=== PATIENT | male | born 1960 | race Caucasian/White ===

== ENCOUNTER → 2016-08-14 | Outpatient (CLI) | payer OTHER ==
[2016-08-14 14:42] LABS: BASO # 0.1 K/mm3 (0.0-0.2); BASO % 1.3 % (0.0-1.0); EOS # 0.2 K/mm3 (0.0-0.50); EOS % 2.2 % (0.0-3.0); LARGE UNSTAINED CELL # 0.2 K/mm3 (0.0-0.4); LARGE UNSTAINED CELL % 3.3 % (0.0-4.0); LYMPH # 2.1 K/mm3 (1.5-4.5); LYMPH % 28.2 % (24.0-44.0); MEAN CORPUSCULAR HEMOGLOBIN 33.6 pg (27.0-33.0); MEAN CORPUSCULAR HGB CONC 33.5 g/dl (32.0-36.5); MEAN CORPUSCULAR VOLUME 100.4 fl (80.0-96.0); MONO # 0.5 K/mm3 (0.0-0.8); MONO % 6.9 % (0.0-5.0); NEUTROPHILS # 3.9 K/mm3 (1.8-7.7); NEUTROPHILS % 58.1 % (36.0-66.0); PLATELET COUNT, AUTOMATED 200 k/mm3 (150-450); RED CELL DISTRIBUTION WIDTH 13.7 % (11.5-14.5); WHITE BLOOD COUNT 6.7 K/mm3 (4.0-10.0)
[2016-08-14 15:12] LABS: ALBUMIN 3.8 GM/DL (3.2-5.2); ALBUMIN/GLOBULIN RATIO 1.27 (1.00-1.93); ALKALINE PHOSPHATASE 71 U/L (45-117); ALT/SGPT 37 U/L (12-78); ANION GAP 5 MEQ/L (8-16); AST/SGOT 20 U/L (15-37); BILIRUBIN,TOTAL 0.4 MG/DL (0.2-1.0); BLOOD UREA NITROGEN 10 MG/DL (7-18); CALCIUM LEVEL 8.8 MG/DL (8.5-10.1); CARBON DIOXIDE LEVEL 31 MEQ/L (21-32); CHLORIDE LEVEL 106 MEQ/L (98-107); CHOLESTEROL LEVEL 148 MG/DL (<200); CREATININE FOR GFR 1.02 MG/DL (0.70-1.30); GLOMERULAR FILTRATION RATE > 60.0 (>56); GLUCOSE, FASTING 80 MG/DL (70-105); POTASSIUM SERUM 4.4 MEQ/L (3.5-5.1); SODIUM LEVEL 142 MEQ/L (136-145); TOTAL PROTEIN 6.8 GM/DL (6.4-8.2); TRIGLYCERIDES LEVEL 122 MG/DL (<150)
== END ==
LOC: M LAB 13:30
PROVIDERS: ATTEND Emergency Medicine
DX: I10 Essential (primary) hypertension (principal)

== ENCOUNTER 2016-09-05 04:48 | Emergency (ER) | payer OTHER ==
[2016-09-05] MEDS ORDERED: CLINDAMYCIN 150 MG CAP As Ordered ONE (07:08)
--- NOTE | 2016-09-05 07:17 | EDDOCDS ---
Nurse's Notes [facility] Name: Leoncio Toribio Age: 55 yrs Sex: Male : 1960 Arrival Date: 09/05/2016 Time: 04:48 Bed I8 / 16 Private MD: Diagnosis: Atypical facial pain-dental abscess? Presentation: 09/05 04:52 Presenting complaint: Patient states: he had all of his teeth pulled Wednesday. Reports nn1 he believes abscess is forming to left side of jaw. Reports increased pain in mouth. Reports he is currently taking antibiotics. Adult Sepsis Screening: The patient does not have new or worsening altered mentation. Patient's respiratory rate is less than 22. Systolic blood pressure is greater than 100. Patient has a qSOFA score of 0- Negative Sepsis Screen. Suicide/Homicide risk assessment- the patient denies having any suicidal and/or homicidal ideations and does not present with any other emotional, behavioral or mental health complaints. Status: Patient is not a pharmacy service associate or dependent. Transition of care: patient was not received from another setting of care. 04:52 Acuity: VERÓNICA Level 4 nn1 04:52 Method Of Arrival: Walkin/Carried/Asstd nn1 Triage Assessment: 04:59 General: Appears in no apparent distress, comfortable, Behavior is appropriate for age, nn1 cooperative. Pain: Location: jaw Pain currently is 4 out of 10 on a pain scale. HIV screening NA for this visit Offered previously. Neurological: Level of Consciousness is awake, alert. EENT: Oral mucosa is moist. Poor dentition noted. All teeth removed, stitches in place. Swelling noted to left lower jaw. . Historical: - Allergies: No known drug Allergies; - Home Meds: 1. aspirin 81 mg Oral TbEC 1 tab once daily 2. bupropion HCl 300 mg Oral Tb24 1 tab once daily 3. carvedilol 12.5 mg oral tab 1 tab 2 times per day 4. gabapentin 600 mg Oral tab 1 tab 3 times per day 5. Percocet 5-325 mg Oral tab 1 tab every 4 hours as needed 6. Simvastatin Unknown Oral once daily 7. amoxicillin-pot clavulanate 500-125 mg Oral tab 1 tab every 8 hours 8. Ventolin HFA 90 mcg/actuation Nebulizer HFAA 1 puff as needed - PMHx: Hypercholesterolemia; Hypertension; [place]; Chronic Back pain; High Cholesterol; - PSHx: Cardiac stents; Carpal Tunnel Repair- Left; Angioplasty (2010); oral surgery; - Social history: Smoking status: Patient uses tobacco products, heavy tobacco smoker. No barriers to communication noted, The patient speaks fluent Turkmen, Speaks appropriately for age. - Family history: Not pertinent. - : The pt / caregiver states he / she is not on anticoagulants. Home medication list is obtained from the patient. - Exposure Risk Screening:: None identified. Screenin:10 Screening information is obtained from the patient. Fall risk: No risks identified. cf2 Assistance ADL's: requires no assistance with activities of daily living. Abuse/DV Screen: The patient / caregiver reports he/she is: not in a situation that causes fear, pain or injury. Nutritional screening: No deficits noted. Advance Directives: Currently, there is no health care proxy. There is no active DNR order. There is no living will. There is no Power of Hot Sealing Machine Operator. home support is adequate. Assessment: 05:09 General: Appears in no apparent distress, uncomfortable, well nourished, well groomed, cf2 Behavior is appropriate for age, cooperative. Pain: Location: dental and mouth Pain currently is 8 out of 10 on a pain scale. Neurological: Level of Consciousness is awake, alert, Oriented to person, place, time. Cardiovascular: Rhythm is regular. Respiratory: Airway is patent Respiratory effort is even, unlabored, Respiratory pattern is regular, symmetrical. Derm: Skin is intact, Skin is dry, Skin is pink, warm & dry. Skin temperature is warm. 05:44 General: Patient laying in bed with at bedside. No apparent distress. Appears cf2 comfortable. Call brown within reach. Will continue to monitor.. 06:25 General: Appears in no apparent distress, Behavior is appropriate for age, cooperative. kas2 Neurological: Level of Consciousness is awake, alert, Oriented to person, place, time. Respiratory: Airway is patent Respiratory effort is even, unlabored, Respiratory pattern is regular, symmetrical. Derm: Skin is intact, Skin is dry, Skin is pink, warm & dry. Skin temperature is warm. 07:15 General: Appears in no apparent distress, comfortable, Behavior is appropriate for age, mlb1 cooperative, pleasant. Pain: Location: mouth Pain currently is 6 out of 10 on a pain scale. Neurological: No deficits noted. EENT: No deficits noted. Respiratory: No deficits noted. Vital Signs: 04:58 BP 132 / 78; Pulse 88; Resp 18; Temp 97.0(O); Pulse Ox 96% on R/A; Weight 77.11 kg; nn1 Height 5 ft. 6 in. (167.64 cm); Pain 4/10; 07:15 BP 125 / 83; Pulse 70; Resp 16; Temp 97.2(TE); Pulse Ox 97% on R/A; Pain 6/10; mlb1 04:58 Body Mass Index 27.44 (77.11 kg, 167.64 cm) nn1 Vitals: 04:58 Log In Time: September 05, 2016 at 04:48. nn1 ED Course: 04:50 Patient visited by Hyacinth Chowdary. gjb 04:50 Patient moved to Waiting gjb 04:53 Triage Initiated nn1 05:03 Patient moved to 14 nn1 05:05 Patient moved to I8 / 16 nn1 05:07 Patient visited by Maryjo Mcclellan RN. cf2 05:11 Patient visited by Maryjo Mcclellan RN. cf2 05:45 Patient visited by Maryjo Mcclellan RN. cf2 06:26 Patient visited by Aleida Talavera RN. kas2 06:38 Patient visited by Aleida Talavera RN. kas2 06:57 Ramón Burk PA-C is PHCP. cc10 06:57 Daryl Jean-Baptiste MD is Attending Physician. cc10 06:59 Patient visited by Ramón Burk PA-C. cc10 06:59 Patient visited by Ramón Burk PA-C. cc10 07:04 Maryjo Mcclellan RN is Primary Nurse. cf2 07:04 Patient visited by Maryjo Mcclellan RN. cf2 07:04 Your, Dentist is Referral Physician. cc10 07:10 No IV's were initiated during this patient's visit. No procedures done that require mlb1 assistance. 07:11 Patient visited by Richie Franklin, TIA. mlb1 07:11 The patient / caregiver is instructed regarding the plan of care and ED course. mlb1 07:16 Patient visited by Rigoberto, Richie B, RN. mlb1 Administered Medications: 07:10 Drug: Clindamycin 300 mg [clindamycin 150 mg capsule (2 caps)] Route: PO; mlb1 Order Results: There are currently no results for this order. Outcome: 07:04 Discharge ordered by Provider. cc10 07:15 Discharge Assessment: Patient awake, alert and oriented x 3. No cognitive and/or mlb1 functional deficits noted. Patient verbalized understanding of disposition instructions. patient administered narcotics - no. The following High Risk Discharge criteria are identified: None. Discharged to home ambulatory. Condition: good. Discharge instructions given to patient, Instructed on discharge instructions, follow up and referral plans. medication usage, Demonstrated understanding of instructions, medications, Pt was receptive of discharge instructions/ teaching. Prescriptions given X 1. No special radiology studies were completed. Property sent home with patient. 07:16 Patient left the ED. mlb1 Signatures: Richie Franklin, RN RN mlb1 Ramón Burk, PA-C PA-C cc10 Rigo AlmaguerRN RN nn1 Hyacinth Chowdary Kim,RN RN kas2 Maryjo McclellanRN RN cf2 MALGORZATA
--- NOTE | 2016-09-05 07:17 | EDDOCDS ---
Physician Documentation [facility] Name: Leoncio Toribio Age: 55 yrs Sex: Male : 1960 Arrival Date: 09/05/2016 Time: 04:48 Bed I8 / 16 Private MD: Disposition: 09/05/16 07:04 Discharged to Home/Self Care. Impression: Atypical facial pain - dental abscess?. - Condition is Stable. - Discharge Instructions: Dental Abscess. - Prescriptions for Clindamycin HCl 300 mg Oral Capsule - take 1 capsule by ORAL route every 6 hours; 40 capsule. - Medication Reconciliation form. - Follow up: Your, Dentist; When: Call to arrange an appointment; Reason: Recheck today's complaints, Continuance of care. - Problem is an ongoing problem. - Symptoms are unchanged. Historical: - Allergies: No known drug Allergies; - Home Meds: 1. aspirin 81 mg Oral TbEC 1 tab once daily 2. bupropion HCl 300 mg Oral Tb24 1 tab once daily 3. carvedilol 12.5 mg oral tab 1 tab 2 times per day 4. gabapentin 600 mg Oral tab 1 tab 3 times per day 5. Percocet 5-325 mg Oral tab 1 tab every 4 hours as needed 6. Simvastatin Unknown Oral once daily 7. amoxicillin-pot clavulanate 500-125 mg Oral tab 1 tab every 8 hours 8. Ventolin HFA 90 mcg/actuation Nebulizer HFAA 1 puff as needed - PMHx: Hypercholesterolemia; Hypertension; [place]; Chronic Back pain; High Cholesterol; - PSHx: Cardiac stents; Carpal Tunnel Repair- Left; Angioplasty (2009); oral surgery; - Social history: Smoking status: Patient uses tobacco products, heavy tobacco smoker. No barriers to communication noted, The patient speaks fluent Cymro, Speaks appropriately for age. - Family history: Not pertinent. - : The pt / caregiver states he / she is not on anticoagulants. Home medication list is obtained from the patient. - Exposure Risk Screening:: None identified. Vital Signs: 09/05 04:58 BP 132 / 78; Pulse 88; Resp 18; Temp 97.0(O); Pulse Ox 96% on R/A; Weight 77.11 kg / nn1 170 lbs; Height 5 ft. 6 in. (167.64 cm); Pain 4/10; 07:15 BP 125 / 83; Pulse 70; Resp 16; Temp 97.2(TE); Pulse Ox 97% on R/A; Pain 6/10; mlb1 04:58 Body Mass Index 27.44 (77.11 kg, 167.64 cm) nn1 MDM: 07:04 Clindamycin 300 mg PO once ordered. cc10 07:13 Financial registration complete. pm4 Administered Medications: 07:10 Drug: Clindamycin 300 mg [clindamycin 150 mg capsule (2 caps)] Route: PO; mlb1 Signatures: Richie Franklin RN RN mlb1 Ramón Burk, PA-C PA-C cc10 Rigo AlmaguerRN RN nn1 Gian Knight, Reg Reg pm4 MTDD
--- NOTE | 2016-09-07 08:17 | EDDOCDS ---
Nurse's Notes [facility] Name: Leoncio Toribio Age: 55 yrs Sex: Male : 1960 Arrival Date: 09/05/2016 Time: 04:48 Bed I8 / 16 Private MD: Diagnosis: Atypical facial pain-dental abscess? Presentation: 09/05 04:52 Presenting complaint: Patient states: he had all of his teeth pulled Wednesday. Reports nn1 he believes abscess is forming to left side of jaw. Reports increased pain in mouth. Reports he is currently taking antibiotics. Adult Sepsis Screening: The patient does not have new or worsening altered mentation. Patient's respiratory rate is less than 22. Systolic blood pressure is greater than 100. Patient has a qSOFA score of 0- Negative Sepsis Screen. Suicide/Homicide risk assessment- the patient denies having any suicidal and/or homicidal ideations and does not present with any other emotional, behavioral or mental health complaints. Status: Patient is not a garage door service technician or dependent. Transition of care: patient was not received from another setting of care. 04:52 Acuity: VERÓNICA Level 4 nn1 04:52 Method Of Arrival: Walkin/Carried/Asstd nn1 Triage Assessment: 04:59 General: Appears in no apparent distress, comfortable, Behavior is appropriate for age, nn1 cooperative. Pain: Location: jaw Pain currently is 4 out of 10 on a pain scale. HIV screening NA for this visit Offered previously. Neurological: Level of Consciousness is awake, alert. EENT: Oral mucosa is moist. Poor dentition noted. All teeth removed, stitches in place. Swelling noted to left lower jaw. . Historical: - Allergies: No known drug Allergies; - Home Meds: 1. aspirin 81 mg Oral TbEC 1 tab once daily 2. bupropion HCl 300 mg Oral Tb24 1 tab once daily 3. carvedilol 12.5 mg oral tab 1 tab 2 times per day 4. gabapentin 600 mg Oral tab 1 tab 3 times per day 5. Percocet 5-325 mg Oral tab 1 tab every 4 hours as needed 6. Simvastatin Unknown Oral once daily 7. amoxicillin-pot clavulanate 500-125 mg Oral tab 1 tab every 8 hours 8. Ventolin HFA 90 mcg/actuation Nebulizer HFAA 1 puff as needed - PMHx: Hypercholesterolemia; Hypertension; [place]; Chronic Back pain; High Cholesterol; - PSHx: Cardiac stents; Carpal Tunnel Repair- Left; Angioplasty (2010); oral surgery; - Social history: Smoking status: Patient uses tobacco products, heavy tobacco smoker. No barriers to communication noted, The patient speaks fluent Vietnamese, Speaks appropriately for age. - Family history: Not pertinent. - : The pt / caregiver states he / she is not on anticoagulants. Home medication list is obtained from the patient. - Exposure Risk Screening:: None identified. Screenin:10 Screening information is obtained from the patient. Fall risk: No risks identified. cf2 Assistance ADL's: requires no assistance with activities of daily living. Abuse/DV Screen: The patient / caregiver reports he/she is: not in a situation that causes fear, pain or injury. Nutritional screening: No deficits noted. Advance Directives: Currently, there is no health care proxy. There is no active DNR order. There is no living will. There is no Power of Allergist/Md. home support is adequate. Assessment: 05:09 General: Appears in no apparent distress, uncomfortable, well nourished, well groomed, cf2 Behavior is appropriate for age, cooperative. Pain: Location: dental and mouth Pain currently is 8 out of 10 on a pain scale. Neurological: Level of Consciousness is awake, alert, Oriented to person, place, time. Cardiovascular: Rhythm is regular. Respiratory: Airway is patent Respiratory effort is even, unlabored, Respiratory pattern is regular, symmetrical. Derm: Skin is intact, Skin is dry, Skin is pink, warm & dry. Skin temperature is warm. 05:44 General: Patient laying in bed with at bedside. No apparent distress. Appears cf2 comfortable. Call brown within reach. Will continue to monitor.. 06:25 General: Appears in no apparent distress, Behavior is appropriate for age, cooperative. kas2 Neurological: Level of Consciousness is awake, alert, Oriented to person, place, time. Respiratory: Airway is patent Respiratory effort is even, unlabored, Respiratory pattern is regular, symmetrical. Derm: Skin is intact, Skin is dry, Skin is pink, warm & dry. Skin temperature is warm. 07:15 General: Appears in no apparent distress, comfortable, Behavior is appropriate for age, mlb1 cooperative, pleasant. Pain: Location: mouth Pain currently is 6 out of 10 on a pain scale. Neurological: No deficits noted. EENT: No deficits noted. Respiratory: No deficits noted. Vital Signs: 04:58 BP 132 / 78; Pulse 88; Resp 18; Temp 97.0(O); Pulse Ox 96% on R/A; Weight 77.11 kg; nn1 Height 5 ft. 6 in. (167.64 cm); Pain 4/10; 07:15 BP 125 / 83; Pulse 70; Resp 16; Temp 97.2(TE); Pulse Ox 97% on R/A; Pain 6/10; mlb1 04:58 Body Mass Index 27.44 (77.11 kg, 167.64 cm) nn1 Vitals: 04:58 Log In Time: September 05, 2016 at 04:48. nn1 ED Course: 04:50 Patient visited by Hyacinth Chowdary. gjb 04:50 Patient moved to Waiting gjb 04:53 Triage Initiated nn1 05:03 Patient moved to 14 nn1 05:05 Patient moved to I8 / 16 nn1 05:07 Patient visited by Maryjo Mcclellan RN. cf2 05:11 Patient visited by Maryjo Mcclellan RN. cf2 05:45 Patient visited by Maryjo Mcclellan RN. cf2 06:26 Patient visited by Aleida Talavera RN. kas2 06:38 Patient visited by Aleida Talavera RN. kas2 06:57 Ramón Burk PA-C is PHCP. cc10 06:57 Daryl Jean-Baptiste MD is Attending Physician. cc10 06:59 Patient visited by Ramón Burk PA-C. cc10 06:59 Patient visited by Ramón Burk PA-C. cc10 07:04 Maryjo Mcclellan RN is Primary Nurse. cf2 07:04 Patient visited by Maryjo Mcclellan RN. cf2 07:04 Your, Dentist is Referral Physician. cc10 07:10 No IV's were initiated during this patient's visit. No procedures done that require mlb1 assistance. 07:11 Patient visited by Richie Franklin, TIA. mlb1 07:11 The patient / caregiver is instructed regarding the plan of care and ED course. mlb1 07:16 Patient visited by Richie Franklin RN. mlb1 07:24 [facility] Payment Agreement was scanned into [employer] and attached to record. pm4 17:01 T-Sheet-- Draft Copy was scanned into [employer] and attached to record. klr Administered Medications: 07:10 Drug: Clindamycin 300 mg [clindamycin 150 mg capsule (2 caps)] Route: PO; mlb1 Order Results: There are currently no results for this order. Outcome: 07:04 Discharge ordered by Provider. cc10 07:15 Discharge Assessment: Patient awake, alert and oriented x 3. No cognitive and/or mlb1 functional deficits noted. Patient verbalized understanding of disposition instructions. patient administered narcotics - no. The following High Risk Discharge criteria are identified: None. Discharged to home ambulatory. Condition: good. Discharge instructions given to patient, Instructed on discharge instructions, follow up and referral plans. medication usage, Demonstrated understanding of instructions, medications, Pt was receptive of discharge instructions/ teaching. Prescriptions given X 1. No special radiology studies were completed. Property sent home with patient. 07:16 Patient left the ED. mlb1 Signatures: Richie Franklin, RN RN mlb1 Ramón Burk, PA-C PA-C cc10 Rigo AlmaguerRN RN nn1 Hyacinth Chowdary KimRN RN michael2 Carol Nix Christina,RN RN cf2 Gian Knight, Reg Reg pm4 Chart Complete MTDD
--- NOTE | 2016-09-07 08:17 | EDDOCDS ---
Physician Documentation [facility] Name: Leoncio Toribio Age: 55 yrs Sex: Male : 1960 Arrival Date: 09/05/2016 Time: 04:48 Bed I8 / 16 Private MD: Disposition: 09/05/16 07:04 Discharged to Home/Self Care. Impression: Atypical facial pain - dental abscess?. - Condition is Stable. - Discharge Instructions: Dental Abscess. - Prescriptions for Clindamycin HCl 300 mg Oral Capsule - take 1 capsule by ORAL route every 6 hours; 40 capsule. - Medication Reconciliation form. - Follow up: Your, Dentist; When: Call to arrange an appointment; Reason: Recheck today's complaints, Continuance of care. - Problem is an ongoing problem. - Symptoms are unchanged. Historical: - Allergies: No known drug Allergies; - Home Meds: 1. aspirin 81 mg Oral TbEC 1 tab once daily 2. bupropion HCl 300 mg Oral Tb24 1 tab once daily 3. carvedilol 12.5 mg oral tab 1 tab 2 times per day 4. gabapentin 600 mg Oral tab 1 tab 3 times per day 5. Percocet 5-325 mg Oral tab 1 tab every 4 hours as needed 6. Simvastatin Unknown Oral once daily 7. amoxicillin-pot clavulanate 500-125 mg Oral tab 1 tab every 8 hours 8. Ventolin HFA 90 mcg/actuation Nebulizer HFAA 1 puff as needed - PMHx: Hypercholesterolemia; Hypertension; [place]; Chronic Back pain; High Cholesterol; - PSHx: Cardiac stents; Carpal Tunnel Repair- Left; Angioplasty (2009); oral surgery; - Social history: Smoking status: Patient uses tobacco products, heavy tobacco smoker. No barriers to communication noted, The patient speaks fluent Martiniquais, Speaks appropriately for age. - Family history: Not pertinent. - : The pt / caregiver states he / she is not on anticoagulants. Home medication list is obtained from the patient. - Exposure Risk Screening:: None identified. Vital Signs: 09/05 04:58 BP 132 / 78; Pulse 88; Resp 18; Temp 97.0(O); Pulse Ox 96% on R/A; Weight 77.11 kg / nn1 170 lbs; Height 5 ft. 6 in. (167.64 cm); Pain 4/10; 07:15 BP 125 / 83; Pulse 70; Resp 16; Temp 97.2(TE); Pulse Ox 97% on R/A; Pain 6/10; mlb1 04:58 Body Mass Index 27.44 (77.11 kg, 167.64 cm) nn1 MDM: 07:04 Clindamycin 300 mg PO once ordered. cc10 07:13 Financial registration complete. pm4 07:24 [facility] Payment Agreement was scanned into [employer] and attached to record. pm4 17:01 T-Sheet-- Draft Copy was scanned into [employer] and attached to record. klr Administered Medications: 07:10 Drug: Clindamycin 300 mg [clindamycin 150 mg capsule (2 caps)] Route: PO; mlb1 Signatures: Richie Franklin RN RN mlb1 Ramón Burk, PA-C PA-C cc10 Rigo Almaguer RN RN nn1 Carol Nix klr Gian Knight, Reg Reg pm4 The chart was reviewed and I authenticate all verbal orders and agree with the evaluation and treatment provided.Attachments: 07:24 [facility] Payment Agreement pm4 17:01 T-Sheet-- Draft Copy klr Chart Complete MTDD
--- NOTE | 2016-09-07 08:17 | EDDOCDS ---
Physician Documentation [facility] Name: Leoncio Toribio Age: 55 yrs Sex: Male : 1960 Arrival Date: 09/05/2016 Time: 04:48 Bed I8 / 16 Private MD: Disposition: 09/05/16 07:04 Discharged to Home/Self Care. Impression: Atypical facial pain - dental abscess?. - Condition is Stable. - Discharge Instructions: Dental Abscess. - Prescriptions for Clindamycin HCl 300 mg Oral Capsule - take 1 capsule by ORAL route every 6 hours; 40 capsule. - Medication Reconciliation form. - Follow up: Your, Dentist; When: Call to arrange an appointment; Reason: Recheck today's complaints, Continuance of care. - Problem is an ongoing problem. - Symptoms are unchanged. Historical: - Allergies: No known drug Allergies; - Home Meds: 1. aspirin 81 mg Oral TbEC 1 tab once daily 2. bupropion HCl 300 mg Oral Tb24 1 tab once daily 3. carvedilol 12.5 mg oral tab 1 tab 2 times per day 4. gabapentin 600 mg Oral tab 1 tab 3 times per day 5. Percocet 5-325 mg Oral tab 1 tab every 4 hours as needed 6. Simvastatin Unknown Oral once daily 7. amoxicillin-pot clavulanate 500-125 mg Oral tab 1 tab every 8 hours 8. Ventolin HFA 90 mcg/actuation Nebulizer HFAA 1 puff as needed - PMHx: Hypercholesterolemia; Hypertension; [place]; Chronic Back pain; High Cholesterol; - PSHx: Cardiac stents; Carpal Tunnel Repair- Left; Angioplasty (2009); oral surgery; - Social history: Smoking status: Patient uses tobacco products, heavy tobacco smoker. No barriers to communication noted, The patient speaks fluent [place] Guine[place], Speaks appropriately for age. - Family history: Not pertinent. - : The pt / caregiver states he / she is not on anticoagulants. Home medication list is obtained from the patient. - Exposure Risk Screening:: None identified. Vital Signs: 09/05 04:58 BP 132 / 78; Pulse 88; Resp 18; Temp 97.0(O); Pulse Ox 96% on R/A; Weight 77.11 kg / nn1 170 lbs; Height 5 ft. 6 in. (167.64 cm); Pain 4/10; 07:15 BP 125 / 83; Pulse 70; Resp 16; Temp 97.2(TE); Pulse Ox 97% on R/A; Pain 6/10; mlb1 04:58 Body Mass Index 27.44 (77.11 kg, 167.64 cm) nn1 MDM: 07:04 Clindamycin 300 mg PO once ordered. cc10 07:13 Financial registration complete. pm4 07:24 [facility] Payment Agreement was scanned into [employer] and attached to record. pm4 17:01 T-Sheet-- Draft Copy was scanned into [employer] and attached to record. klr Administered Medications: 07:10 Drug: Clindamycin 300 mg [clindamycin 150 mg capsule (2 caps)] Route: PO; mlb1 Signatures: Richie Franklin RN RN mlb1 Ramón Burk, PA-C PA-C cc10 Rigo Almaguer RN RN nn1 Carol Nix klr Gian Knight, Reg Reg pm4 The chart was reviewed and I authenticate all verbal orders and agree with the evaluation and treatment provided.Attachments: 07:24 [facility] Payment Agreement pm4 17:01 T-Sheet-- Draft Copy klr Chart Complete MTDD
== END 2016-09-05 07:16 | disposition home or self-care (01) ==
LOC: M ED 04:48
DX: K08.9 Disorder of teeth and supporting structures, unspecified (principal); E78.00 Pure hypercholesterolemia, unspecified; I10 Essential (primary) hypertension; I25.2 Old myocardial infarction; M54.9 Dorsalgia, unspecified; F17.210 Nicotine dependence, cigarettes, uncomplicated; Z95.5 Presence of coronary angioplasty implant and graft; Z79.82 Long term (current) use of aspirin; Z79.899 Other long term (current) drug therapy

== ENCOUNTER → 2016-09-29 | Outpatient (REF) | payer OTHER | LOC: M LAB REF 16:26 | PROVIDERS: ATTEND Neurological Surgery | DX: Z01.818 Encounter for other preprocedural examination (principal) ==

== ENCOUNTER → 2016-09-30 | Outpatient (CLI) | payer OTHER ==
--- NOTE | 2016-09-30 11:11 | PFTRPT ---
PULMONARY FUNCTION TESTING Spirometry: Baseline study of excellent technical quality. The forced vital capacity is normal. The FEV1 is in proportion. The obstructive index is, therefore, normal. Flow Volume Loop: The expiratory limb of the flow volume loop suggests some nonspecific flow rate reduction. Lung Volumes: The total lung capacity is mildly elevated. The residual volume raises a question of air trapping. Diffusion Capacity: The diffusion capacity is reduced and does not correct for alveolar volume. Hemoglobin: No hemoglobin is available for correction. Airway Mechanics: Airways resistance and conductance are normal. Impression: Significant diffusion capacity impairment with underlying air trapping. Please correlate clinically. MTDD
== END ==
LOC: M CARPUL 10:33
PROVIDERS: ATTEND Neurological Surgery
DX: Z01.818 Encounter for other preprocedural examination (principal)

== ENCOUNTER → 2016-10-02 | Outpatient (CLI) | payer OTHER ==
[~2016-10-02] MED LIST: ASPI81TA21 PO; BUPR300T34 PO; CALC600T57 PO; CARV12.5 PO; DRIS50002 PO; GABA300C3 PO; MULT1TAB10 PO; OXYC-517 PO; SIMV40TA2 PO
[2016-10-02 20:27] LABS: BASO # 0.1 K/mm3 (0.0-0.2); BASO % 0.7 % (0.0-1.0); EOS # 0.2 K/mm3 (0.0-0.50); EOS % 2.8 % (0.0-3.0); LARGE UNSTAINED CELL # 0.3 K/mm3 (0.0-0.4); LARGE UNSTAINED CELL % 4.5 % (0.0-4.0); LYMPH # 2.3 K/mm3 (1.5-4.5); LYMPH % 30.3 % (24.0-44.0); MEAN CORPUSCULAR HEMOGLOBIN 33.2 pg (27.0-33.0); MEAN CORPUSCULAR HGB CONC 33.4 g/dl (32.0-36.5); MEAN CORPUSCULAR VOLUME 99.5 fl (80.0-96.0); MONO # 0.6 K/mm3 (0.0-0.8); MONO % 7.9 % (0.0-5.0); NEUTROPHILS % 53.7 % (36.0-66.0); PLATELET COUNT, AUTOMATED 225 k/mm3 (150-450); RED CELL DISTRIBUTION WIDTH 12.8 % (11.5-14.5); WHITE BLOOD COUNT 7.5 K/mm3 (4.0-10.0)
[2016-10-02 20:28] LABS: INR 0.97
[2016-10-02 21:22] LABS: COLLAGEN ADP 84 SECONDS (56-103)
[2016-10-02 21:33] LABS: ALBUMIN 3.8 GM/DL (3.2-5.2); ALBUMIN/GLOBULIN RATIO 1.06 (1.00-1.93); ALKALINE PHOSPHATASE 83 U/L (45-117); ALT/SGPT 34 U/L (12-78); ANION GAP 11 MEQ/L (8-16); AST/SGOT 22 U/L (15-37); BILIRUBIN,TOTAL 0.3 MG/DL (0.2-1.0); BLOOD UREA NITROGEN 14 MG/DL (7-18); CALCIUM LEVEL 9.3 MG/DL (8.5-10.1); CARBON DIOXIDE LEVEL 28 MEQ/L (21-32); CHLORIDE LEVEL 104 MEQ/L (98-107); CREATININE FOR GFR 1.11 MG/DL (0.70-1.30); GLOMERULAR FILTRATION RATE > 60.0 (>56); GLUCOSE, FASTING 89 MG/DL (70-105); SODIUM LEVEL 143 MEQ/L (136-145); TOTAL PROTEIN 7.4 GM/DL (6.4-8.2)
== END ==
LOC: M WUC 17:03
PROVIDERS: ATTEND Neurological Surgery
DX: Z01.818 Encounter for other preprocedural examination (principal); M54.9 Dorsalgia, unspecified; I10 Essential (primary) hypertension; Z79.899 Other long term (current) drug therapy; Z79.82 Long term (current) use of aspirin; I25.2 Old myocardial infarction

== ENCOUNTER → 2016-10-03 | Outpatient (REF) | payer OTHER ==
[2016-10-03 15:06] LABS: CALCIUM OXALATE CRYSTALS SMALL
== END ==
LOC: M LAB REF 14:34
PROVIDERS: ATTEND Neurological Surgery
DX: Z01.818 Encounter for other preprocedural examination (principal)

== ENCOUNTER → 2016-10-09 | Outpatient (CLI) | payer OTHER ==
--- NOTE | 2016-10-09 17:52 | REP ---
CT study of the chest without contrast: History: Personal history of malignant neoplasm of the lung. Comparison CT study of the chest is from June 16, 2016. CT findings: There are emphysematous changes and bullae in the upper lobes bilaterally. These are unchanged. No pulmonary nodule or mass lesion is seen. There is a granulomatous calcification in the left lower lobe. No infiltrate is seen. No hilar or mediastinal mass or adenopathy is observed. There is mild linear fibrosis in the left lower lobe. Coronary artery vascular calcification is observed, unchanged. No bony destructive lesion is seen. No adrenal lesion is observed on either side. There is a cyst at the upper pole of the left kidney and a few diverticula are seen in the upper colon. Impression: Evidence of COPD with multiple bullae in the upper lobes bilaterally. Some linear fibrosis is noted in the left lower lobe. Extensive vascular calcification is noted. Otherwise no active disease. Signed by Bobby Strauss MD 10/09/2016 07:02 P
== END ==
LOC: M RAD 15:02
PROVIDERS: ATTEND Neurological Surgery
DX: Z85.118 Personal history of other malignant neoplasm of bronchus and lung (principal); J44.9 Chronic obstructive pulmonary disease, unspecified

== ENCOUNTER → 2016-10-15 | Day surgery (SDC) | payer OTHER ==
[~2016-10-15] VITALS: Ht 168.9 cm; Wt 77.1 kg
[~2016-10-15] MED LIST changes: +BACITRACIN PWD 50,000 UNITS VIAL As Ordered ONE; +CEFUROXIME SODIUM 1.5 GM in D5W MINI-BAG PLUS 50 ML IV ONE; +LIDOCAINE 2% INJ 100 MG/5 ML SDV (FOR ANES.) As Ordered ONE; +LR 1,000 ML IV SCH; +METOCLOPRAMIDE INJ 10MG/2ML VIAL (J2765) As Ordered ONE; +MIDAZOLAM INJ 2 MG/2 ML VIAL (J2250) As Ordered ONE; +PROPOFOL 200 MG/20 ML VIAL As Ordered ONE; +ROCURONIUM BROMIDE 50 MG/5 ML VIAL As Ordered ONE; +THROMBIN SOLN 20,000 UNITS KIT As Ordered ONE; +dexameTHASONE 4 MG/ML 1ML VIAL (J1100) As Ordered ONE; +dexameTHASONE 4 MG/ML 1ML VIAL (J1100) IV ONE; +fentaNYL 250 MCG/5 ML INJECTION (J3010) As Ordered ONE; +methylPREDNISolone SUSP 40 MG/ML (DEPO-medrol) VIAL (J1030) As Ordered ONE
[2016-10-15 08:35] VITALS: BP 109/83
[2016-10-15 09:26] LABS: COLLAGEN ADP 96 SECONDS (56-103)
== END ==
LOC: M SDC 07:41
PROVIDERS: ATTEND Neurological Surgery
DX: M47.26 Other spondylosis with radiculopathy, lumbar region (principal); Z53.09 Procedure and treatment not carried out because of other contraindication
CPT/HCPCS: 36415; 85576; J0697; J1100; J2765

== ENCOUNTER → 2016-10-22 | Outpatient (REF) | payer OTHER ==
[~2016-10-22] MED LIST changes: -BACITRACIN PWD 50,000 UNITS VIAL As Ordered ONE; -CEFUROXIME SODIUM 1.5 GM in D5W MINI-BAG PLUS 50 ML IV ONE; +GABA-282 PO; -GABA300C3 PO; -LIDOCAINE 2% INJ 100 MG/5 ML SDV (FOR ANES.) As Ordered ONE; -LR 1,000 ML IV SCH; -METOCLOPRAMIDE INJ 10MG/2ML VIAL (J2765) As Ordered ONE; -MIDAZOLAM INJ 2 MG/2 ML VIAL (J2250) As Ordered ONE; -PROPOFOL 200 MG/20 ML VIAL As Ordered ONE; -ROCURONIUM BROMIDE 50 MG/5 ML VIAL As Ordered ONE; -THROMBIN SOLN 20,000 UNITS KIT As Ordered ONE; -dexameTHASONE 4 MG/ML 1ML VIAL (J1100) As Ordered ONE; -dexameTHASONE 4 MG/ML 1ML VIAL (J1100) IV ONE; -fentaNYL 250 MCG/5 ML INJECTION (J3010) As Ordered ONE; -methylPREDNISolone SUSP 40 MG/ML (DEPO-medrol) VIAL (J1030) As Ordered ONE
== END ==
LOC: M LABDRAW1 11:21
PROVIDERS: ATTEND Neurological Surgery
DX: M54.81 Occipital neuralgia (principal); Z01.818 Encounter for other preprocedural examination

== ENCOUNTER → 2016-11-04 | Outpatient (REF) | payer OTHER ==
[2016-11-04 17:03] LABS: ALBUMIN 3.7 GM/DL (3.2-5.2); ALBUMIN/GLOBULIN RATIO 1.12 (1.00-1.93); ALKALINE PHOSPHATASE 78 U/L (45-117); ALT/SGPT 30 U/L (12-78); ANION GAP 8 MEQ/L (8-16); AST/SGOT 19 U/L (15-37); BILIRUBIN,TOTAL 0.3 MG/DL (0.2-1.0); BLOOD UREA NITROGEN 15 MG/DL (7-18); CALCIUM LEVEL 8.9 MG/DL (8.5-10.1); CARBON DIOXIDE LEVEL 30 MEQ/L (21-32); CHLORIDE LEVEL 104 MEQ/L (98-107); CREATININE FOR GFR 1.07 MG/DL (0.70-1.30); GLOMERULAR FILTRATION RATE > 60.0 (>56); GLUCOSE, FASTING 76 MG/DL (70-105); SODIUM LEVEL 142 MEQ/L (136-145)
[2016-11-04 17:25] LABS: BASO % 0.7 % (0.0-1.0); EOS # 0.2 K/mm3 (0.0-0.50); EOS % 3.4 % (0.0-3.0); LARGE UNSTAINED CELL # 0.2 K/mm3 (0.0-0.4); LARGE UNSTAINED CELL % 3.7 % (0.0-4.0); LYMPH # 1.9 K/mm3 (1.5-4.5); LYMPH % 33.7 % (24.0-44.0); MEAN CORPUSCULAR HEMOGLOBIN 32.8 pg (27.0-33.0); MEAN CORPUSCULAR HGB CONC 32.7 g/dl (32.0-36.5); MEAN CORPUSCULAR VOLUME 100.2 fl (80.0-96.0); MONO # 0.5 K/mm3 (0.0-0.8); MONO % 8.1 % (0.0-5.0); NEUTROPHILS # 2.9 K/mm3 (1.8-7.7); NEUTROPHILS % 50.3 % (36.0-66.0); PLATELET COUNT, AUTOMATED 199 k/mm3 (150-450); WHITE BLOOD COUNT 5.7 K/mm3 (4.0-10.0)
[2016-11-04 17:39] LABS: INR 0.99
== END ==
LOC: M LABDRAW1 15:41
PROVIDERS: ATTEND Neurological Surgery
DX: Z01.818 Encounter for other preprocedural examination (principal)

== ENCOUNTER 2016-11-12 09:36 | Day surgery (SDC) | payer OTHER ==
[~2016-11-12] VITALS: Ht 167.6 cm; Wt 77.1 kg
[2016-11-12] MEDS ORDERED: CEFUROXIME SODIUM 1.5 GM in D5W MINI-BAG PLUS 50 ML IV ONE (09:45)
[2016-11-12] MEDS ORDERED: LR 1,000 ML IV SCH ×2 (09:45→17:15)
[2016-11-12] MEDS ORDERED: dexameTHASONE 4 MG/ML 1ML VIAL (J1100) IV ONE (09:45)
[2016-11-12] MEDS ORDERED: PROPOFOL 200 MG/20 ML VIAL As Ordered ONE (12:07)
[2016-11-12] MEDS ORDERED: fentaNYL 250 MCG/5 ML INJECTION (J3010) As Ordered ONE (12:07)
[2016-11-12] MEDS ORDERED: LIDOCAINE 2% INJ 100 MG/5 ML SDV (FOR ANES.) As Ordered ONE (12:07)
[2016-11-12] MEDS ORDERED: MIDAZOLAM INJ 2 MG/2 ML VIAL (J2250) As Ordered ONE (12:07)
[2016-11-12] MEDS ORDERED: ROCURONIUM BROMIDE 50 MG/5 ML VIAL As Ordered ONE (12:07)
[2016-11-12] MEDS ORDERED: THROMBIN SOLN 20,000 UNITS KIT As Ordered ONE (12:41)
[2016-11-12] MEDS ORDERED: BACITRACIN PWD 50,000 UNITS VIAL As Ordered ONE (12:41)
[2016-11-12] MEDS ORDERED: methylPREDNISolone SUSP 40 MG/ML (DEPO-medrol) VIAL (J1030) As Ordered ONE (12:41)
--- NOTE | 2016-11-12 14:38 | REP ---
LUMBAR SPINE, TWO VIEWS: HISTORY: Spondylosis. COMPARISON: 07/06/2016 Two portable lateral radiographs were obtained. The second radiograph demonstrates a metal probe overlying the neural arch at the L1-2 level. Signed by Elliott Dean MD 11/12/2016 02:59 P
[2016-11-12] MEDS ORDERED: ETOMIDATE INJ 20MG/10ML VIAL As Ordered ONE (15:08)
[2016-11-12] MEDS ORDERED: ONDANSETRON 4MG/2ML VIAL (J2405) As Ordered ONE (15:09)
[2016-11-12] MEDS ORDERED: dexameTHASONE 4 MG/ML 1ML VIAL (J1100) As Ordered ONE (15:09)
[2016-11-12] MEDS ORDERED: fentaNYL 100 MCG/2 ML INJECTION (J3010) As Ordered ONE ×2 (15:21→17:05)
[2016-11-12] MEDS ORDERED: HYDROmorphone HCL 2 MG/ML 1ML VIAL (J1170) As Ordered ONE (15:54)
[2016-11-12] MEDS ORDERED: NEOSTIGMINE 1MG/ML 5 ML SYRINGE (J2710) As Ordered ONE (16:03)
[2016-11-12] MEDS ORDERED: GLYCOPYRROLATE INJ 0.2 MG/ML 2 ML VIAL As Ordered ONE (16:03)
[2016-11-12] MEDS ORDERED: PERCOCET 5MG/325MG TAB As Ordered ONE (17:04)
[2016-11-12] MEDS: fentaNYL 100 MCG/2 ML INJECTION (J3010) IV PRN ×3 (17:05→17:26)
[2016-11-12] MEDS ORDERED: ONDANSETRON 4MG/2ML VIAL (J2405) IV PRN ×2 (17:15→17:30)
[2016-11-12] MEDS ORDERED: METOCLOPRAMIDE INJ 10MG/2ML VIAL (J2765) IV PRN (17:15)
[2016-11-12] MEDS ORDERED: PERCOCET 5MG/325MG TAB PO PRN (17:15)
[2016-11-12] MEDS ORDERED: HYDROmorphone HCL 1 MG/ML SYRINGE (J1170) IV PRN (17:15)
[2016-11-12] MEDS ORDERED: MEPERIDINE INJ 25 MG/ML VIAL (J2175) IV PRN (17:15)
[2016-11-12] MEDS ORDERED: MORPHINE 4 MG/ML 1ML SYRINGE IV PRN (17:30)
[2016-11-12] MEDS ORDERED: MORPHINE 2 MG/ML 1ML SYRINGE IV PRN (17:30)
[2016-11-12] MEDS ORDERED: NORCO, ANEXSIA 5/325MG TABLET (HYDROcodone/ACETAMINOPHEN) PO PRN (17:30)
[2016-11-12] MEDS ORDERED: ACETAMINOPHEN TAB 650MG DOSE (2X325MG) PO PRN (17:30)
[2016-11-12 18:00] VITALS: BP 139/90
[2016-11-12] MEDS: KCL 20MEQ IN D5/0.45NS 1000ML 1,000 ML IV SCH (18:23)
[2016-11-12 18:30] VITALS: BP 143/84
[2016-11-12] MEDS: NORCO, ANEXSIA 5/325MG TABLET (HYDROcodone/ACETAMINOPHEN) PO PRN (19:21)
[2016-11-12 19:30] VITALS: BP 132/89
--- NOTE | 2016-11-12 20:11 | RO ---
DATE OF PROCEDURE: 11/12/2016 PREPROCEDURE DIAGNOSIS: Lumbar spondylosis, radiculopathy, neurogenic claudication, apophyseal arthralgia. POSTPROCEDURE DIAGNOSIS: Lumbar spondylosis, radiculopathy, neurogenic claudication, apophyseal arthralgia. PROCEDURE: Right L1 and L2 partial laminectomies with facetectomies and foraminotomies, and partial facet rhizotomies L1-2 and L2-3 on the right. SURGEON: Dr. Cari Domínguez PARAMEDICAL AIDE: Kalli Valencia RPA ANESTHESIA: General. FINDINGS: Please see my office note for detailed preoperative evaluation and discussion. The patient was seen in the preoperative area with his . There was no clinical change. The patient had a longstanding history of severe pain in his low back, right groin and upper thigh with occasional neurogenic claudication down the posterolateral aspect of his thigh and leg, though he claims his major issue is severe pain in his right groin and upper thigh, which sometimes even goes toward his knees, mostly on the right. The patient's workup shows diffuse degenerative changes throughout the lumbosacral spine involving the disc spaces as well as the posterior ligaments. At L1 and L2 on the right, it showed disc fragment and/or osteophyte causing compression or irritation to the exiting L1, traversing L2 nerve root and also it appeared there is mild compression of the thecal sac at the superior rim of L2. The patient and his were aware of all options, risk, scope, expected outcome, sequela and complications of the proposed salvage surgery. He understood his surgery may be staged and may require spinal reconstruction at a later stage or initially. The patient understood the salvage nature of the surgery. He understood that not all of his symptoms could be readily explained on his MRI and electrodiagnostic or clinical findings, this all not may be addressed. The patient understood the risk of surgery included, but not limited to , paralysis, spinal fluid leakage, meningitis, persistence or worsening of symptoms and/or deficits, need for multiple surgeries and that without any guarantees and/or infection, bleeding, pulmonary embolism (PE), deep vein thrombosis (DVT), myocardial infarction (IL) and/or any catastrophic sequela. At his request and after all matters pertaining to surgery, anesthesia and followup care had been discussed with him and his , he wished to proceed with surgery. He claimed, once again, there is no way he can live with this pain in his right groin and thigh and is willing to take any or all risk for any possible benefit. After all matters pertaining to surgery, anesthesia and followup care had been discussed with him once again, he wished to proceed with surgery. DESCRIPTION OF PROCEDURE: Once in the operating room, general endotracheal anesthesia was given, and the area of surgery was prepped and draped in the usual sterile fashion after positioning him prone on translucent Carlos frame and a fluoroscopic table. The area of surgery was prepped and draped in the usual sterile fashion. Perioperative x-rays were done to establish the location of L1-L2. A skin incision was given between L1 and L2 spinous processes, lumbar dorsal fascia region and incised to the right of the midline. There was marked hypertrophy of exposed facets. The posterolateral aspect of these were coagulated with the bipolar cautery in the hope of achieving partial facet rhizotomies. Generous joan-semilaminectomy was performed at L1 and L2. Hypertrophic ligamentum flavum was removed. There was marked compression of the lateral recess and severe subarticular stenosis from hypertrophic changes of the facets and spondylytic ridge and fairly large fibrous disc and/or osteophyte, which was further displacing the thecal sac posteriorly and somewhat laterally. Complete decompression of the thecal sac was done. The decompression was carried out superiorly in between the two pedicles and distally until the region of the L3 nerve root, which was also quite compressed. The disc space was entered. It was hard and firm and complete decompression was left in situ as it appeared good decompression had been undertaken for the L1, L2 and L3 nerve roots. Hemostasis was then checked and secured. Blood loss was about 100 mL or less according to the operating room staff. At this time, the wound was closed in anatomic layers. Operative findings were discussed with the patient's in the waiting room. Fax Copy To: Dr. Cari Domínguez Copy To: Primary care physician
[2016-11-12 20:30] VITALS: BP 158/88
[2016-11-12 21:30] VITALS: BP 149/91
[2016-11-12] MEDS: CEFUROXIME SODIUM 750 MG in D5W MINI-BAG PLUS 50 ML IV SCH (21:50)
[2016-11-12] MEDS: CARISOPRODOL 350 MG TAB PO SCH (21:50)
[2016-11-12 22:30] VITALS: BP 122/82
[2016-11-13 02:00] VITALS: BP 127/77
[2016-11-13] MEDS: NORCO, ANEXSIA 5/325MG TABLET (HYDROcodone/ACETAMINOPHEN) PO PRN ×4 (03:11→17:50)
[2016-11-13] MEDS: KCL 20MEQ IN D5/0.45NS 1000ML 1,000 ML IV SCH ×2 (05:37→13:30)
[2016-11-13] MEDS: CEFUROXIME SODIUM 750 MG in D5W MINI-BAG PLUS 50 ML IV SCH ×2 (05:42→16:07)
[2016-11-13 06:00] VITALS: BP 141/82
[2016-11-13] MEDS: CARISOPRODOL 350 MG TAB PO SCH ×2 (08:06→16:07)
[2016-11-13] MEDS ORDERED: ASPIRIN 81 MG CHEW TABLET PO SCH (09:00)
[2016-11-13 10:00] VITALS: BP 134/88
[2016-11-13 14:00] VITALS: BP 153/93
[2016-11-13] MEDS ORDERED: CIPR250T3 PO (17:24)
[2016-11-13] MEDS ORDERED: HYDR-3713 PO (17:24)
[2016-11-13] MEDS ORDERED: ASPI81CH32 PO (17:24)
[2016-11-13] MEDS ORDERED: TYLE325T5 PO (17:24)
== END 2016-11-13 17:55 | disposition home or self-care (01) ==
LOC: M SDC 09:36 → M MS5PR 18:05 → M SDC 11-13 17:55
PROVIDERS: ATTEND Neurological Surgery
DX: M47.26 Other spondylosis with radiculopathy, lumbar region (principal); G95.19 Other vascular myelopathies; M46.1 Sacroiliitis, not elsewhere classified; I10 Essential (primary) hypertension; I25.10 Atherosclerotic heart disease of native coronary artery without angina pectoris; I25.2 Old myocardial infarction; Z95.5 Presence of coronary angioplasty implant and graft; H40.9 Unspecified glaucoma; M19.90 Unspecified osteoarthritis, unspecified site; J44.9 Chronic obstructive pulmonary disease, unspecified; N40.0 Benign prostatic hyperplasia without lower urinary tract symptoms; M81.0 Age-related osteoporosis without current pathological fracture; F17.210 Nicotine dependence, cigarettes, uncomplicated; Z79.899 Other long term (current) drug therapy; Z79.82 Long term (current) use of aspirin
CPT/HCPCS: 63030; 63185; 72100; 96365; 96376; J0697; J1030; J1100; J1170; J2250; J2405; J2710; J2765; J3010

== ENCOUNTER → 2017-02-09 | Outpatient (REF) | payer OTHER ==
[~2017-02-09] MED LIST changes: +ASPI81CH32 PO; +CIPR250T3 PO; +HYDR-3713 PO; +KEFL500C17 PO; +PRED20TA PO; +TYLE325T5 PO
[2017-02-09 11:42] LABS: BASO % 0.4 % (0.0-1.0); EOS # 0.1 K/mm3 (0.0-0.50); EOS % 1.5 % (0.0-3.0); LARGE UNSTAINED CELL # 0.2 K/mm3 (0.0-0.4); LYMPH # 1.8 K/mm3 (1.5-4.5); LYMPH % 19.3 % (24.0-44.0); MEAN CORPUSCULAR HEMOGLOBIN 33.9 pg (27.0-33.0); MEAN CORPUSCULAR HGB CONC 33.7 g/dl (32.0-36.5); MEAN CORPUSCULAR VOLUME 100.5 fl (80.0-96.0); MONO # 0.7 K/mm3 (0.0-0.8); MONO % 8.1 % (0.0-5.0); NEUTROPHILS # 5.8 K/mm3 (1.8-7.7); NEUTROPHILS % 68.8 % (36.0-66.0); PLATELET COUNT, AUTOMATED 269 k/mm3 (150-450); RED CELL DISTRIBUTION WIDTH 13.3 % (11.5-14.5); WHITE BLOOD COUNT 8.4 K/mm3 (4.0-10.0)
[2017-02-09 12:13] LABS: ALBUMIN 3.1 GM/DL (3.2-5.2); ALBUMIN/GLOBULIN RATIO 1.03 (1.00-1.93); ALKALINE PHOSPHATASE 62 U/L (45-117); ALT/SGPT 32 U/L (12-78); ANION GAP 8 MEQ/L (8-16); AST/SGOT 20 U/L (15-37); BILIRUBIN,TOTAL 0.2 MG/DL (0.2-1.0); BLOOD UREA NITROGEN 11 MG/DL (7-18); CALCIUM LEVEL 9.1 MG/DL (8.5-10.1); CARBON DIOXIDE LEVEL 28 MEQ/L (21-32); CHLORIDE LEVEL 105 MEQ/L (98-107); CREATININE FOR GFR 0.85 MG/DL (0.70-1.30); GLOMERULAR FILTRATION RATE > 60.0 (>56); GLUCOSE, FASTING 94 MG/DL (70-105); SODIUM LEVEL 141 MEQ/L (136-145); TOTAL PROTEIN 6.1 GM/DL (6.4-8.2)
[2017-02-15 08:07] LABS: O+P EXAM Final report (.)
== END ==
LOC: M LABDRAW1 11:28
PROVIDERS: ATTEND Family Medicine
DX: R53.83 Other fatigue (principal); R19.7 Diarrhea, unspecified

== ENCOUNTER → 2017-02-26 | Outpatient (REF) | payer OTHER ==
[2017-03-02 14:13] LABS: O+P EXAM Final report (.)
== END ==
LOC: M LAB REF 10:27
PROVIDERS: ATTEND Family Medicine
DX: R19.7 Diarrhea, unspecified (principal); R53.83 Other fatigue

== ENCOUNTER → 2017-03-03 | Outpatient (REF) | payer OTHER ==
[2017-03-05 14:14] LABS: O+P EXAM Final report (.)
== END ==
LOC: M LAB REF 10:11
PROVIDERS: ATTEND Family Medicine
DX: R19.7 Diarrhea, unspecified (principal); R53.83 Other fatigue

== ENCOUNTER 2017-03-27 07:25 | Emergency (ER) | payer OTHER ==
[~2017-03-27] VITALS: Ht 170.2 cm; Wt 77.2 kg
[~2017-03-27 07:25] MED LIST changes: -KEFL500C17 PO; -PRED20TA PO
[2017-03-27 08:07] LABS: BASO % 0.5 % (0.0-1.0); EOS # 0.2 K/mm3 (0.0-0.50); EOS % 1.9 % (0.0-3.0); LARGE UNSTAINED CELL # 0.2 K/mm3 (0.0-0.4); LARGE UNSTAINED CELL % 2.8 % (0.0-4.0); LYMPH # 1.7 K/mm3 (1.5-4.5); LYMPH % 19.1 % (24.0-44.0); MEAN CORPUSCULAR HEMOGLOBIN 33.9 pg (27.0-33.0); MEAN CORPUSCULAR HGB CONC 34.4 g/dl (32.0-36.5); MEAN CORPUSCULAR VOLUME 98.4 fl (80.0-96.0); MONO # 0.7 K/mm3 (0.0-0.8); MONO % 8.6 % (0.0-5.0); NEUTROPHILS # 5.1 K/mm3 (1.8-7.7); NEUTROPHILS % 67.1 % (36.0-66.0); PLATELET COUNT, AUTOMATED 223 k/mm3 (150-450); RED CELL DISTRIBUTION WIDTH 13.6 % (11.5-14.5); WHITE BLOOD COUNT 7.6 K/mm3 (4.0-10.0)
[2017-03-27 08:29] LABS: ANION GAP 6 MEQ/L (8-16); BLOOD UREA NITROGEN 13 MG/DL (7-18); CALCIUM LEVEL 8.2 MG/DL (8.5-10.1); CARBON DIOXIDE LEVEL 27 MEQ/L (21-32); CHLORIDE LEVEL 106 MEQ/L (98-107); CREATININE FOR GFR 1.03 MG/DL (0.70-1.30); GLOMERULAR FILTRATION RATE > 60.0 (>56); GLUCOSE, FASTING 102 MG/DL (70-105); POTASSIUM SERUM 4.1 MEQ/L (3.5-5.1); SODIUM LEVEL 139 MEQ/L (136-145); URIC ACID 5.6 MG/DL (3.5-7.2)
--- NOTE | 2017-03-27 08:32 | REP ---
Clinical: Pain and swelling. Technique: AP, lateral, bilateral oblique and sunrise views of the left knee. Findings: Moderate to significant anterior and prepatellar soft tissue swelling is appreciated. No definite effusion. Underlying moderate tricompartmental osteoarthritic degenerative changes include spurring/early osteophyte formation, subchondral sclerosis and joint space narrowing. No acute fracture or dislocation. Impression: Moderate degenerative changes. Anterior/prepatellar soft tissue swelling. No acute fracture or dislocation. Signed by Felix Gaines MD 03/27/2017 08:23 A
[2017-03-27 08:46] LABS: ERYTHROCYTE SEDIMENTATION RATE 19 mm/hr (0-20)
[2017-03-27] MEDS ORDERED: PRED20TA PO (08:55)
[2017-03-27] MEDS ORDERED: KEFL500C17 PO (08:57)
[2017-03-27 09:13] VITALS: BP 102/75
== END 2017-03-27 09:15 | disposition home or self-care (01) ==
LOC: M ED 07:25
DX: M70.42 Prepatellar bursitis, left knee (principal); F17.210 Nicotine dependence, cigarettes, uncomplicated; Z79.899 Other long term (current) drug therapy

== ENCOUNTER 2017-08-14 09:37 | Emergency (ER) | payer OTHER ==
[2017-08-14] MEDS: LIDOCAINE 2% MDV 20 ML VIAL SC (11:18)
[2017-08-14] MEDS: BUPIVACAINE HCL 0.5% 10 ML VIAL SC (11:18)
[2017-08-14] MEDS: ADACEL/BOOSTRIX VACCINE (DIPHTH/PERTUSS/ACELL/TETANUS)0.5ML SYR (90715) IM (12:01)
[2017-08-14] MEDS: cefTRIAXone SOD 500 MG VIAL (J0696) IM (12:02)
== END 2017-08-14 12:43 | disposition home or self-care (01) ==
LOC: M ED 09:37
DX: S62.662A Nondisplaced fracture of distal phalanx of right middle finger, initial encounter for closed fracture (principal); S61.212A Laceration without foreign body of right middle finger without damage to nail, initial encounter; W23.0XXA Caught, crushed, jammed, or pinched between moving objects, initial encounter; Y92.59 Other trade areas as the place of occurrence of the external cause; Z79.899 Other long term (current) drug therapy; Z79.82 Long term (current) use of aspirin; I10 Essential (primary) hypertension; J43.9 Emphysema, unspecified
CPT/HCPCS: 90715

== ENCOUNTER 2018-04-18 18:46 | Emergency (ER) | payer OTHER | END 2018-04-18 20:14 | disposition home or self-care (01) | LOC: M ED 18:46 | DX: S90.511A Abrasion, right ankle, initial encounter (principal); W22.8XXA Striking against or struck by other objects, initial encounter; Y92.019 Unspecified place in single-family (private) house as the place of occurrence of the external cause | CPT/HCPCS: 73630 ==

== ENCOUNTER → 2018-04-21 | Outpatient (REF) | payer OTHER ==
[2018-04-21 13:05] LABS: ALBUMIN/GLOBULIN RATIO 1.21 (1.00-1.93); ALKALINE PHOSPHATASE 82 U/L (45-117); ALT/SGPT 26 U/L (12-78); ANION GAP 7 MEQ/L (8-16); AST/SGOT 16 U/L (7-37); BILIRUBIN,TOTAL 0.4 MG/DL (0.2-1.0); BLOOD UREA NITROGEN 10 MG/DL (7-18); CALCIUM LEVEL 8.9 MG/DL (8.5-10.1); CARBON DIOXIDE LEVEL 28 MEQ/L (21-32); CHLORIDE LEVEL 105 MEQ/L (98-107); CHOLESTEROL LEVEL 170 MG/DL (<200); CHOLESTEROL RISK RATIO 4.047 (<5); CREATININE FOR GFR 0.94 MG/DL (0.70-1.30); GLOMERULAR FILTRATION RATE > 60.0 (>56); GLUCOSE, FASTING 89 MG/DL (70-100); HDL CHOLESTEROL 42 MG/DL (>40); LDL CHOLESTEROL 105 MG/DL (<100); NON-HDL-C 128 MG/DL; POTASSIUM SERUM 4.3 MEQ/L (3.5-5.1); SODIUM LEVEL 140 MEQ/L (136-145); TOTAL PROTEIN 7.3 GM/DL (6.4-8.2); TRIGLYCERIDES LEVEL 116 MG/DL (<150)
== END ==
LOC: M LABDRAW1 12:04
DX: E78.2 Mixed hyperlipidemia (principal); I10 Essential (primary) hypertension; E55.9 Vitamin D deficiency, unspecified

== ENCOUNTER → 2018-05-06 | Outpatient (CLI) | payer OTHER | LOC: M SMT 09:45 | DX: S93.601A Unspecified sprain of right foot, initial encounter (principal); X58.XXXA Exposure to other specified factors, initial encounter; Y92.9 Unspecified place or not applicable; Y93.9 Activity, unspecified; Y99.9 Unspecified external cause status | CPT/HCPCS: 73630 ==

== ENCOUNTER 2019-02-14 11:23 | Emergency (ER) | payer OTHER ==
[~2019-02-14] VITALS: Ht 172.7 cm; Wt 75.0 kg
[~2019-02-14 11:23] MED LIST changes: -ASPI81CH32 PO; +ASPI81CH33 PO; -DRIS50002 PO; +DRIS50003 PO; -GABA-282 PO; +GABA-843 PO; +KEFL500C17 PO; +NAPR-885 PO; +PRED20TA PO; +TYLE325C PO
--- NOTE | 2019-02-14 12:08 | REP ---
RIGHT SECOND TOE: Four views right second toe performed. There is an oblique fracture of the proximal phalanx, which is slightly displaced. No other acute fracture or dislocation is seen. Electronically Signed by Akira Hassan MD 02/14/2019 05:21 P
[2019-02-14 13:28] VITALS: BP 144/89
== END 2019-02-14 13:29 | disposition home or self-care (01) ==
LOC: M ED 11:23
DX: S92.511B Displaced fracture of proximal phalanx of right lesser toe(s), initial encounter for open fracture (principal); W22.09XA Striking against other stationary object, initial encounter; Y92.39 Other specified sports and athletic area as the place of occurrence of the external cause; J44.9 Chronic obstructive pulmonary disease, unspecified; M79.9 Soft tissue disorder, unspecified; F17.200 Nicotine dependence, unspecified, uncomplicated; Z79.899 Other long term (current) drug therapy; Z79.82 Long term (current) use of aspirin

== ENCOUNTER → 2019-03-07 | Outpatient (REF) | payer OTHER ==
[2019-03-07 13:00] LABS: ALBUMIN 3.7 GM/DL (3.2-5.2); ALT/SGPT 24 U/L (12-78); BILIRUBIN,TOTAL 0.5 MG/DL (0.2-1.0); BLOOD UREA NITROGEN 14 MG/DL (7-18); CALCIUM LEVEL 8.8 MG/DL (8.5-10.1); CARBON DIOXIDE LEVEL 28 MEQ/L (21-32); CHLORIDE LEVEL 106 MEQ/L (98-107); CHOLESTEROL LEVEL 145 MG/DL (<200); CHOLESTEROL RISK RATIO 3.717 (<5); CREATININE FOR GFR 1.07 MG/DL (0.70-1.30); GLOMERULAR FILTRATION RATE > 60.0 (>56); GLUCOSE, FASTING 86 MG/DL (70-100); HDL CHOLESTEROL 39 MG/DL (>40); LDL CHOLESTEROL 82 MG/DL (<100); NON-HDL-C 106 MG/DL; POTASSIUM SERUM 4.4 MEQ/L (3.5-5.1); SODIUM LEVEL 140 MEQ/L (136-145); TOTAL PROTEIN 6.9 GM/DL (6.4-8.2); TRIGLYCERIDES LEVEL 121 MG/DL (<150)
[2019-03-07 13:08] LABS: TOTAL 25(OH) VITAMIN D 32.4 NG/ML (30.0-100.0)
== END ==
LOC: M LABDRAW1 10:54
PROVIDERS: ATTEND Physician Assistant
DX: E78.2 Mixed hyperlipidemia (principal); I10 Essential (primary) hypertension; E55.9 Vitamin D deficiency, unspecified

== ENCOUNTER → 2019-03-22 | Outpatient (CLI) | payer OTHER ==
--- NOTE | 2019-03-22 12:14 | REP ---
Low dose lung screening CT Indication: Nicotine dependent. Comparison: Low dose lung screening CT of 06/16/[address] without contrast of 10/09/2016. Technique: Axial noncontrast low-dose lung and cancer screening technique imaged and provided in lung windows only. Findings: There is upper lobe predominant paraseptal and centrilobular emphysema with large left apical bulla, measuring up to 5 cm in diameter, similar to prior. There is no pneumothorax. There is no suspicious pulmonary nodule or mass. There are a few scattered sub 5 mm calcified granuloma, unchanged. There is no pleural effusion or thickening. Note is again made of atherosclerotic calcification of the thoracic aorta and coronary arteries. There are degenerative changes of the thoracic spine. Impression: Lung-RADS category 1S. No suspicious pulmonary nodule. Emphysema. Continue annual screening with low-dose CT in 12 months. Electronically Signed by Flex Dumont MD 03/22/2019 11:50 A
== END ==
LOC: M RAD 07:48
PROVIDERS: ATTEND Internal Medicine Pulmonary Disease
DX: F17.218 Nicotine dependence, cigarettes, with other nicotine-induced disorders (principal); Z12.2 Encounter for screening for malignant neoplasm of respiratory organs

== ENCOUNTER → 2019-06-12 | Outpatient (REF) | payer OTHER | LOC: M LAB REF 16:42 | PROVIDERS: ATTEND Family Medicine | DX: R50.9 Fever, unspecified (principal) ==

== ENCOUNTER → 2019-07-04 | Outpatient (REF) | payer OTHER ==
[~2019-07-04] MED LIST changes: -SIMV40TA2 PO; +SIMV40TA20 PO
== END ==
LOC: M LAB REF 13:01
PROVIDERS: ATTEND Physician Assistant Medical
DX: N39.0 Urinary tract infection, site not specified (principal)

== ENCOUNTER → 2019-07-31 | Outpatient (REF) | payer OTHER | LOC: M LAB REF 13:10 | PROVIDERS: ATTEND Physician Assistant Medical | DX: N39.0 Urinary tract infection, site not specified (principal) ==

== ENCOUNTER 2019-08-10 11:04 | Emergency (ER) | payer OTHER ==
[~2019-08-10] VITALS: Ht 172.7 cm; Wt 77.8 kg
[~2019-08-10 11:04] MED LIST changes: -BUPR300T34 PO; +BUPR300T92 PO
[2019-08-10] MEDS ORDERED: TIMO0.5S29 (11:13)
[2019-08-10] MEDS ORDERED: LATA0.0015 (11:13)
[2019-08-10] MEDS ORDERED: LEVO500T3 (11:13)
[2019-08-10 11:48] LABS: BASO % 0.4 % (0.0-1.0); EOS # 0.2 10^3/uL (0.0-0.5); EOS % 2.4 % (0.0-3.0); HEMATOCRIT 41.4 % (42.0-52.0); HEMOGLOBIN 13.6 g/dl (13.5-17.5); LYMPH # 2.2 10^3/uL (1.5-5.0); LYMPH % 30.5 % (24.0-44.0); MEAN CORPUSCULAR HEMOGLOBIN 31.9 pg (27.0-33.0); MEAN CORPUSCULAR HGB CONC 32.9 g/dl (32.0-36.5); MEAN CORPUSCULAR VOLUME 97.2 fl (80.0-96.0); MONO # 0.7 10^3/uL (0.0-0.8); MONO % 10.2 % (0.0-5.0); NEUTROPHILS % 56.2 % (36.0-66.0); PLATELET COUNT, AUTOMATED 303 10^3/uL (150-450); RED BLOOD COUNT 4.26 10^6/uL (4.30-6.10); WHITE BLOOD COUNT 7.1 10^3/uL (4.0-10.0)
--- NOTE | 2019-08-10 11:52 | REP ---
INDICATION: This was left arm weakness, question CVA PROCEDURE: CT head without contrast COMPARISON STUDIES: No prior similar study FINDINGS: There is a small hypodensity toward the right convexity, in proximity to the right central sulcus. No mass effect or midline shift. No hemorrhage. Ventricles, cisterns and sulci within normal limits. Paranasal sinuses and mastoid air cells are clear. IMPRESSION: Small hypodensity on the right toward the convexity, in the vicinity of the right central sulcus, given the patient's symptoms, is consistent with subacute infarct. Dr. Webb aware at the time of interpretation. Electronically Signed by Bebeto Morris MD 08/10/2019 11:44 A
--- NOTE | 2019-08-10 11:56 | REP ---
Portable chest x-ray: Single view. History: CVA. Comparison chest x-ray: March 11, 2012. Findings: Monitoring electrodes are present. Lungs are well inflated and clear. The pleural angles are sharp. Heart size is normal. The thoracic aorta is somewhat tortuous. Impression: No active disease. Electronically Signed by Bobby Strauss MD 08/10/2019 11:47 A
[2019-08-10 12:00] LABS: INR 1.09; PROTHROMBIN TIME 13.8 SECONDS (11.8-14.0)
[2019-08-10] MEDS ORDERED: ASPIRIN 81 MG CHEW TABLET PO ONE (12:00)
[2019-08-10] MEDS ORDERED: NS 1,000 ML IV ONE (12:00)
[2019-08-10 12:01] LABS: PARTIAL THROMBOPLASTIN TIME 34.1 SECONDS (25.0-38.4)
[2019-08-10 12:13] LABS: CK-MB VALUE MASS 1.1 NG/ML (<3.6); CPK CREATINE PHOSPHOKINASE 82 U/L (39-308); MB/CK RELATIVE INDEX 1.34 (< OR =4); TROPONIN I < 0.02 NG/ML (< 0.10)
[2019-08-10 12:18] VITALS: BP 127/86
--- NOTE | 2019-08-10 21:12 | ECGEPIP ---
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
== END 2019-08-10 12:20 | disposition short-term general hospital (02) ==
LOC: M ED 11:04
DX: I63.9 Cerebral infarction, unspecified (principal); I10 Essential (primary) hypertension; E78.5 Hyperlipidemia, unspecified; F44.9 Dissociative and conversion disorder, unspecified; M47.9 Spondylosis, unspecified; F17.200 Nicotine dependence, unspecified, uncomplicated; Z79.899 Other long term (current) drug therapy; Z79.82 Long term (current) use of aspirin; Z79.2 Long term (current) use of antibiotics

== ENCOUNTER → 2019-08-29 | Outpatient (CLI) | payer OTHER ==
[~2019-08-29] MED LIST changes: +LATA0.0015; +LEVO500T3; +TIMO0.5S29
--- NOTE | 2019-08-30 04:56 | REP ---
Clinical: Urinary tract infection. Technique: Real time sagastume scale and color evaluation of the bladder using curved array transducer. Findings: Bladder is normal in appearance without wall thickening or mass lesion. Bilateral ureteral jets are identified. Prevoid bladder measures 395 ml. Postvoid bladder measures 216 ml. Postvoid residual equals 55%. Impression: Abnormal, excessive postvoid residual volume. Electronically Signed by Felix Gaines MD 08/30/2019 04:48 A
--- NOTE | 2019-08-30 05:03 | REP ---
Clinical: Urinary tract infection. Technique: Real time sagastume scale ultrasound examination using curved array transducer. Findings: The bilateral kidneys are normal in contour, size, echogenicity and reniform shape without hydronephrosis, nephrolithiasis, or renal mass lesion. Right kidney measures 10.1 x 5.6 x 5.3 cm. Left kidney measures 11.2 x 5.7 x 5.5 cm and includes 1.9 cm exophytic mid pole simple cyst. Impression: 1.9 cm simple left renal cyst. Electronically Signed by Felix Gaines MD 08/30/2019 04:55 A
== END ==
LOC: M RAD 11:01
PROVIDERS: ATTEND Nurse Practitioner Family
DX: N39.0 Urinary tract infection, site not specified (principal)

== ENCOUNTER 2019-09-09 05:07 | Observation (INO) | payer OTHER ==
[~2019-09-09] VITALS: Ht 172.7 cm; Wt 75.8 kg
[~2019-09-09 05:07] MED LIST changes: -LATA0.0015; +LATA0.0015 OU; -TIMO0.5S29; +TIMO0.5S29 OU
--- NOTE | 2019-09-09 05:49 | ECGEPIP ---
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
[2019-09-09 05:54] LABS: BASO % 0.3 % (0.0-1.0); EOS # 0.1 10^3/uL (0.0-0.5); EOS % 0.7 % (0.0-3.0); HEMATOCRIT 37.9 % (42.0-52.0); HEMOGLOBIN 12.8 g/dl (13.5-17.5); LYMPH # 1.7 10^3/uL (1.5-5.0); LYMPH % 17.5 % (24.0-44.0); MEAN CORPUSCULAR HGB CONC 33.8 g/dl (32.0-36.5); MEAN CORPUSCULAR VOLUME 94.8 fl (80.0-96.0); MONO # 1.3 10^3/uL (0.0-0.8); MONO % 13.2 % (0.0-5.0); NEUTROPHILS # 6.4 10^3/uL (1.5-8.5); PLATELET COUNT, AUTOMATED 239 10^3/uL (150-450); WHITE BLOOD COUNT 9.5 10^3/uL (4.0-10.0)
[2019-09-09 06:07] LABS: INR 1.17; PROTHROMBIN TIME 14.7 SECONDS (11.8-14.0)
[2019-09-09] MEDS ORDERED: KETOROLAC 30 MG/ML VIAL (J1885) IV ONE (06:15)
[2019-09-09 06:18] LABS: ALBUMIN 3.2 GM/DL (3.2-5.2); ALT/SGPT 21 U/L (12-78); BILIRUBIN,DIRECT 0.2 MG/DL (0.0-0.2); BILIRUBIN,TOTAL 0.8 MG/DL (0.2-1.0); BLOOD UREA NITROGEN 10 MG/DL (7-18); CALCIUM LEVEL 8.3 MG/DL (8.5-10.1); CARBON DIOXIDE LEVEL 24 MEQ/L (21-32); CHLORIDE LEVEL 103 MEQ/L (98-107); CK-MB VALUE MASS < 1.0 NG/ML (<3.6); CPK CREATINE PHOSPHOKINASE 52 U/L (39-308); GLOMERULAR FILTRATION RATE > 60.0 (>56); GLUCOSE, FASTING 101 MG/DL (70-100); LIPASE 51 U/L (73-393); MB/CK RELATIVE INDEX 1.92 (< OR =4); SODIUM LEVEL 136 MEQ/L (136-145); TOTAL PROTEIN 7.1 GM/DL (6.4-8.2); TROPONIN I < 0.02 NG/ML (< 0.10)
[2019-09-09] MEDS ORDERED: ISOVUE-370 76% 100ML VIAL (Q9967) As Ordered ONE (06:19)
--- NOTE | 2019-09-09 07:09 | REPVR ---
PROCEDURE INFORMATION: Exam: CT Abdomen And Pelvis With Contrast Exam date and time: 09/09/2019 6:01 AM Age: 58 years old Clinical indication: Abdominal pain; Localized; Left lower quadrant (llq); Additional info: Llq abd pain TECHNIQUE: Imaging protocol: Computed tomography of the abdomen and pelvis with intravenous contrast. Radiation optimization: All CT scans at this facility use at least one of these dose optimization techniques: automated exposure control; mA and/or kV adjustment per patient size (includes targeted exams where dose is matched to clinical indication); or iterative reconstruction. Contrast material: ISO; Contrast volume: 100 ml; Contrast route: AC; COMPARISON: BLADDER (LIMITED PELVIC) US 08/29/2019 11:38 AM FINDINGS: Lungs: There is evidence of emphysema. There is patchy peripheral consolidation and mild ground-glass opacity in the visualized lung bases. Liver: There are no focal liver lesions present. Gallbladder and bile ducts: The gallbladder appears partially contracted. No stones are identified. No biliary ductal dilation is seen. Pancreas: The pancreas is normal with no ductal dilation. Spleen: There is wedge-shaped area of low attenuation in the spleen extending to the capsule, consistent with a splenic infarct. Adrenals: The adrenal glands are diffusely thickened but without discrete nodules. Kidneys and ureters: There is a homogeneous low-attenuation 1.9 cm cyst in the left kidney. No follow-up needed.There are no ureteral stones or hydronephrosis. Stomach and bowel: Moderate diverticulosis is present in the colon, most prominent in the sigmoid colon.There is no dilation or thickening of the colon. There is fluid in the colon with air-fluid levels seen as far distally as the mid left colon which is abnormal but nonspecific. The small bowel appears unremarkable. Appendix: A normal appendix is identified. Intraperitoneal space: There is no evidence of free intraperitoneal or pelvic fluid. There is no free intraperitoneal air. Vasculature: The visualized vasculature demonstrates moderate atherosclerotic disease. No aortic aneurysm. Lymph nodes: No lymphadenopathy is seen. No lymphadenopathy is seen. Bladder: The bladder wall is thickened posteriorly and at the bladder base and several small diverticula are seen posteriorly, as identified on the prior ultrasound. No bladder stones identified. Reproductive: The prostate gland demonstrates mild nonspecific enlargement. The seminal vesicles are normal. Bones/joints: Degenerative endplate changes are seen at multiple levels in the visualized spine. There is facet arthropathy in the lumbar spine. Soft tissues: There is a small periumbilical hernia containing fat. IMPRESSION: 1. Wedge-shaped low attenuation in the spleen, consistent with a splenic infarct. 2. Thickening of the bladder wall, most prominent posteriorly and inferiorly, and multiple small bladder diverticula posteriorly at the bladder base, as seen on the recent ultrasound. 3. Diverticulosis without evidence of acute diverticulitis. 4. Fluid levels in the colon as far distally as the left colon which is abnormal but nonspecific. No evidence of bowel obstruction. No significant bowel wall thickening identified. Electronically signed by: Yumiko Shin On 09/09/2019 07:09:33 AM
[2019-09-09] MEDS ORDERED: MIRA1POW3 PO (07:28)
[2019-09-09] MEDS ORDERED: CALC600T57 PO (07:28)
[2019-09-09] MEDS ORDERED: BAYE325T12 PO (07:28)
[2019-09-09] MEDS ORDERED: CARV6.25 PO (07:28)
[2019-09-09] MEDS ORDERED: ATOR40TA75 PO (07:28)
[2019-09-09] MEDS ORDERED: CARV12.5 PO (08:15)
[2019-09-09] MEDS ORDERED: LISI-542 PO (08:15)
[2019-09-09] MEDS ORDERED: MULTTAB61 PO (08:15)
[2019-09-09] MEDS ORDERED: NICO14DI31 TD (08:15)
[2019-09-09] MEDS: lisinopriL 5 MG TAB PO SCH (09:00)
[2019-09-09] MEDS ORDERED: NICOTINE 14 MG/24 HR TRANSDERMAL TD PRN (10:30)
[2019-09-09] MEDS ORDERED: MOM 30ML SUSPENSION UDC PO PRN (10:30)
[2019-09-09] MEDS ORDERED: MAALOX 30 ML SUSP *UDC PO PRN (10:30)
[2019-09-09] MEDS ORDERED: MIRALAX *UNIT DOSE* 17GM PACKET PO PRN (10:30)
[2019-09-09] MEDS ORDERED: ACETAMINOPHEN TAB 650MG DOSE (2X325MG) PO PRN (10:30)
[2019-09-09] MEDS ORDERED: oxyCODONE 5MG TAB PO PRN ×2 (10:30)
--- NOTE | 2019-09-09 10:35 | HPEPDOC ---
General Date of Admission 09/09/19 Date of Service: Sep 09, 2019 Chief Complaint The patient is a 58-year-old male admitted with a reason for visit of Abdominal Pain. Source: Patient Exam Limitations: No limitations Timing/Duration: Other (4 months) Severity: Moderate Associated Symptoms: Other (abdominal pain) History of Present Illness This is 58 years old white male with past medical history of glaucoma, hypertension, CAD, lumbar radiculopathy was recently admitted to [facility] with CVA and was discharged on baby aspirin. As car and the patient, he is been having abdominal pain starts from right side settles to left side on and off since last 4 months, but the patient this time was worse. We decided come to ER. Patient denies fever, nausea, vomiting, diarrhea, chest pain, shortness of breath, etc. In ED, CT of the abdomen and pelvis done which showed a await s haped low-attenuation the spleen, possibly splenic infarct. Patient being admitted for observation and pain management. Home Medications Scheduled Aspirin (Aspirin) 325 Mg Tablet, 325 MG PO DAILY, (Reported) Atorvastatin Calcium (Atorvastatin Calcium) 40 Mg Tablet, 40 MG PO QHS, (Reported) Bupropion HCl (Bupropion Xl) 300 Mg Tab, 300 MG PO DAILY, (Reported) Calcium Carbonate/Vitamin D3 (Calcium 600-Vit D3 200 Tablet) 1 Each Tablet, 1 TAB PO BID, (Reported) Carvedilol (Carvedilol) 12.5 Mg Tablet, 6.25 MG PO BID, (Reported) Gabapentin (Gabapentin) 300 Mg Cap, 300 MG PO TID, (Reported) Latanoprost/Pf (Latanoprost 0.005% Eye Drop) 7.5 Ml Drops, 1 DROP OU QHS, (Reported) Lisinopril (Lisinopril) 5 Mg Tablet, 5 MG PO DAILY, (Reported) Multivitamin (Multivitamins) 1 Each Tablet, 1 TAB PO DAILY, (Reported) Timolol Maleate (Timolol Maleate) 0.5% 5ML Drops, 1 DROP OU DAILY, (Reported) Scheduled PRN Nicotine (Nicotine Patch) 14 Mg/24 Hr Patch.td24, 14 MG TD DAILY PRN for SMOKING CESSATION, (Reported) Polyethylene Glycol 3350 (Miralax) 17 Gm Powd.pack, 17 GM PO BID PRN for CONSTIPATION, (Reported) Allergies Coded Allergies: No Known Allergies (Unverified , 02/14/19) Past Medical History Medical History Glaucoma, hypertension, CAD, CVA, lumbar radiculopathies Surgical History Angioplasty with stent (of Coppertone or repair, right shoulder repair Family History Significant Family History: No pertinent family hx Social History * Smoker: former Smoker, quit less than 1 year Alcohol: Denies Drugs: denies A-FIB/CHADSVASC A-FIB History Current/History of A-Fib/PAF?: No Review of Systems Constitutional: Denies: Chills, Fever, Malaise, Night Sweats, Weakness, Fatigue, Weight Loss, Lethargy, Other Eyes: Denies: Pain, Vision change, Conjunctivae inflammation, Eyelid inflammation, Redness, Other ENT: Denies: Head Aches, Ear Pain, Dysphagia, Sinus Congestion, Post Nasal Drip, Sore Throat, Epistaxis, Other Symptoms Skin: Denies: Rash, Lesions, Jaundice, Bruising, Itching, Dry, Breakdown, Nail Changes, Other Pulmonary: Denies: Dyspnea, Cough, Pleuritic Chest Pain, Other Symptoms Cardiovascular: Denies: Chest Pain, Palpitations, Orthopnea, Paroxysmal Noc. Dyspnea, Edema, Lt Headedness, Other Symptoms Gastrointestinal: Reports: Abdominal Pain Genitourinary: Denies: Dysuria, Frequency, Incontinence, Hematuria, Retention, Other Symptoms Hematologic: Denies: Bruising, Bleeding Excessively, Petecchia, Purpura, Enlarged Lymph Nodes, Other Hematologic Endocrine: Denies: Polydipsia, Polyphagia, Polyuria, Heat Intolerance, Cold Intolerance, Other Endocrine Sx Musculoskeletal: Denies: Neck Pain, Back Pain, Shoulder Pain, Arm Pain, Hand Pain, Leg Pain, Foot Pain, Joint Pain, Muscle Pain, Spasms, Other Symptoms Neurological: Denies: Weakness, Numbness, Incoordination, Change in speech, Confusion, Seizures, Other Symptoms Psych: Denies: Mood Normal, Anxiety, Depression, Memory Issues, Thoughts of Self Harm, Anger, Thoughts of Harming Other, Other Psych Physical Examination General Exam: Positive: Alert, Cooperative Eye Exam: Positive: PERRLA, Conjunctiva & lids normal ENT Exam: Positive: Atraumatic Neck Exam: Positive: Supple, thyromegaly Chest Exam: Positive: Clear to auscultation, Normal air movement Heart Exam: Positive: Rate Normal, Normal S1, Normal S2 Abdomen Exam: Positive: Normal bowel sounds, Soft, Tenderness (. Mild tenderness left upper quadrant on deep palpation, but his spleen not palpable) Extremity Exam: Positive: Normal pulses Skin Exam: Positive: Nl turgor and temperature Neuro Exam: Positive: Strength at 5/5 X4 ext, Sensation Intact, Cranial Nerves 3-12 NL Psych Exam: Positive: Mental status NL, Oriented x 3 Vital Signs Vital Signs Date Time Temp Pulse Resp B/P (MAP) Pulse Ox O2 Delivery O2 Flow Rate FiO2 09/09/19 08:15 79 16 102/65 (77) 95 Room Air 09/09/19 05:10 97.8 Laboratory Data Labs 24H Laboratory Tests 2 09/09/19 05:33: Immature Granulocyte % (Auto) 0.3, Neutrophils (%) (Auto) 68.0H, Lymphocytes (%) (Auto) 17.5L, Monocytes (%) (Auto) 13.2H, Eosinophils (%) (Auto) 0.7, Basophils (%) (Auto) 0.3, Neutrophils # (Auto) 6.4, Lymphocytes # (Auto) 1.7, Monocytes # (Auto) 1.3H, Eosinophils # (Auto) 0.1, Basophils # (Auto) 0.0, Nucleated Red Blood Cells % (auto) 0.0, Prothrombin Time 14.7H, Prothromb Time International Ratio 1.17, Anion Gap 9, Glomerular Filtration Rate > 60.0, Calcium Level 8.3L, Total Bilirubin 0.8, Direct Bilirubin 0.2, Aspartate Amino Transf (AST/SGOT) 20, Alanine Aminotransferase (ALT/SGPT) 21, Alkaline Phosphatase 86, Total Creatine Kinase 52, Creatine Kinase MB < 1.0, Creatine Kinase MB Relative Index 1.92, Troponin I < 0.02, Total Protein 7.1, Albumin 3.2, Albumin/Globulin Ratio 0.82L, Lipase 51L 09/09/19 07:37: Urine Color YELLOW, Urine Appearance CLEAR, Urine pH 6.0, Urine Specific [place] >1.060H, Urine Protein NEGATIVE, Urine Glucose (UA) NEGATIVE, Urine Ketones TRACEH, Urine Blood NEGATIVE, Urine Nitrite NEGATIVE, Urine Bilirubin NEGATIVE, Urine Urobilinogen 0.2, Urine Leukocyte Esterase NEGATIVE, Urine WBC (Auto) 1, Urine RBC (Auto) 2, Urine Hyaline Casts (Auto) 0, Urine Bacteria (Auto) NEGATIVE, Urine Squamous Epithelial Cells 0, Urine Mucus (Auto) SMALL, Urine Sperm (Auto) CBC/BMP Laboratory Tests 09/09/19 05:33 Problems (1) Splenic infarction Status: Acute Problem Text: 58 years old white male, recently was admitted to [facility] with the diagnosis of CVA and he was started on baby aspirin. Patient has been complaining of abdominal pain since last 4 months and today it was worse. He decided come to ER. CT of the abdomen and pelvis shows wedge-shaped low attenuation spleen, possibly splenic infarct and thickening of the urinary bladder wall with our diverticulosis of the bladder. Patient's vital signs are stable. Blood pressure 102/65, heart rate of 79, respiratory rate 16, pulse ox 94% on room air. EKG showed normal sinus rhythm, incomplete right bundle branch block. CBC, CMP are normal. Lipase 51. UA is negative Admit patient to [facility] with telemetry for further observation Aspirin was increased to 325 mg by mouth daily recently and will add Plavix 75 mg by mouth daily Pain management with oxycodone as per orders Continue all home meds Repeat labs in a.m. DVT prophylaxis with Lovenox Diet 2 g sodium Activity as tolerated (2) HTN (hypertension) Status: Chronic Problem Text: Continue home meds (3) Hyperlipidemia Problem Text: Attending home meds (4) Glaucoma Status: Chronic Problem Text: Opinion home meds Plan / VTE VTE Prophylaxis Ordered?: Yes TYRELL MCINTOSH MD Sep 09, 2019 10:35
[2019-09-09] MEDS ORDERED: MULTIVITAMINS/MINERALS THERAP 1 TAB PO ONE (11:00)
[2019-09-09 11:36] VITALS: BP 94/65
[2019-09-09] MEDS: ASPIRIN 325 MG TAB PO SCH (12:57)
[2019-09-09] MEDS: buPROPion **XL** TABLET 150MG (WELLBUTRIN XL) PO SCH (12:58)
[2019-09-09] MEDS: CLOPIDOGREL 75 MG TAB PO SCH (12:59)
[2019-09-09] MEDS: ENOXAPARIN 40 MG/0.4 ML SYRINGE (J1650) SC SCH (13:01)
[2019-09-09] MEDS: CARVedilol 6.25 MG TAB PO SCH ×2 (13:01→21:08)
[2019-09-09] MEDS: GABAPENTIN 300 MG CAP PO SCH ×2 (16:47→21:07)
[2019-09-09] MEDS: TIMOLOL MALEATE 0.5% OPHTH SOLN 5 ML OU SCH (16:47)
[2019-09-09] MEDS ORDERED: ATORVASTATIN 20 MG TAB PO SCH (21:00)
[2019-09-09] MEDS ORDERED: LATANOPROST 0.005% OPHTH SOLN 2.5 ML OU SCH (21:00)
[2019-09-09 22:00] VITALS: BP 102/67
[2019-09-10 06:00] VITALS: BP 98/67
[2019-09-10 07:13] LABS: HEMATOCRIT 36.5 % (42.0-52.0); HEMOGLOBIN 12.4 g/dl (13.5-17.5); MEAN CORPUSCULAR HEMOGLOBIN 32.3 pg (27.0-33.0); MEAN CORPUSCULAR VOLUME 95.1 fl (80.0-96.0); PLATELET COUNT, AUTOMATED 246 10^3/uL (150-450); RED BLOOD COUNT 3.84 10^6/uL (4.30-6.10); WHITE BLOOD COUNT 9.5 10^3/uL (4.0-10.0)
[2019-09-10] MEDS: ENOXAPARIN 40 MG/0.4 ML SYRINGE (J1650) SC SCH (07:36)
[2019-09-10 07:43] LABS: ALT/SGPT 22 U/L (12-78); BILIRUBIN,TOTAL 0.7 MG/DL (0.2-1.0); BLOOD UREA NITROGEN 10 MG/DL (7-18); CALCIUM LEVEL 8.3 MG/DL (8.5-10.1); CARBON DIOXIDE LEVEL 27 MEQ/L (21-32); CHLORIDE LEVEL 100 MEQ/L (98-107); CREATININE FOR GFR 1.02 MG/DL (0.70-1.30); GLOMERULAR FILTRATION RATE > 60.0 (>56); GLUCOSE, FASTING 100 MG/DL (70-100); MAGNESIUM LEVEL 2.5 MG/DL (1.8-2.4); POTASSIUM SERUM 3.8 MEQ/L (3.5-5.1); SODIUM LEVEL 134 MEQ/L (136-145); TOTAL PROTEIN 7.8 GM/DL (6.4-8.2)
[2019-09-10] MEDS: lisinopriL 5 MG TAB PO SCH (09:00)
[2019-09-10 09:06] VITALS: BP 99/61
[2019-09-10] MEDS: CARVedilol 6.25 MG TAB PO SCH (09:06)
[2019-09-10] MEDS: ASPIRIN 325 MG TAB PO SCH (09:07)
[2019-09-10] MEDS: GABAPENTIN 300 MG CAP PO SCH (09:07)
[2019-09-10] MEDS: CLOPIDOGREL 75 MG TAB PO SCH (09:08)
[2019-09-10] MEDS: buPROPion **XL** TABLET 150MG (WELLBUTRIN XL) PO SCH (09:08)
[2019-09-10] MEDS: TIMOLOL MALEATE 0.5% OPHTH SOLN 5 ML OU SCH (09:09)
[2019-09-10] MEDS ORDERED: CLOP75TA2 PO (09:49)
[2019-09-10] MEDS ORDERED: OXYC-517 PO (09:49)
--- NOTE | 2019-09-10 11:18 | DS.PDOC ---
Discharge Summary General Date of Admission Sep 09, 2019 at 05:08 Date of Discharge 09/10/19 Discharge Summary PROCEDURES PERFORMED DURING STAY: None. ADMITTING DIAGNOSES: 1. Splenic infarction, history of CVA. DISCHARGE DIAGNOSES: 1. Splenic infarction, history of CVA, history of nicotine abuse, CAD, hy pertension, lumbar radiculopathy. COMPLICATIONS/CHIEF COMPLAINT: Splenic Infarction. HISTORY OF PRESENT ILLNESS: This is 58 years old white male with past medical history of glaucoma, hypertension, CAD, lumbar radiculopathy was recently admitted to [facility] with CVA and was discharged on baby aspirin. As car and the patient, he is been having abdominal pain starts from right side settles to left side on and off since last 4 months, but the patient this time was worse. We decided come to ER. Patient denies fever, nausea, vomiting, diarrhea, chest pain, shortness of breath, etc. In ED, CT of the abdomen and pelvis done which showed a await shaped low-attenuation the spleen, possibly splenic infarct. Patient being admitted for observation and pain management.. HOSPITAL COURSE: 58 years old white male, recently was admitted to [facility] with the diagnosis of CVA and he was started on baby aspirin. Patient has been complaining of abdominal pain since last 4 months and today it was worse. He decided come to ER. CT of the abdomen and pelvis shows wedge-shaped low attenuation spleen, possibly splenic infarct and thickening of the urinary bladder wall with our diverticulosis of the bladder. Patient's vital signs are stable. Blood pressure 102/65, heart rate of 79, respiratory rate 16, pulse ox 94% on room air. EKG showed normal sinus rhythm, incomplete right bundle branch block. CBC, CMP are normal. Lipase 51. UA is negative Admit patient to [facility] with telemetry for further observation Aspirin was increased to 325 mg by mouth daily recently and will add Plavix 75 mg by mouth daily Patient pain responded very well to oxycodone I discussed this case with Dr. Romero from surgery as per Dr. Gutierrez. Patient does not require any surgical intervention or follow-up . Patient is asymptomatic on physical examination there is no tenderness at the right upper quadrant. He will be discharged home on by mouth aspirin and Plavix has been added He will follow with his primary care physician in one week has been advised to come back to ER immediately if the symptoms recur or get worse . DISCHARGE MEDICATIONS: Please see below. ALLERGIES: Please see below. PHYSICAL EXAMINATION ON DISCHARGE: VITAL SIGNS: Please see below. GENERAL: Within normal limits HEENT: PERRLA. Extraocular muscles intact NECK: Supple. Negative JVD, negative lymphadenopathy CARDIOVASCULAR EXAMINATION: S1, S2, regular RESPIRATORY EXAMINATION: Clear to A&P ABDOMINAL EXAMINATION: , Soft, nontender. Pulses present. No organomegaly EXTREMITIES: No clubbing, cyanosis, edema SKIN: Normal NEUROLOGICAL EXAMINATION: . No focal motor sensory deficit PSYCHIATRIC EXAMINATION: Normal LABORATORY DATA: Please see below. IMAGING: CT abdomen, pelvis:1. Wedge-shaped low attenuation in the spleen, consistent with a splenic infarct. 2. Thickening of the bladder wall, most prominent posteriorly and inferiorly, and multiple small bladder diverticula posteriorly at the bladder base, as seen on the recent ultrasound. 3. Diverticulosis without evidence of acute diverticulitis. 4. Fluid levels in the colon as far distally as the left colon which is abnormal but nonspecific. No evidence of bowel obstruction. No significant bowel wall thickening identified. PROGNOSIS: Good ACTIVITY: As tolerated. DIET: As tolerated DISCHARGE PLAN: Follow with PCP in one week DISPOSITION: . Home DISCHARGE INSTRUCTIONS: 1. . As per discharge instructions ITEMS TO FOLLOWUP ON ON OUTPATIENT: 1. Follow PCP in one week. DISCHARGE CONDITION: Stable. TIME SPENT ON DISCHARGE: 25 minutes. Vital Signs/I&Os Vital Signs Date Time Temp Pulse Resp B/P (MAP) Pulse Ox O2 Delivery O2 Flow Rate FiO2 09/10/19 09:06 89 99/61 09/10/19 06:00 99.0 18 96 Room Air I&O- Last 24 Hours up to 6 AM 09/10/19 06:00 Intake Total 1770 ml Output Total 0 ml Balance 1770 ml Laboratory Data Labs 24H Laboratory Tests 2 09/10/19 06:59: Nucleated Red Blood Cells % (auto) 0.0, Anion Gap 7L, Glomerular Filtration Rate > 60.0, Calcium Level 8.3L, Magnesium Level 2.5H, Total Bilirubin 0.7, Aspartate Amino Transf (AST/SGOT) 14, Alanine Aminotransferase (ALT/SGPT) 22, Alkaline Elizabeth sphatase 91, Total Protein 7.8, Albumin 3.0L, Albumin/Globulin Ratio 0.63L CBC/BMP Laboratory Tests 09/10/19 06:59 Discharge Medications Scheduled Aspirin (Aspirin) 325 Mg Tablet, 325 MG PO DAILY, (Reported) Atorvastatin Calcium (Atorvastatin Calcium) 40 Mg Tablet, 40 MG PO QHS, (Reported) Bupropion HCl (Bupropion Xl) 300 Mg Tab, 300 MG PO DAILY, (Reported) Calcium Carbonate/Vitamin D3 (Calcium 600-Vit D3 200 Tablet) 1 Each Tablet, 1 TAB PO BID, (Reported) Carvedilol (Carvedilol) 12.5 Mg Tablet, 6.25 MG PO BID, (Reported) Clopidogrel Bisulfate (Clopidogrel) 75 Mg Tablet, 75 MG PO DAILY Gabapentin (Gabapentin) 300 Mg Cap, 300 MG PO TID, (Reported) Latanoprost/Pf (Latanoprost 0.005% Eye Drop) 7.5 Ml Drops, 1 DROP OU QHS, (Reported) Lisinopril (Lisinopril) 5 Mg Tablet, 5 MG PO DAILY, (Reported) Multivitamin (Multivitamins) 1 Each Tablet, 1 TAB PO DAILY, (Reported) Timolol Maleate (Timolol Maleate) 0.5% 5ML Drops, 1 DROP OU DAILY, (Reported) Scheduled PRN Nicotine (Nicotine Patch) 14 Mg/24 Hr Patch.td24, 14 MG TD DAILY PRN for SMOKING CESSATION, (Reported) Oxycodone HCl (Oxycodone HCl) 5 Mg Tablet, 5 MG PO Q6HP PRN for PAIN LEVEL 1-5 Polyethylene Glycol 3350 (Miralax) 17 Gm Powd.pack, 17 GM PO BID PRN for CONSTIPATION, (Reported) Allergies Coded Allergies: No Known Allergies (Unverified , 02/14/19) TYRELL MCINTOSH MD Sep 10, 2019 11:18
[2019-09-13 14:12] LABS: HEMOGLOBIN A 97.1 % (96.4-98.8); HEMOGLOBIN A2 2.1 % (1.8-3.2); HEMOGLOBIN F (FETAL) 0.8 % (0.0-2.0); HGB SOLUBILITY Negative (Negative)
== END 2019-09-10 11:00 | disposition home or self-care (01) ==
LOC: M ED 05:07 → M ED INP 05:08 → ENRESERV 10:36 → M MS5PR 11:27
PROVIDERS: ADMIT Internal Medicine; ATTEND Internal Medicine
DX: D73.5 Infarction of spleen (principal); I10 Essential (primary) hypertension; Z86.73 Personal history of transient ischemic attack (TIA), and cerebral infarction without residual deficits; I25.10 Atherosclerotic heart disease of native coronary artery without angina pectoris; M54.16 Radiculopathy, lumbar region; E78.49 Other hyperlipidemia; H40.9 Unspecified glaucoma; Z79.82 Long term (current) use of aspirin; Z79.899 Other long term (current) drug therapy; Z87.891 Personal history of nicotine dependence
CPT/HCPCS: 36415; 74177; 80048; 80053; 80076; 81001; 82550; 82553; 83021; 83690; 83735; 85025; 85027; 85610; 85660; 93005; 96374; 99285; J1650; J1885; Q9967

== ENCOUNTER 2019-09-25 16:37 | Emergency (ER) | payer OTHER ==
[~2019-09-25] VITALS: Ht 172.7 cm; Wt 77.3 kg
[~2019-09-25 16:37] MED LIST changes: +ATOR40TA75 PO; +BAYE325T12 PO; +CARV6.25 PO; +CLOP75TA2 PO; +LISI-542 PO; +MIRA1POW3 PO; +MULTTAB61 PO; +NICO14DI31 TD
[2019-09-25] MEDS ORDERED: TAMS1CAP17 (16:47)
[2019-09-25] MEDS ORDERED: LIDOCAINE 5% (LIDODERM) PATCH TD ONE (19:15)
[2019-09-25] MEDS ORDERED: CYCLOBENZAPRINE 10 MG TAB PO ONE (19:15)
--- NOTE | 2019-09-25 20:03 | REPVR ---
PROCEDURE INFORMATION: Exam: CT Cervical Spine Without Contrast Exam date and time: 09/25/2019 7:40 PM Age: 58 years old Clinical indication: Neck pain TECHNIQUE: Imaging protocol: Computed tomography images of the cervical spine without contrast. Radiation optimization: All CT scans at this facility use at least one of these dose optimization techniques: automated exposure control; mA and/or kV adjustment per patient size (includes targeted exams where dose is matched to clinical indication); or iterative reconstruction. COMPARISON: No relevant prior studies available. FINDINGS: Vertebrae: No acute fracture. Normal alignment. Discs/Spinal canal/Neural foramina: Degenerative spondylosis with disc space narrowing from C3-C4 through C6-C7 with intervertebral osteophytes. Mild bilateral foraminal narrowing at C3, moderate to severe foraminal narrowing on the left and moderate foraminal narrowing on the right at C4, moderate to severe bilateral foraminal narrowing at C5, moderate bilateral foraminal narrowing at C6 secondary to uncinate joint hypertrophic changes. Small posterior disc protrusion at C2-C3 without cord impingement. Disc osteophyte complexes at C3-C4, C4-C5, C5-C6 and C6-C7 result in varying degrees of effacement of the ventral subarachnoid space most pronounced at C5-C6 and C6-C7 resulting in mild cord impingement. Soft tissues: Unremarkable. Lungs: Lung apices demonstrate bullous emphysematous changes. IMPRESSION: Degenerative spondylosis with multilevel foraminal stenoses as described above and mild cord impingement at C5-C6 and C6-C7. Electronically signed by: Gian Almendarez On 09/25/2019 20:03:01 PM
[2019-09-25] MEDS ORDERED: **NOTE PATIENT COMMENT** MISC XX SCH (21:00)
[2019-09-25] MEDS ORDERED: ROBA750T4 PO (21:10)
[2019-09-25] MEDS ORDERED: LIDOCAINE 4% CREAM 5GM (LMX4) TOP ONE (21:15)
[2019-09-25] MEDS ORDERED: methocarbamoL 750 MG TAB PO ONE (21:15)
[2019-09-25 21:23] VITALS: BP 110/70
--- NOTE | 2019-09-26 06:48 | ED PDOC ---
Post-Departure Follow-Up dr hawthorne faxed formal report of ct c spine for fu Daryl Aranda MD Sep 26, 2019 06:48
== END 2019-09-25 21:24 | disposition home or self-care (01) ==
LOC: M ED 16:37
DX: M62.838 Other muscle spasm (principal); I25.2 Old myocardial infarction; E78.5 Hyperlipidemia, unspecified; Z86.718 Personal history of other venous thrombosis and embolism; Z86.73 Personal history of transient ischemic attack (TIA), and cerebral infarction without residual deficits; Z95.5 Presence of coronary angioplasty implant and graft; Z79.899 Other long term (current) drug therapy; Z79.01 Long term (current) use of anticoagulants

== ENCOUNTER 2019-10-03 02:44 | Inpatient (IN) | payer OTHER ==
[~2019-10-03] VITALS: Ht 172.7 cm; Wt 74.5 kg
[2019-10-03] VITALS (8 sets, daily range): BP systolic 129–160; BP diastolic 74–96; O2SAT 94–96
[~2019-10-03 02:44] MED LIST changes: +ROBA750T4 PO; +TAMS1CAP17 PO
[2019-10-03 03:55] LABS: BASO % 0.1 % (0.0-1.0); EOS % 0.1 % (0.0-3.0); HEMATOCRIT 36.8 % (42.0-52.0); HEMOGLOBIN 12.5 g/dl (13.5-17.5); LYMPH # 1.4 10^3/uL (1.5-5.0); LYMPH % 10.5 % (24.0-44.0); MEAN CORPUSCULAR HEMOGLOBIN 31.6 pg (27.0-33.0); MEAN CORPUSCULAR VOLUME 92.9 fl (80.0-96.0); MONO # 0.7 10^3/uL (0.0-0.8); MONO % 5.4 % (0.0-5.0); NEUTROPHILS # 11.2 10^3/uL (1.5-8.5); NEUTROPHILS % 83.2 % (36.0-66.0); PLATELET COUNT, AUTOMATED 329 10^3/uL (150-450); RED BLOOD COUNT 3.96 10^6/uL (4.30-6.10); WHITE BLOOD COUNT 13.4 10^3/uL (4.0-10.0)
[2019-10-03 04:35] LABS: ALBUMIN 2.9 GM/DL (3.2-5.2); ALT/SGPT 55 U/L (12-78); BILIRUBIN,DIRECT 0.2 MG/DL (0.0-0.2); BILIRUBIN,TOTAL 0.7 MG/DL (0.2-1.0); BLOOD UREA NITROGEN 17 MG/DL (7-18); CALCIUM LEVEL 8.2 MG/DL (8.5-10.1); CARBON DIOXIDE LEVEL 27 MEQ/L (21-32); CHLORIDE LEVEL 97 MEQ/L (98-107); CREATININE FOR GFR 0.91 MG/DL (0.70-1.30); GLOMERULAR FILTRATION RATE > 60.0 (>56); GLUCOSE, FASTING 201 MG/DL (70-100); LIPASE 32 U/L (73-393); POTASSIUM SERUM 4.7 MEQ/L (3.5-5.1); SODIUM LEVEL 131 MEQ/L (136-145); TOTAL PROTEIN 7.4 GM/DL (6.4-8.2)
[2019-10-03] MEDS ORDERED: METOCLOPRAMIDE INJ 10MG/2ML VIAL (J2765) IV ONE (05:45)
[2019-10-03] MEDS ORDERED: NS 1,000 ML IV ONE (05:45)
[2019-10-03] MEDS ORDERED: MORPHINE 2 MG/ML 1ML VIAL (J2270) IV ONE (06:15)
[2019-10-03] MEDS ORDERED: ISOVUE-370 76% 100ML VIAL (Q9967) As Ordered ONE (06:18)
[2019-10-03 06:34] LABS: CK-MB VALUE MASS 1.1 NG/ML (<3.6); CPK CREATINE PHOSPHOKINASE 50 U/L (39-308); TROPONIN I < 0.02 NG/ML (< 0.10)
--- NOTE | 2019-10-03 07:59 | REPVR ---
PROCEDURE INFORMATION: Exam: CT Abdomen And Pelvis With Contrast Exam date and time: 10/03/2019 6:13 AM Age: 58 years old Clinical indication: Abdominal pain; Generalized TECHNIQUE: Imaging protocol: Computed tomography of the abdomen and pelvis with intravenous contrast. Radiation optimization: All CT scans at this facility use at least one of these dose optimization techniques: automated exposure control; mA and/or kV adjustment per patient size (includes targeted exams where dose is matched to clinical indication); or iterative reconstruction. Contrast material: ISO; Contrast volume: 100 ml; Contrast route: AC; COMPARISON: CT ABD/PEL W/IV CONTRAST ONLY 09/09/2019 6:24 AM COMPARISON MORE: CT Spine,cervical w/o contrast 09/25/2019 7:38:14 PM COMPARISON MORE: SR - CT Chest without contrast 10/09/2016 3:20:15 PM FINDINGS: Lungs: There are cystic changes at the lung bases associated with the bullous emphysema seen in the upper zones on a previous CT of the neck. A 4 mm calcified granuloma is seen at the left base immediately above the diaphragm on axial image 13. The lung bases are otherwise unremarkable. Mediastinum: A small hiatal hernia is present. Liver: There are no focal liver lesions present. Gallbladder and bile ducts: The gallbladder is normal. Pancreas: The pancreas is normal. Spleen: Hypodensity of the posterior spleen was not present on the previous chest film and could represent late affects of subcapsular hematoma or splenic infarct present in August but not seen on the earlier noncontrast chest CT. Adrenals: The right adrenal gland is normal. There is an 11 mm left adrenal nodule with postcontrast density 78 units but a noncontrast density of 14 units on previous noncontrast chest study suggesting a simple adenoma. Kidneys and ureters: There is an 18 mm exophytic left lateral renal cyst.The kidneys are otherwise normal. Stomach and bowel: Mild diverticulosis is present in the sigmoid and descending colon. Appendix: No evidence of appendicitis. Intraperitoneal space: There is no free intraperitoneal air. There is extensive edema and/or bleeding in the mesenteric fat and puddling of contrast from a mesenteric artery on axial image 73 measuring 10 mm in diameter and a smaller more distal 7 x 10 mm collection on image 76. These are both observed on coronal image 37. They may reflect mycotic aneurysms. There are associated arterial and venous structures possibly indicating a shunt. Vasculature: See Intraperitoneal Space Finding. Lymph nodes: Unremarkable. No enlarged lymph nodes. Bladder: There is a distended bladder measuring 12.4 cm long by 8 cm AP and 10.8 cm transversely for estimated volume of 535 mL. Reproductive: Unremarkable as visualized. Bones/joints: The spine demonstrates moderate degenerative changes at multiple levels. Soft tissues: There is a fat filled left inguinal hernia. IMPRESSION: 1. There are cystic changes at the lung bases associated with the bullous emphysema seen in the upper zones on a previous CT of the neck. A 4 mm calcified granuloma is seen at the left base immediately above the diaphragm on axial image 13. The lung bases are otherwise unremarkable. 2. Hypodensity of the posterior spleen was not present on the previous chest film and could represent late affects of subcapsular hematoma or splenic infarct present in August but not seen on the earlier noncontrast chest CT. 3. There is an 11 mm left adrenal nodule with postcontrast density 78 units but a noncontrast density of 14 units on previous noncontrast chest study suggesting a simple adenoma. 4. There is extensive edema and/or bleeding in the mesenteric fat and puddling of contrast from a mesenteric artery on axial image 73 measuring 10 mm in diameter and a smaller more distal 7 x 10 mm collection on image 76. These are both observed on coronal image 37. They may reflect mycotic aneurysms. There are associated arterial and venous structures possibly indicating a shunt. Electronically signed by: Gerber Irving On 10/03/2019 07:59:30 AM
[2019-10-03] MEDS ORDERED: ONDANSETRON 4MG/2ML VIAL (J2405) IV ONE (08:00)
[2019-10-03] MEDS: MORPHINE 4 MG/ML 1ML VIAL/SYRINGE (J2270) IV PRN ×2 (08:16→10:01)
--- NOTE | 2019-10-03 08:51 | REP ---
CT of the abdomen and pelvis without IV and oral contrast as a follow-up from the recent abdomen/pelvis CT performed at 06:27 a.m. earlier this morning with IV contrast. 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 The more medial of the aneurysm measures 12 mm and the more peripheral aneurysm measures 12 mm on the current study. 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 There is a large focal zone of edema in the mesenteric fat adjacent to these two aneurysms. This is nonspecific and could represent mesenteric infarction or hemorrhage into the mesentery. On the prior study with IV contrast. There is opacification of vessels leading to an from these aneurysms one of these vessels. There is a branch of the superior mesenteric artery and in mesenteric vein. Therefore, as previously suggested, there may be an arterial venous shunting as a consequence of these aneurysms. There is no free intraperitoneal fluid. There is no free intraperitoneal air. There are hypo densities posterior to the spleen, similar to the prior study earlier today, the largest measuring up to 4.1 cm, nonspecific, splenic cysts versus hematomas versus splenic infarct. There is no perisplenic free fluid. The visualized lower lung millan are unchanged from the study earlier today. The unenhanced hepatic parenchyma, gallbladder and pancreas are unremarkable and unchanged. The adrenals are unchanged from the study earlier today. The kidneys are unchanged from study earlier today. The left renal exophytic cyst is unchanged. There is no hydronephrosis. Pelvis: There is contrast opacification of the bladder. Posterior to the bladder. There are multiple bladder diverticula E N L filled with contrast. There is no free fluid in the pelvis. Impression: There are two aneurysms in the mid abdomen on the right measuring 12 mm in diameter each, similar to the comparison CT earlier today . There is edema in the mesentery adjacent to these aneurysms suggesting mesenteric infarct versus hemorrhage versus combination. There is contrast enhancement of a superior mesenteric artery branch and mesenteric vein branch associated with the aneurysms, suggesting there may be A-V fistulization. The bladder is opacified. There are multiple opacified bladder diverticula posterior to the bladder. There is no free intraperitoneal fluid in the abdomen or pelvis. There is no free intraperitoneal air. There are hypo densities posteriorly in the spleen which could represent splenic cysts, hematomas or infarcts. There is an left adrenal nodule as described on the study earlier today, unchanged. Results are telephoned to the emergency room physician. Electronically Signed by Akira Saleh MD 10/03/2019 08:43 A
[2019-10-03 08:54] LABS: PARTIAL THROMBOPLASTIN TIME 35.9 SECONDS (25.0-38.4)
[2019-10-03 09:00] LABS: PROTHROMBIN TIME 12.9 SECONDS (11.8-14.0)
[2019-10-03] MEDS ORDERED: NS 1,000 ML IV SCH (09:00)
[2019-10-03] MEDS ORDERED: METH750T2 PO (09:35)
[2019-10-03] MEDS ORDERED: CLOP75TA2 PO (09:35)
[2019-10-03] MEDS ORDERED: VITA100T28 PO (09:35)
[2019-10-03] MEDS: MORPHINE 2 MG/ML 1ML VIAL (J2270) IV PRN ×2 (11:08→20:04)
[2019-10-03] MEDS ORDERED: fentaNYL 100 MCG/2 ML INJECTION (J3010) IV ONE (12:00)
[2019-10-03] MEDS ORDERED: MIDAZOLAM INJ 2 MG/2 ML VIAL (J2250) As Ordered ONE ×2 (12:21→15:21)
[2019-10-03] MEDS ORDERED: fentaNYL 100 MCG/2 ML INJECTION (J3010) As Ordered ONE ×2 (12:21→15:21)
[2019-10-03] MEDS ORDERED: diphenhydrAMINE INJ 50MG/ML VIAL (J1200) As Ordered ONE (12:21)
[2019-10-03] MEDS ORDERED: LIDOCAINE 1% MDV 20ML VIAL As Ordered ONE (12:22)
[2019-10-03] MEDS ORDERED: ISOVUE-300 61% 50ML VIAL (Q9967) As Ordered ONE ×3 (12:22→14:13)
[2019-10-03] MEDS ORDERED: HEPARIN 1,000 UNITS/ML 10ML VIAL (FOR RADIOLOGY& DIALYSIS ONLY)(J1644-10) As Ordered ONE (13:11)
[2019-10-03] MEDS ORDERED: ACETAMINOPHEN TAB 650MG DOSE (2X325MG) PO PRN (16:30)
[2019-10-03] MEDS: NS 1,000 ML IV SCH ×2 (17:26→21:15)
--- NOTE | 2019-10-03 17:29 | POST-OPPD ---
Postoperative Procedure Note Date Of Procedure: Oct 03, 2019 Time Of Procedure: 17:28 PREOPERATIVE DIAGNOSIS: sma branch vessel aneurysm POSTOPERATIVE DIAGNOSIS: same FINDINGS: same PROCEDURE: coil embolization of aneurysms. SURGEON: manoj ANESTHESIA: mod sed ESTIMATED BLOOD LOSS: < 5 ml COMPLICATIONS: none POSTOPERATIVE CONDITION: stable RAUL SALMON MD Oct 03, 2019 17:29
--- NOTE | 2019-10-03 18:11 | HPEPDOC ---
[facility] Medical History & Physical Date of Admission Oct 03, 2019 Date of Service: Oct 03, 2019 Attending Physician: GOOD MATHEW MD History and Physical CHIEF COMPLAINT: abdominal pain HISTORY OF PRESENT ILLNESS: Leoncio Toribio is a 58 YO M with past medical history of multiple CVAs and recent hospitalization for splenic infarction who presents with nausea, vomiting and severe abdominal pain. The patient and his report that for the past 6 months or so he has been having on and off abdominal pain which is crampy and stretches across the lower part of his abdomen. He has not been able to eat full or heavier meals and he has been very constipated. He denies any recent fevers but does note he has had some chills. Of note, he was admitted to [facility] on September 09, [address] with abdominal pain and CT abdomen pelvis demonstrated an area of low-attenuation of the spleen concerning for infarct. He was started on ASA 325mg daily and Plavix 75mg daily. The patient reports that since that admission. He was to follow-up with cardiology in [place] and neurology. He also reports that there was plan for him to have transesophageal echocardiogram in [place], but he is unsure why. PAST MEDICAL HISTORY: 1. Hypertension 2. CAD s/p cardiac stent in 2011 3. Hx of 2 CVA's, most recent in 07/2019 for which he was sent to [facility] 4. ? Upper and lower GI infection? (per patient) 5. Lumbar radiculopathy 6. Paroxysmal Atrial fibrillation PAST SURGICAL HISTORY: 1. R shoulder repair 2. Cardiac stent placement 2011 SOCIAL HISTORY: Former smoker, smoked for ~30 years, quit in July 2019. Drinks alcohol seldomly, Smokes marijuana every 3-4 days, no other drugs FAMILY HISTORY: Noncontributory ALLERGIES: Please see below. REVIEW OF SYSTEMS: CONSTITUTIONAL: In severe pain, uncomfortable HEENT: denies vision changes, no sinus problems, denies any trouble swallowing CARDIOVASCULAR: no palpitations RESPIRATORY: Denies any shortness of breath GENITOURINARY: No dysuria MUSCULOSKELETAL: Denies any joint/muscle pain GASTROINTESTINAL: Reports 10 out of 10, sharp abdominal pain worse in his groin area and left upper quadrant SKIN: No new rashes or lesions NEUROLOGICAL: No loss of sensation PSYCHIATRIC: Reports normal mood, no delusions or hallucinations ENDOCRINE: No hot/cold intolerance HEMATOLOGIC/LYMPHATIC: No easy bruising, no lumps/bumps ALLERGIC/IMMUNOLOGIC: No sinus symptoms HOME MEDICATIONS: Please see below. PHYSICAL EXAMINATION: VITAL SIGNS: Please see below. GENERAL APPEARANCE: Laying in bed in position, appears stated age, appears restless and acute distress, cooperative HEENT: EOMI, PERRLA, neck is supple with no thyromegaly or lymphadenopathy RESPIRATORY: Lungs are clear to auscultation bilaterally with no adventitious breath sounds appreciated CARDIOVASCULAR: no JVD, RRR, no murmurs/rubs/gallops ABDOMEN: Pulsations of the abdominal aorta can be auscultated in all 4 quadrants very loudly, there is tenderness to palpation both light and deep in all 4 quadrants, positive bowel sounds, no masses, no organomegaly EXTREMITIES: no clubbing, cyanosis or edema noted NEUROLOGICAL: No obvious focal deficits, unable to fully assess due to the pat ient's discomfort PSYCHIATRIC: normal mood/affect Skin: No rashes or ulcers. LN: No significant cervical or inguinal lymphadenopathy LABORATORY DATA: See below. IMAGING: CT ABD/PELVIS WITH IV CONTRAST: IMPRESSION: 1. There are cystic changes at the lung bases associated with the bullous emphysema seen in the upper zones on a previous CT of the neck. A 4 mm calcified granuloma is seen at the left base immediately above the diaphragm on axial image 13. The lung bases are otherwise unremarkable. 2. Hypodensity of the posterior spleen was not present on the previous chest film and could represent late affects of subcapsular hematoma or splenic infarct present in August but not seen on the earlier noncontrast chest CT. 3. There is an 11 mm left adrenal nodule with postcontrast density 78 units but a noncontrast density of 14 units on previous noncontrast chest study suggesting a simple adenoma. 4. There is extensive edema and/or bleeding in the mesenteric fat and puddling of contrast from a mesenteric artery on axial image 73 measuring 10 mm in diameter and a smaller more distal 7 x 10 mm collection on image 76. These are both observed on coronal image 37. They may reflect mycotic aneurysms. There are associated arterial and venous structures possibly indicating a shunt. CT ABDOMEN/PELVIS: Impression: There are two aneurysms in the mid abdomen on the right measuring 12 mm in diameter each, similar to the comparison CT earlier today . There is edema in the mesentery adjacent to these aneurysms suggesting mesenteric infarct versus hemorrhage versus combination. There is contrast enhancement of a superior mesenteric artery branch and mesenteric vein branch associated with the aneurysms, suggesting there may be A- V fistulization. The bladder is opacified. There are multiple opacified bladder diverticula posterior to the bladder. There is no free intraperitoneal fluid in the abdomen or pelvis. There is no free intraperitoneal air. There are hypo densities posteriorly in the spleen which could represent splenic cysts, hematomas or infarcts. There is an left adrenal nodule as described on the study earlier today, unchanged. Results are telephoned to the emergency room physician. MICROBIOLOGY: Please see below. 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 He was taken to the interventional radiology suite for coiling and will now be worked up further for possible thromboembolic event. PLAN: 1. Superior mesenteric artery pseudoaneurysms: Patient was taken to the interventional radiology suite where to coils were placed in the branches of the superior mesenteric artery at the sites of both aneurysms. -CT findings demonstrate 2 aneurysms in the mid abdomen on the right measuring 12 mm in diameter each, with surrounding edema in the mesentery adjacent to those aneurysms suggesting mesenteric infarct versus hemorrhage. -Given his recent history of splenic infarct, these 2 events do not correlate as this would suggest possible thromboembolism or dissection of multiple locations of the abdominal aorta. Case discussed with Dr. Wright who notes that the splenic infarcts may be inconsequential, or signs of vasculitis. -Will restart patient's aspirin and Plavix after procedure. Dr. Wright notes that the coils that were placed are reliant on clotting factors. Therefore, she will not need heparin drip at the moment. He will start Eliquis on October 06. -Pain control with IV Fentanyl 2. 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 No previous workup was done -Will order hypercoagulable workup including protein C and protein S deficiency, cardiolipin antibodies, beta glycoprotein, vasculitides, etc. -Transthoracic Echocardiogram ordered and pending. There is a possibility that a probable embolism could have originated from his heart. If transthoracic echocardiogram is inconclusive, will order transesophageal echocardiogram to assess the atrial appendage and any structural abnormality in the heart that could cause emboli 3. History of 2 CVAs, CHADSVASC score 4 points: -Will continue ASA and Plavix -Continue Atorvastatin 4. Paroxysmal AF: -Continue Coreg -Patient is in NSR. No indication for anticoagulation at this time. 5. HTN: -Continue Lisinopril 6. Urinary retention 2/2 BPH: -Continue Tamsulosin 7. Mood Disorder: -Continue Bupropion 8. Early satiety and abdominal pain: -Patient will need upper and lower endoscopy in outpatient setting. DISPO: Pending clinical improvement and further workup Vital Signs Vital Signs Date Time Temp Pulse Resp B/P (MAP) Pulse Ox O2 Delivery O2 Flow Rate FiO2 10/03/19 15:58 111 16 93 Room Air 10/03/19 15:43 3 10/03/19 12:15 97.7 10/03/19 12:00 167/100 (122) Laboratory Data Labs 24H Laboratory Tests 2 10/03/19 03:19: Immature Granulocyte % (Auto) 0.7, Neutrophils (%) (Auto) 83.2H, Lymphocytes (%) (Auto) 10.5L, Monocytes (%) (Auto) 5.4H, Eosinophils (%) (Auto) 0.1, Basophils (%) (Auto) 0.1, Neutrophils # (Auto) 11.2H, Lymphocytes # (Auto) 1.4L, Monocytes # (Auto) 0.7, Eosinophils # (Auto) 0.0, Basophils # (Auto) 0.0, Nucleated Red Blood Cells % (auto) 0.0, Anion Gap 7L, Glomerular Filtration Rate > 60.0, Ca lcium Level 8.2L, Total Bilirubin 0.7, Direct Bilirubin 0.2, Aspartate Amino Transf (AST/SGOT) 17, Alanine Aminotransferase (ALT/SGPT) 55, Alkaline Phosphatase 87, Total Creatine Kinase 50, Creatine Kinase MB 1.1, Creatine Kinase MB Relative Index 2.20, Troponin I < 0.02, Total Protein 7.4, Albumin 2.9L, Albumin/Globulin Ratio 0.64L, Lipase 32L 10/03/19 08:24: Prothrombin Time 12.9, Prothromb Time International Ratio 1.00, Activated Partial Thromboplast Time 35.9 10/03/19 08:26: POC Glucose (Misc Panel) 142H, POC Sodium (Misc Panel) 131L, POC Potassium (Misc Panel) 4.1, POC Chloride (Misc Panel) 97L, POC Total CO2 (Misc Panel) 25.0, POC Blood Urea Nitrogen (Misc Panel 14, POC Ionized Calcium (Misc Panel) 4.3L, POC Creatinine (Misc Panel) 0.7, POC Hematocrit (Misc Panel) 34.0L CBC/BMP Laboratory Tests 10/03/19 03:19 Home Medications Scheduled Apixaban (Eliquis) 5 Mg Tablet, 5 MG PO BID TO BE STARTED ON 10/06/2019 Aspirin (Aspirin) 325 Mg Tablet, 325 MG PO DAILY Atorvastatin Calcium (Atorvastatin Calcium) 40 Mg Tablet, 40 MG PO QHS Bupropion HCl (Bupropion Xl) 300 Mg Tab, 300 MG PO DAILY Carvedilol (Carvedilol) 12.5 Mg Tablet, 3.125 MG PO BID Gabapentin (Gabapentin) 300 Mg Cap, 300 MG PO TID Latanoprost/Pf (Latanoprost 0.005% Eye Drop) 7.5 Ml Drops, 1 DROP OU QHS Multivitamin (Multivitamins) 1 Each Tablet, 1 TAB PO DAILY Tamsulosin Hcl (Tamsulosin HCl) 0.4 Mg Capsule, 0.4 MG PO QHS Thiamine Mononitrate (Vit B1) (Vitamin B-1) 100 Mg Tablet, 100 MG PO DAILY Timolol Maleate (Timolol Maleate) 0.5% 5ML Drops, 1 DROP OU DAILY Scheduled PRN Polyethylene Glycol 3350 (Miralax) 17 Gm Powd.pack, 17 GM PO BID PRN for CONSTIPATION Allergies Coded Allergies: No Known Allergies (Unverified , 02/14/19) A-FIB/CHADSVASC A-FIB History Current/History of A-Fib/PAF?: Yes Current PO Anticoag Therapy: Yes Age/Risk Factor Scoring CHADSVASC: CHADSVASC Response (Comments) Value Age Risk Factor Age < 65 years old 0 Gender Risk Factor Male 0 Hx of CHF No 0 Hx of HTN Yes 1 Hx of Stroke/TIA/or VTE Yes 2 Hx of Diabetes No 0 Hx of Vascular Disease Yes 1 Total 4 Treatment Treatment ordered: Other Other anticoagulant ordered: ASA Plavix Reason Anticoagulant not given: Other Other reason anticoagulant not: Hypercoag workup GME ATTESTATION GME ATTESTATION My faculty preceptor for this patient encounter was physically present during the encounter and was fully available. All aspects of the patient interview, examination, medical decision making process, and medical care plan development were reviewed and approved by the faculty preceptor. The faculty preceptor is aware and concurs with the plan as stated in the body of this note and will attest to such by his/her cosignature. ATTENDING NOTE Patient was seen and examined by me this morning with the residents. Agree with the above assessment and plan CRISTINA SHARIF MD Oct 03, 2019 17:14 GOOD MATHEW MD Oct 05, 2019 13:10
[2019-10-03] MEDS ORDERED: MIRALAX *UNIT DOSE* 17GM PACKET PO PRN (18:15)
[2019-10-03] MEDS ORDERED: methocarbamoL 750 MG TAB PO PRN (18:15)
[2019-10-03] MEDS ORDERED: HYDROMORPHONE HCL 0.5 MG/ 0.5 ML SYRINGE (J1170 PER 1) IV PRN (19:15)
[2019-10-03 19:28] LABS: ERYTHROCYTE SEDIMENTATION RATE 70 mm/hr (0-20)
[2019-10-03 19:32] LABS: C REACTIVE PROTEIN QUANTITATIV 5.45 MG/DL (0.00-0.30)
[2019-10-03] MEDS: GABAPENTIN 300 MG CAP PO SCH (20:02)
[2019-10-03] MEDS: TAMSULOSIN 0.4 MG CAP PO SCH (20:02)
[2019-10-03] MEDS: ATORVASTATIN 20 MG TAB PO SCH (20:02)
[2019-10-03] MEDS: CARVedilol 6.25 MG TAB PO SCH (20:03)
[2019-10-03] MEDS: DOCUSATE SODIUM 100 MG CAP PO SCH (20:03)
[2019-10-03 20:21] LABS: HEMOGLOBIN A1c 5.5 %
[2019-10-04] VITALS (25 sets, daily range): BP systolic 100–134; BP diastolic 60–77; O2SAT 90–97
[2019-10-04 05:42] LABS: HEMATOCRIT 27.9 % (42.0-52.0); MEAN CORPUSCULAR HEMOGLOBIN 31.8 pg (27.0-33.0); MEAN CORPUSCULAR HGB CONC 34.1 g/dl (32.0-36.5); MEAN CORPUSCULAR VOLUME 93.3 fl (80.0-96.0); PLATELET COUNT, AUTOMATED 295 10^3/uL (150-450); RED BLOOD COUNT 2.99 10^6/uL (4.30-6.10); WHITE BLOOD COUNT 9.4 10^3/uL (4.0-10.0)
[2019-10-04 05:45] LABS: HEMOGLOBIN 9.5 g/dl (13.5-17.5)
[2019-10-04 05:58] LABS: ALT/SGPT 34 U/L (12-78); BLOOD UREA NITROGEN 11 MG/DL (7-18); CALCIUM LEVEL 7.6 MG/DL (8.5-10.1); CARBON DIOXIDE LEVEL 26 MEQ/L (21-32); CHLORIDE LEVEL 104 MEQ/L (98-107); CREATININE FOR GFR 0.73 MG/DL (0.70-1.30); GLOMERULAR FILTRATION RATE > 60.0 (>56); GLUCOSE, FASTING 99 MG/DL (70-100); POTASSIUM SERUM 4.2 MEQ/L (3.5-5.1); SODIUM LEVEL 135 MEQ/L (136-145)
[2019-10-04 05:59] LABS: ALBUMIN 2.2 GM/DL (3.2-5.2); BILIRUBIN,TOTAL 0.4 MG/DL (0.2-1.0); MAGNESIUM LEVEL 2.3 MG/DL (1.8-2.4); TOTAL PROTEIN 5.8 GM/DL (6.4-8.2)
[2019-10-04] MEDS: TIMOLOL MALEATE 0.5% OPHTH SOLN 5 ML OU SCH (09:00)
--- NOTE | 2019-10-04 09:07 | ECHO ---
DATE OF PROCEDURE: 10/03/2019 REFERRING PHYSICIAN: Dr. Shantel Porras INDICATION: Cerebrovascular accident date October 02. HEIGHT: 173 cm. WEIGHT: 77 kg. DIMENSIONS: IVS 1.2 LV 4.4 LVPW 1.2 LA 4.0 Aorta 3.1 Mitral E wave velocity 63 A-wave 106 E prime septal 8.9 E prime lateral 15.4 IVC 1.0 FINDINGS: This study is of acceptable technical quality. The patient is in sinus tachycardia with heart rate between 100 and 110 bpm. Normal LV size with hyperdynamic LV systolic function, estimated LVEF 65-70%. Mild LVH is noted. Right ventricle is normal size and systolic function as well. Left atrium is borderline enlarged, right atrium appears normal. Aortic valve has three cusps. It is minimally sclerotic but mobility is preserved. Mitral, tricuspid and pulmonic valves appear normal. No pericardial effusion is noted. Inferior vena cava is normal size aortic root is normal. Aortic arch and abdominal aorta were poorly visualized. Doppler interrogation of aortic valve reveals no stenosis and no insufficiency. Same applies for mitral valve. Mild tricuspid insufficiency is noted, estimated pulmonary artery pressure is in 30s corresponding to mild pulmonary hypertension. CONCLUSIONS: 1. Study is of good technical quality, the patient is in sinus tachycardia. 2. Normal LV size, mild LVH, hyperdynamic LV systolic function with estimated LVEF 65-70%. Grade 1 diastolic dysfunction. 3. No significant valvular disease. 4. Likely normal central venous pressure and mild pulmonary hypertension. COMMENT: SBE prophylaxis is not recommended.
[2019-10-04] MEDS: ASPIRIN 325 MG TAB PO SCH (09:47)
[2019-10-04] MEDS: THIAMINE 100 MG TAB PO SCH (09:47)
[2019-10-04] MEDS: DOCUSATE SODIUM 100 MG CAP PO SCH ×2 (09:47→20:01)
[2019-10-04] MEDS: buPROPion **XL** TABLET 150MG (WELLBUTRIN XL) PO SCH (09:47)
[2019-10-04] MEDS: CARVedilol 6.25 MG TAB PO SCH ×2 (09:47→21:41)
[2019-10-04] MEDS: CLOPIDOGREL 75 MG TAB PO SCH (09:47)
[2019-10-04] MEDS: GABAPENTIN 300 MG CAP PO SCH ×3 (09:48→20:01)
[2019-10-04] MEDS: lisinopriL 5 MG TAB PO SCH (09:48)
[2019-10-04] MEDS ORDERED: ELIQ5TAB PO (10:20)
[2019-10-04] MEDS ORDERED: SLF 3 ML SYR IV PRN (11:30)
--- NOTE | 2019-10-04 11:33 | REP ---
IR superior mesenteric angiogram. IR selective superior mesenteric artery catheterization and angiogram. IR selective distal superior mesenteric artery catheterization and angiogram. IR sub selective second order branch superior mesenteric artery micro catheterization and angiogram. IR sub selective third order branch superior mesenteric artery micro catheterization and angiogram. IR sub selective fourth order branch superior mesenteric artery micro catheterization and angiogram. IR sub selective fifth order branch superior mesenteric artery catheterization and angiogram. IR sub selective pseudoaneurysm catheterization off fourth order branch of the superior mesenteric artery, angiography and embolization. IR moderate sedation. Clinical Information: Superior mesenteric artery pseudoaneurysms. Abdominal pain. Physician: Dr Wright.Procedure: The patient was advised of the benefits, risks, and alternatives of the procedure and informed consent was obtained.A time out was performed with verification of the patient's name, MRN, site of procedure, and type of procedure to be performed. The patient was positioned in the supine position on the angiographic table. The site was prepped and draped in the usual sterile fashion.Moderate sedation was performed by the physician including the presence of an independent trained observer who assisted in monitoring the patient's level of consciousness and physiological status. Following the administration of Fentanyl and Versed, the physician spent 180 minutes of continuous [id number] time with the patient. A blower insulator radiograph reveals no gross abnormality. The right femoral artery was accessed with a micropuncture kit. A [employer] wire was advanced into the aorta. The micropuncture sheath was exchanged over the wire for a a 5-Serbian vascular sheath. A 4-Serbian flush catheter was advanced over the wire and used to catheterize the abdominal aorta. This was used to try to engage the origin of the superior mesenteric artery without success. Therefore this was used with the wire under fluoroscopy guidance to gain up and over access at the aortic bifurcation. The catheter was removed over the wire. A Huffman 1 catheter was advanced over the wire and formed at the aortic bifurcation. The Huffman 1 catheter was used to catheterize the superior mesenteric artery. A superior mesenteric arteriogram was performed and this demonstrates patent superior mesenteric artery, jejunal branches, ileal branches, middle colic artery, ileocolic - right colic trunk and distal terminal SMA. Distal terminal branches arising off the superior mesenteric artery supply three large pseudoaneurysms in the right lower quadrant. A micro catheter and micro wire were inserted through the diagnostic catheter and used to sub selectively catheterize the distal terminal SMA. An arteriogram was performed and this demonstrates third and fourth order branches arising off this vessel supplying the pseudoaneurysms. The micro catheter in conjunction with a micro wire was used to sub selectively catheterize a fourth order branch off this vessel. Angiogram was performed and this demonstrates no filling of the aneurysms from the subselected vessel. The micro catheter was retracted back and a follow-up arteriogram was performed from the second order vessel. This demonstrates bifurcation into two-vessel, one which supplies the pseudoaneurysms. The micro catheter in conjunction with a micro wire was advanced through the pseudoaneurysm and used to catheterize a fifth order branches distal to the aneurysm. An arteriogram was performed and this demonstrates tiny distal vasculature to the aneurysm. A 2-mm coil was advanced into this very distal small vessel for distal embolization. However the vessel is too small for the coil. Therefore the catheter was retracted to the fourth order branch and a follow-up arteriogram was performed this demonstrates filling of the pseudoaneurysm. No non target vascular supply from this location. No back door to the aneurysm. The micro catheter in conjunction with a micro wire was used under fluoroscopy guidance to catheterize the distal most pseudoaneurysm, arising off the fourth order branch of the terminal SMA branches. A series of coils were deployed within the pseudoaneurysm. The micro catheter was retracted back into the more proximal pseudoaneurysm and contrast injection demonstrates filling of the more proximal pseudoaneurysm. No non target vascular supply from subselective micro catheter location. No back door to this aneurysm. This is the larger and bilobed appearing pseudoaneurysm which gives the appearance of three. A series of coils were then deployed in the second pseudoaneurysm. The micro catheter was retracted back and a follow-up arteriogram was performed. This demonstrates persistent filling of second pseudoaneurysm. Therefore the micro catheter was re-advanced over the wire under fluoroscopy guidance into the second pseudoaneurysm. Further coils were deployed into the second pseudoaneurysm. The micro catheter was retracted back into the third order branch. An arteriogram was performed and this demonstrates no further filling of the pseudoaneurysms. There is reflux into the downgoing fourth order branch of this vessel. The micro catheter was retracted back into the proximal third order branch of the terminal SMA. An arteriogram was performed and this demonstrates persistent filling of the superior outer quadrant of the second aneurysm. The micro catheter was again used with a wire to catheterize the second pseudoaneurysm. More coils were deployed into the pseudoaneurysm. The micro catheter was retracted back into the third order branch and a follow-up arteriogram was performed. This demonstrates no further filling of the pseudoaneurysms. The micro catheter was retracted further back into the second order branch vessel. A follow-up arteriogram was performed and this demonstrates no further filling of the pseudoaneurysms. The micro catheter in conjunction with the micro wire was retracted back and used to sub selectively catheterize the ileocolic - right colic trunk off the SMA coursing over the region of the pseudoaneurysms. An arteriogram was performed and this demonstrates no supply from this branch of this vessel to the pseudoaneurysms. No other pseudoaneurysms. The micro catheter and micro wire were removed. A post follow-up arteriogram was performed through the diagnostic catheter located in the main superior mesenteric artery. This demonstrates patent jejunal, ileocolic, mid colic, right colic and terminal SMA branches off the superior mesenteric artery and no further filling of pseudoaneurysms in the abdomen. No non target embolization. The catheter and wire were removed. A 5-Serbian mynx device was used to close the right groin arteriotomy and the sheath was removed. Hemostasis achieved and a sterile dressing was applied to the site. Patient tolerated the procedure well and was transferred to PRU in stable condition. Complications: None. Estimated blood loss: Less than 5 ml. Impression: 1. Superior mesenteric arteriogram demonstrates patent superior mesenteric artery branches. Pseudoaneurysms arising off third and fourth order branches of the distal terminal SMA. 2. Successful pseudoaneurysm embolization. 3. Patient to follow up in IR clinic in 1 month time. Thank you for this referral. Electronically Signed by Serenity Wright MD 10/04/2019 11:31 A
[2019-10-04] MEDS: SLF 3 ML SYR IV SCH ×2 (14:00→20:02)
[2019-10-04] MEDS: MOM 30ML SUSPENSION UDC PO PRN (15:58)
--- NOTE | 2019-10-04 16:04 | IPNPDOC ---
Date Seen The patient was seen on 10/04/19. Progress Note SUBJECTIVE: Patient seen and examined at the bedside this morning. He states his pain has much improved. He does still have some lower abdominal pain and early satiety. He tolerated his procedure well yesterday. , Otherwise no complaints this morning OBJECTIVE PHYSICAL EXAMINATION: VITAL SIGNS: Please see below. GENERAL APPEARANCE: Laying in bed in position, appears stated age, appears restless and acute distress, cooperative HEENT: EOMI, PERRLA, neck is supple with no thyromegaly or lymphadenopathy RESPIRATORY: Lungs are clear to auscultation bilaterally with no adventitious breath sounds appreciated CARDIOVASCULAR: no JVD, RRR, no murmurs/rubs/gallops ABDOMEN: Slight tenderness to palpation in the right lower and left lower quadrants, positive bowel sounds, no masses, no organomegaly EXTREMITIES: no clubbing, cyanosis or edema noted NEUROLOGICAL: No obvious focal deficits PSYCHIATRIC: normal mood/affect Skin: No rashes or ulcers. LN: No significant cervical or inguinal lymphadenopathy LABORATORY DATA, IMAGING STUDIES, MICROBIOLOGY: Please see below. 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 He was taken to the interventional radiology suite for coiling and will now be worked up further for possible thromboembolic event. PLAN: 1. Superior mesenteric artery pseudoaneurysms: Postoperative day 1 status post coiling to 2 aneurysms in branches of the superior mesenteric artery. -CT findings demonstrate 2 aneurysms in the mid abdomen on the right measuring 12 mm in diameter each, with surrounding edema in the mesentery adjacent to those aneurysms suggesting mesenteric infarct versus hemorrhage. -Case discussed with Dr. Wright who notes that the splenic infarcts may be inconsequential, or signs of vasculitis. -Will restart patient's aspirin and Plavix after procedure. Dr. Wright notes that the coils that were placed are reliant on clotting factors. Therefore, she will not need heparin drip at the moment. He will start Eliquis on October 05. This has already been sent to his pharmacy and has been approved. -Pain control with IV Fentanyl/Dilauded 2. 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 No previous workup was done -Hypercoagulable workup including protein C and protein S deficiency, cardiolipi n antibodies, beta glycoprotein, vasculitides, etc. pending -Transthoracic Echocardiogram ordered. There is a possibility that a probable embolism could have originated from his heart. Echo found to be within normal limits and with grade 1 diastolic dysfunction. No indication for RASHAUN at this time. 3. History of 2 CVAs, CHADSVASC score 4 points: -Will continue ASA and Plavix -Continue Atorvastatin 4. Paroxysmal AF: -Continue Coreg -Patient is in NSR. No indication for anticoagulation at this time. 5. HTN: -Continue Lisinopril 6. Urinary retention 2/2 BPH: -Continue Tamsulosin 7. Mood Disorder: -Continue Bupropion 8. Early satiety and abdominal pain: -Patient will need upper and lower endoscopy in outpatient setting. DISPO: Pending clinical improvement and further workup VS, I&O, 24H, Fishbone Vital Signs/I&O Vital Signs Date Time Temp Pulse Resp B/P (MAP) Pulse Ox O2 Delivery O2 Flow Rate FiO2 10/04/19 12:12 97.8 106 18 130/69 (89) 95 Room Air 10/03/19 15:43 3 I&O- Last 24 Hours up to 6 AM 10/04/19 06:00 Intake Total 1300 ml Output Total 400 ml Balance 900 ml Laboratory Data 24H LABS Laboratory Tests 2 10/03/19 18:37: 10/03/19 18:38: C-Reactive Protein, Quantitative 5.45H, Thyroid Stimulating Hormone (TSH) 1.290 10/03/19 18:40: 10/04/19 04:47: Nucleated Red Blood Cells % (auto) 0.0, Anion Gap 5L, Glomerular Filtration Rate > 60.0, Calcium Level 7.6L, Magnesium Level 2.3, Total Bilirubin 0.4, Aspartate Amino Transf (AST/SGOT) 11, Alanine Aminotransferase (ALT/SGPT) 34, Alkaline P hosphatase 68, Total Protein 5.8#L, Albumin 2.2#L, Albumin/Globulin Ratio 0.61L CBC/BMP Laboratory Tests 10/04/19 04:47 GME ATTESTATION GME ATTESTATION My faculty preceptor for this patient encounter was physically present during the encounter and was fully available. All aspects of the patient interview, examination, medical decision making process, and medical care plan development were reviewed and approved by the faculty preceptor. The faculty preceptor is aware and concurs with the plan as stated in the body of this note and will attest to such by his/her cosignature. ATTENDING NOTE Patient was seen and examined by me this morning with the residents. Agree with the above assessment and plan CRISTINA SHARIF MD Oct 04, 2019 15:28 GOOD MATHEW MD Oct 05, 2019 13:13
[2019-10-04 19:35] LABS: CRYOGLOBULINS NEGATIVE (NEGATIVE)
[2019-10-04] MEDS: ATORVASTATIN 20 MG TAB PO SCH (20:01)
[2019-10-04] MEDS: TAMSULOSIN 0.4 MG CAP PO SCH (20:01)
--- NOTE | 2019-10-04 20:41 | ECGEPIP ---
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
[2019-10-05] VITALS (9 sets, daily range): BP systolic 100–146; BP diastolic 56–58; O2SAT 93–97
[2019-10-05] MEDS: SLF 3 ML SYR IV SCH (05:39)
[2019-10-05 05:50] LABS: HEMATOCRIT 26.2 % (42.0-52.0); HEMOGLOBIN 8.9 g/dl (13.5-17.5); MEAN CORPUSCULAR HEMOGLOBIN 31.7 pg (27.0-33.0); MEAN CORPUSCULAR VOLUME 93.2 fl (80.0-96.0); PLATELET COUNT, AUTOMATED 267 10^3/uL (150-450); RED BLOOD COUNT 2.81 10^6/uL (4.30-6.10)
[2019-10-05 06:28] LABS: ALBUMIN 2.4 GM/DL (3.2-5.2); ALT/SGPT 30 U/L (12-78); BILIRUBIN,TOTAL 0.6 MG/DL (0.2-1.0); BLOOD UREA NITROGEN 12 MG/DL (7-18); CALCIUM LEVEL 7.7 MG/DL (8.5-10.1); CARBON DIOXIDE LEVEL 27 MEQ/L (21-32); CHLORIDE LEVEL 101 MEQ/L (98-107); CREATININE FOR GFR 0.85 MG/DL (0.70-1.30); GLOMERULAR FILTRATION RATE > 60.0 (>56); GLUCOSE, FASTING 90 MG/DL (70-100); MAGNESIUM LEVEL 2.5 MG/DL (1.8-2.4); POTASSIUM SERUM 4.1 MEQ/L (3.5-5.1); SODIUM LEVEL 133 MEQ/L (136-145); TOTAL PROTEIN 6.3 GM/DL (6.4-8.2)
[2019-10-05] MEDS: TIMOLOL MALEATE 0.5% OPHTH SOLN 5 ML OU SCH (09:00)
[2019-10-05] MEDS: MOM 30ML SUSPENSION UDC PO PRN (09:11)
[2019-10-05] MEDS: DOCUSATE SODIUM 100 MG CAP PO SCH (09:12)
[2019-10-05] MEDS: THIAMINE 100 MG TAB PO SCH (09:12)
[2019-10-05] MEDS: CARVedilol 6.25 MG TAB PO SCH (09:12)
[2019-10-05] MEDS: GABAPENTIN 300 MG CAP PO SCH (09:12)
[2019-10-05] MEDS: ASPIRIN 325 MG TAB PO SCH (09:12)
[2019-10-05] MEDS: CLOPIDOGREL 75 MG TAB PO SCH (09:12)
[2019-10-05] MEDS: buPROPion **XL** TABLET 150MG (WELLBUTRIN XL) PO SCH (09:13)
[2019-10-05] MEDS: lisinopriL 5 MG TAB PO SCH (09:13)
[2019-10-05] MEDS ORDERED: CARV12.5 PO (10:30)
--- NOTE | 2019-10-05 16:49 | DS.PDOC ---
Discharge Summary General Date of Admission Oct 03, 2019 at 10:02 Date of Discharge 10/05/2019 Primary Care Physician: Jennifer Patton MD Attending Physician: GOOD MATHEW MD Specialist/Consultants Involve: RAUL SALMON MD Discharge Summary PROCEDURES PERFORMED DURING STAY: [None]. ADMITTING DIAGNOSES: 1. abdominal pain 2. Splenic infarct DISCHARGE DIAGNOSES: 1. Superior mesenteric artery pseudoaneurysms x2 2. History of splenic infarct COMPLICATIONS/CHIEF COMPLAINT: Aneurysm Of Superior Mesenteric Artery. HISTORY OF PRESENT ILLNESS: Leoncio Toribio is a 58 YO M with past medical history of multiple CVAs and recent hospitalization for splenic infarction who presents with nausea, vomiting and severe abdominal pain. The patient and his report that for the past 6 months or so he has been having on and off abdominal pain which is crampy and stretches across the lower part of his abdomen. He has not been able to eat full or heavier meals and he has been very constipated. He denies any recent fevers but does note he has had some chills. Of note, he was admitted to [facility] on September 09, 2019 with a bdominal pain and CT abdomen pelvis demonstrated an area of low-attenuation of the spleen concerning for infarct. He was started on ASA 325mg daily and Plavix 75mg daily. The patient reports that since that admission. He was to follow-up with cardiology in [place] and neurology. He also reports that there was plan for him to have transesophageal echocardiogram in [place], but he is unsure why. HOSPITAL COURSE: The patient presented with severe abdominal and back pain and found to have 2 aneurysms in the mid abdomen measuring 12mm in diameter each with surrounding edema. Interventional radiology was consulted and he was taken to the IR suite for coiling. The patient tolerated the procedure well. Labs for full hypercoagulable workup were drawn and were pending on discharge. These need to be follow up on once they are resulted. On hospital day #2, he was able to tolerate a full diet and his abdominal and back pain had improved. He was discharged on hospital day #3 with plan to start Eliquis and follow up with his PCP and Dr. Salmon. It is to be noted that the patient separately complained of early satiety and crampy abdominal pain. He will need to have UGI endoscopy and colonoscopy scheduled in outpatient setting. DISCHARGE MEDICATIONS: Please see below. ALLERGIES: Please see below. PHYSICAL EXAMINATION ON DISCHARGE: VITAL SIGNS: Please see below. GENERAL APPEARANCE: Laying in bed in position, appears stated age, appears restless and acute distress, cooperative HEENT: EOMI, PERRLA, neck is supple with no thyromegaly or lymphadenopathy RESPIRATORY: Lungs are clear to auscultation bilaterally with no adventitious breath sounds appreciated CARDIOVASCULAR: no JVD, RRR, no murmurs/rubs/gallops ABDOMEN: Slight tenderness to palpation in the right lower and left lower quadrants, positive bowel sounds, no masses, no organomegaly EXTREMITIES: no clubbing, cyanosis or edema noted NEUROLOGICAL: No obvious focal deficits PSYCHIATRIC: normal mood/affect Skin: No rashes or ulcers. LN: No significant cervical or inguinal lymphadenopathy LABORATORY DATA: Please see below. IMAGING: CT ABD/PELVIS: There are two aneurysms in the mid abdomen on the right measuring 12 mm in diameter each, similar to the comparison CT earlier today . There is edema in the mesentery adjacent to these aneurysms suggesting mesenteric infarct versus hemorrhage versus combination. There is contrast enhancement of a superior mesenteric artery branch and mesenteric vein branch associated with the aneurysms, suggesting there may be A- V fistulization. The bladder is opacified. There are multiple opacified bladder diverticula posterior to the bladder. There is no free intraperitoneal fluid in the abdomen or pelvis. There is no free intraperitoneal air. There are hypo densities posteriorly in the spleen which could represent splenic cysts, hematomas or infarcts. There is an left adrenal nodule as described on the study earlier today, unchanged. PROGNOSIS: fair ACTIVITY: [As tolerated]. DIET: as tolerated DISCHARGE PLAN: home DISPOSITION: Home, Self-Care. DISCHARGE INSTRUCTIONS: 1. See PCP within 7 days ITEMS TO FOLLOWUP ON ON OUTPATIENT: 1. Follow up with hypercoagulable workup 2. Schedule UGI and colonoscopy DISCHARGE CONDITION: [Stable]. TIME SPENT ON DISCHARGE: Greater than 35 minutes. Vital Signs/I&Os Vital Signs Date Time Temp Pulse Resp B/P (MAP) Pulse Ox O2 Delivery O2 Flow Rate FiO2 10/05/19 09:13 146/58 10/05/19 09:12 100 10/05/19 08:01 97.0 17 98 Room Air 10/03/19 15:43 3 I&O- Last 24 Hours up to 6 AM 10/05/19 06:00 Intake Total 1780 ml Output Total 2000 ml Balance -220 ml Laboratory Data Labs 24H Laboratory Tests 2 10/05/19 05:27: Nucleated Red Blood Cells % (auto) 0.0 10/05/19 05:28: Anion Gap 5L, Glomerular Filtration Rate > 60.0, Calcium Level 7.7L, Magnesium Level 2.5H, Total Bilirubin 0.6, Aspartate Amino Transf (AST/SGOT) 17, Alanine Aminotransferase (ALT/SGPT) 30, Alkaline Phosphatase 69, Total Protein 6.3L, Albumin 2.4L, Albumin/Globulin Ratio 0.62L CBC/BMP Laboratory Tests 10/05/19 05:27 10/05/19 05:28 Discharge Medications Scheduled Apixaban (Eliquis) 5 Mg Tablet, 5 MG PO BID TO BE STARTED ON 10/06/2019 Aspirin (Aspirin) 325 Mg Tablet, 325 MG PO DAILY, (Reported) Atorvastatin Calcium (Atorvastatin Calcium) 40 Mg Tablet, 40 MG PO QHS, (Reported) Bupropion HCl (Bupropion Xl) 300 Mg Tab, 300 MG PO DAILY, (Reported) Carvedilol (Carvedilol) 12.5 Mg Tablet, 3.125 MG PO BID Gabapentin (Gabapentin) 300 Mg Cap, 300 MG PO TID, (Reported) Latanoprost/Pf (Latanoprost 0.005% Eye Drop) 7.5 Ml Drops, 1 DROP OU QHS, (Reported) Multivitamin (Multivitamins) 1 Each Tablet, 1 TAB PO DAILY, (Reported) Tamsulosin Hcl (Tamsulosin HCl) 0.4 Mg Capsule, 0.4 MG PO QHS, (Reported) Thiamine Mononitrate (Vit B1) (Vitamin B-1) 100 Mg Tablet, 100 MG PO DAILY, (Reported) Timolol Maleate (Timolol Maleate) 0.5% 5ML Drops, 1 DROP OU DAILY, (Reported) Scheduled PRN Polyethylene Glycol 3350 (Miralax) 17 Gm Powd.pack, 17 GM PO BID PRN for CONSTIPATION, (Reported) Allergies Coded Allergies: No Known Allergies (Unverified , 02/14/19) GME ATTESTATION GME ATTESTATION My faculty preceptor for this patient encounter was physically present during the encounter and was fully available. All aspects of the patient interview, examination, medical decision making process, and medical care plan development were reviewed and approved by the faculty preceptor. The faculty preceptor is aware and concurs with the plan as stated in the body of this note and will attest to such by his/her cosignature. ATTENDING NOTE Patient was seen and examined by me this morning with the residents. Agree with the above assessment and plan CRISTINA SHARIF MD Oct 05, 2019 16:49 GOOD MATHEW MD Oct 06, 2019 08:45
[2019-10-07 00:11] LABS: ANCA-ATYPICAL <1:20 titer (Neg:<1:20); ANTI THROMBIN 3 ANTIGEN IMMUNO 81 % (72-124); ANTI THROMBIN 3 FUNCT ACTIVITY 100 % (75-135); ANTI-GLOMERULAR BASEMENT MEMB 3 units (0-20); ANTINUCLEAR ANTIBODIES DIRECT Negative (Negative); BETA-2 GLYCOPROTEIN I ABY IGA 10 (0-25); BETA-2 GLYCOPROTEIN I ABY IGG <9 (0-20); BETA-2 GLYCOPROTEIN I ABY IGM 10 (0-32); CARDIOLIPIN IGA ANTIBODY <9 APL U/mL (0-11); CARDIOLIPIN IGG ANTIBODY 10 GPL U/mL (0-14); CARDIOLIPIN IGM ANTIBODY 23 MPL U/mL (0-12); CYTOPLASMIC NEUTROP AB ANCA-C <1:20 titer (Neg:<1:20); HOMOCYST(E)INE SERUM 4.4 umol/L (0.0-14.5); PERINUCLEAR AB ANCA-P <1:20 titer (Neg:<1:20); PROTEIN C ANTIGEN 103 % (60-150); PROTEIN S ANTIGEN FREE 79 % (57-157); PROTEIN S ANTIGEN TOTAL 84 % (60-150); SJOGREN'S ANTI SS-A <0.2 AI (0.0-0.9); SJOGREN'S ANTI SS-B <0.2 AI (0.0-0.9)
== END 2019-10-05 11:47 | disposition home or self-care (01) | DRG 182 ==
LOC: M ED 02:44 → M ED INP 10:02 → M PCU 16:27
PROVIDERS: ADMIT Internal Medicine; ATTEND Internal Medicine
PROC: 04L53DZ Occlusion of Superior Mesenteric Artery with Intraluminal Device, Percutaneous Approach (ICD-10-PCS; principal; 2019-10-03 13:00)
DX: I72.8 Aneurysm of other specified arteries (principal); D73.5 Infarction of spleen; I10 Essential (primary) hypertension; I25.10 Atherosclerotic heart disease of native coronary artery without angina pectoris; I48.0 Paroxysmal atrial fibrillation; M54.16 Radiculopathy, lumbar region; Z95.5 Presence of coronary angioplasty implant and graft; Z87.891 Personal history of nicotine dependence; Z86.73 Personal history of transient ischemic attack (TIA), and cerebral infarction without residual deficits; N40.1 Benign prostatic hyperplasia with lower urinary tract symptoms; R33.9 Retention of urine, unspecified; F39 Unspecified mood [affective] disorder; Z79.01 Long term (current) use of anticoagulants; Z79.82 Long term (current) use of aspirin

== ENCOUNTER 2019-10-19 02:33 | Inpatient (IN) | payer OTHER ==
[2019-10-19] VITALS (9 sets, daily range): BP systolic 93–119; BP diastolic 59–71
[~2019-10-19] VITALS: Ht 172.7 cm; Wt 63.8 kg
[~2019-10-19 02:33] MED LIST changes: +ELIQ5TAB PO; +METH750T2 PO; +VITA100T28 PO
[2019-10-19] MEDS ORDERED: NS 1,000 ML IV ONE (03:00)
[2019-10-19] MEDS ORDERED: ISOVUE-370 76% 100ML VIAL (Q9967) As Ordered ONE (03:08)
[2019-10-19] MEDS ORDERED: ONDANSETRON 4MG/2ML VIAL (J2405) IV ONE (03:15)
[2019-10-19 03:29] LABS: BASO % 0.3 % (0.0-1.0); EOS # 0.1 10^3/uL (0.0-0.5); EOS % 0.6 % (0.0-3.0); HEMATOCRIT 26.4 % (42.0-52.0); HEMOGLOBIN 8.9 g/dl (13.5-17.5); LYMPH % 19.5 % (24.0-44.0); MEAN CORPUSCULAR HEMOGLOBIN 31.3 pg (27.0-33.0); MEAN CORPUSCULAR HGB CONC 33.7 g/dl (32.0-36.5); MONO % 9.2 % (0.0-5.0); NEUTROPHILS # 7.3 10^3/uL (1.5-8.5); NEUTROPHILS % 69.9 % (36.0-66.0); PLATELET COUNT, AUTOMATED 199 10^3/uL (150-450); RED BLOOD COUNT 2.84 10^6/uL (4.30-6.10); WHITE BLOOD COUNT 10.4 10^3/uL (4.0-10.0)
[2019-10-19] MEDS: MORPHINE 4 MG/ML 1ML VIAL/SYRINGE (J2270) IV PRN ×2 (03:41→04:25)
[2019-10-19 03:42] LABS: INR 1.64; PARTIAL THROMBOPLASTIN TIME 42.6 SECONDS (25.0-38.4); PROTHROMBIN TIME 19.2 SECONDS (11.8-14.0)
--- NOTE | 2019-10-19 04:06 | REPVR ---
PROCEDURE INFORMATION: Exam: CT Angiography Abdomen and Pelvis With Contrast Exam date and time: 10/19/2019 2:59 AM Age: 58 years old Clinical indication: Abdominal pain; Localized; Left upper quadrant (luq); Prior surgery; Surgery date: <1 month; Surgery type: Coiling pseudo aneurysm; Additional info: Luq abd pain, recent coiling of mesenteric pseudoaneurysm TECHNIQUE: Imaging protocol: Computed tomographic angiography of the abdomen and pelvis with intravenous contrast material. 3D rendering: MIP and/or 3D reconstructed images were created by the technologist. Radiation optimization: All CT scans at this facility use at least one of these dose optimization techniques: automated exposure control; mA and/or kV adjustment per patient size (includes targeted exams where dose is matched to clinical indication); or iterative reconstruction. Contrast material: ISO; Contrast volume: 100 ml; Contrast route: AC; COMPARISON: CT ABD/PEL W/IV CONTRAST ONLY 10/03/2019 6:26 AM FINDINGS: Aorta: Mild aortic atherosclerotic disease. No aneurysm or dissection. Celiac trunk and mesenteric arteries: Celiac artery axis is patent without significant stenosis or dissection. Superior mesenteric artery and visualized branches are patent without stenosis. No SMA occlusion or dissection. Inferior mesenteric artery is patent without significant stenosis or occlusion. Renal arteries: No occlusion or significant stenosis. Right iliac arteries: Mild atherosclerotic disease without significant stenosis or occlusion. Left iliac arteries: Mild atherosclerotic disease without significant stenosis or occlusion. Liver: No mass. Gallbladder and bile ducts: Unremarkable. No calcified stones. No ductal dilation. Pancreas: Unremarkable. No mass. No ductal dilation. Spleen: Stable appearance of low-density areas in the spleen. No contrast extravasation or laceration in the spleen. Adrenals: Mild adrenal hyperplasia. No mass. Kidneys and ureters: Stable 1.9 cm exophytic left renal mass. Kidneys are otherwise unremarkable. No hydronephrosis. Stomach and bowel: Mild colonic diverticulosis. No obstruction. No mucosal thickening. Some hyperattenuating intraluminal fluid or contrast is present in the distal small bowel and cecum. Appendix: No evidence of appendicitis. Intraperitoneal space: Aneurysms seen in the mesentery on the previous exam are no longer visualized. Multiple embolization coils are noted in the lower mid abdominal mesentery. There is a 5.4 x 4.2 cm area of soft tissue nodularity in the left mesentery associated with the embolization coils suggesting a mesenteric hematoma. There is a nodular area of increased attenuation posterior to the embolization coils measuring 10 mm (image 80 of series 401) concerning for possible contrast extravasation. Trace free fluid. No abscess. Lymph nodes: Unremarkable. No enlarged lymph nodes. Bladder: Unremarkable. No mass. Reproductive: Unremarkable as visualized. Bones/joints: There are degenerative changes in the spine and pelvis. Soft tissues: Unremarkable. IMPRESSION: 1. Interval embolization of mesenteric aneurysms. Probable small hematoma in the left lower abdominal abdominal mesentery containing several embolization coils. Nodular area of hyperattenuation adjacent to the embolization material may be continued contrast extravasation but evaluation is limited by streak artifacts from adjacent embolization material. 2. Hyperattenuating intraluminal fluid or contrast in the small bowel and cecum distal to the area of mesenteric embolization. If there has not been recent oral contrast administration, findings may indicate intraluminal contrast extravasation into the small bowel. If there is active lower GI bleeding, nuclear medicine tagged red blood cell scan may be helpful for confirmation. 3. No other arterial contrast extravasation. No aneurysm common common or flow-limiting stenosis. 4. Stable appearance of other incidental findings as above. Electronically signed by: Casey Mejia On 10/19/2019 04:05:45 AM
[2019-10-19 04:29] LABS: ALBUMIN 2.5 GM/DL (3.2-5.2); ALT/SGPT 78 U/L (12-78); BILIRUBIN,DIRECT 0.4 MG/DL (0.0-0.2); BILIRUBIN,TOTAL 1.1 MG/DL (0.2-1.0); CK-MB VALUE MASS < 1.0 NG/ML (<3.6); CPK CREATINE PHOSPHOKINASE 35 U/L (39-308); LIPASE 43 U/L (73-393); MB/CK RELATIVE INDEX 2.86 (< OR =4); TOTAL PROTEIN 7.2 GM/DL (6.4-8.2); TROPONIN I < 0.02 NG/ML (< 0.10)
[2019-10-19] MEDS ORDERED: PIPERACILLIN/TAZOBACTAM SOD 3.375 GM in D5W MINI-BAG PLUS 50 ML IV ONE (06:00)
[2019-10-19] MEDS ORDERED: KETOROLAC 30 MG/ML VIAL (J1885) IV ONE (06:00)
[2019-10-19] MEDS ORDERED: CARV12.5 PO (06:14)
[2019-10-19] MEDS ORDERED: ELIQ5TAB PO (06:14)
[2019-10-19] MEDS ORDERED: XALA0.007 OU (06:14)
[2019-10-19] MEDS ORDERED: DOCU100C17 PO (06:14)
[2019-10-19] MEDS ORDERED: VITMTA PO (06:14)
[2019-10-19] MEDS ORDERED: METH750T2 PO (06:14)
[2019-10-19] MEDS ORDERED: ACETAMINOPHEN TAB 650MG DOSE (2X325MG) PO PRN (08:00)
[2019-10-19] MEDS ORDERED: methocarbamoL 750 MG TAB PO PRN (08:15)
[2019-10-19] MEDS ORDERED: MIRALAX *UNIT DOSE* 17GM PACKET PO PRN (08:15)
--- NOTE | 2019-10-19 08:34 | ECGEPIP ---
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
[2019-10-19] MEDS: NS 1,000 ML IV SCH ×2 (08:51→19:54)
[2019-10-19] MEDS: DOCUSATE SODIUM 100 MG CAP PO SCH ×3 (09:00→20:01)
[2019-10-19] MEDS ORDERED: APIXABAN 5 MG TAB (ELIQUIS) PO SCH (09:00)
[2019-10-19] MEDS: ASPIRIN 325 MG TAB PO SCH (10:05)
[2019-10-19] MEDS: buPROPion **XL** TABLET 150MG (WELLBUTRIN XL) PO SCH (10:05)
[2019-10-19] MEDS: GABAPENTIN 300 MG CAP PO SCH ×3 (10:05→21:36)
[2019-10-19] MEDS: MULTIVITAMINS/MINERALS THERAP 1 TAB PO SCH (10:06)
[2019-10-19] MEDS: THIAMINE 100 MG TAB PO SCH (10:06)
[2019-10-19] MEDS: CARVedilol 12.5 MG TAB PO SCH ×2 (10:07→21:35)
[2019-10-19] MEDS: TIMOLOL MALEATE 0.5% OPHTH SOLN 5 ML OU SCH (11:05)
--- NOTE | 2019-10-19 11:54 | REP ---
REASON FOR EXAM: Followup. COMPARISON: A contrast enhanced examination earlier today at 3:24 a.m. and an noncontrast-enhanced examination of 10/03/2019 at 8:06 a.m. There is no significant change in the appearance of the lung bases when today's exam is compared to the examination obtained earlier today. A few scattered round glass opacities are seen likely secondary to subsegmental atelectatic changes. These are without focality. No pleural or pericardial effusions have developed. Evaluation of the solid intra-abdominal organs show no changes from the exam done earlier today. There is no change in the appearance of the gallbladder, pancreas, or adrenal glands. There is some increased density in the dependent portion of the gallbladder consistent with a vicarious excretion of the previously injected intravenous contrast. In addition, the kidneys continue to excrete contrast material and a small amount of opacification is seen in the renal collecting system bilaterally. There is no significant change in the appearance of the abdominal aorta or para-aortic regions. The soft tissue mass density surrounding previous coiling procedure performed for embolization is completely unchanged from earlier today. I cannot assess for the possibility of extravasation of contrast material since no contrast material was administered for the exam I am interpreting. There is no significant change in the appearance of the bowel loops or their mesenteries. I see no evidence of intestinal obstruction. There is no evidence of free intraperitoneal air. The urinary bladder is better opacified today showing multiple posterior urinary bladder diverticula. There is no change in the osseous structures. IMPRESSION: Although the examinations are technically different, as described above, there has been no significant change as described above with some exam limitations. Electronically Signed by Mckay Florence DO 10/19/2019 02:41 P
--- NOTE | 2019-10-19 11:59 | IRINPTCON ---
[facility] IR Inpatient Consultation IR Inpatient Consultation DATE: Oct 19, 2019 [facility] IR Consult Office Visit Patient Name: Leoncio Toribio Unit Number: [id number] Date of : 1960 Patient Status: Admitted Inpatient Attending Doctor: Dayana Clayton MD [facility] IR Consult Office Visit [facility] IR Consult Office Visit IR Consult Office Visit DATE: Oct 19, 2019 REASON FOR CONSULTATION/CHIEF COMPLAINT: Abdominal pain. HISTORY OF PRESENT ILLNESS: 58-year-old male status post abdominal SMA branch pseudoaneurysm embolizations couple of weeks ago, presented to the hospital midnight last night with left-sided abdominal pain. Patient states he was sleeping and then woke up suddenly at 12:00 with a sharp pain in the left side of the abdomen which radiated across. No associated nausea or vomiting. The pain was constant and not colicky. The pain continued until he was admitted to the hospital and given morphine. No nausea vomiting. No pain in the last couple of weeks. No fevers or chills. He denies hematemesis or melena. No dizziness. ALLERGIES: Please see below. HOME MEDICATIONS: Please see below. PAST MEDICAL HISTORY: Hypertension Coronary artery disease status post cardiac stent in 2011 2 strokes most recent July 2019. Upper and lower GI infection Lumbar radiculopathy Paroxysmal atrial fibrillation PAST SURGICAL HISTORY: SMA pseudoaneurysm coiling Right shoulder repair Cardiac stent placement 2011 FAMILY HISTORY: Noncontributory SOCIAL HISTORY: Former smoker, smoked for 30 years. Quit in July 2019. Occasional alcohol. Marijuana. REVIEW OF SYSTEMS: Otherwise negative PHYSICAL EXAMINATION: VITAL SIGNS: Please see below. GENERAL APPEARANCE: Appears well. Comfortable at rest. HEENT: No scleral icterus. RESPIRATORY: Normal breathing at rest. CARDIOVASCULAR: Normal rate. Systolic murmur. ABDOMEN: Nondistended. Soft. Nontender and no rebound or guarding. EXTREMITIES: No pedal edema. NEUROLOGICAL: Alert and oriented. PSYCHIATRIC: Appropriate to circumstance. LABORATORY DATA: 10/19/2019 hemoglobin 8.9 (stable from 10/05/2019) hematocrit 26.4 WBC 10.4 platelets 199 bilirubin 1.1 AST 51 ALT 78 ALP 92 lipase 43 INR 1.64 Imaging: I personally reviewed the CT angiogram abdomen pelvis as well as the follow-up CT without contrast performed on 10/19/2019. There is streak artifact in the mid abdomen from pseudoaneurysm coiling without Cynthia pseudoaneurysmal active extravasation when compared to the noncontrast study obtained same day. However, on the CTA there appears to be contrast in the bowel which is not there on the follow-up noncontrast images. There is inflammation around the prior hematoma. 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 On the CTA abdomen, there is contrast in the bowel which is not there on the non con. While patient is not giving the history or signs of someone who has a fistula to bowel, I would get a gastroenterology consultation and/or endoscopy if appropriate and/or pill capsule endoscopy if appropriate. Continue antibiotics and IV fluids. I spent 30 minutes in consultation with the patient. Thank you for this referral. Allergies Coded Allergies: No Known Allergies (Unverified , 02/14/19) Home Medications Scheduled Apixaban (Eliquis), 5 MG PO BID, (Reported) Aspirin (Aspirin), 325 MG PO DAILY, (Reported) Atorvastatin Calcium (Atorvastatin Calcium), 40 MG PO QHS, (Reported) Bupropion HCl (Bupropion Xl), 300 MG PO DAILY, (Reported) Carvedilol (Carvedilol), 12.5 MG PO BID, (Reported) Docusate Sodium (Docusate Sodium), 100 MG PO TID, (Reported) Gabapentin (Gabapentin), 300 MG PO TID, (Reported) Latanoprost (Xalatan), 1 DROP OU QHS, (Reported) Multivitamins (Thera M Plus Tablet), 1 TAB PO DAILY, (Reported) Thiamine Mononitrate (Vit B1) (Vitamin B-1), 100 MG PO DAILY, (Reported) Timolol Maleate (Timolol Maleate), 1 DROP OU DAILY, (Reported) Scheduled PRN Methocarbamol (Methocarbamol), 750 MG PO BID PRN for MUSCLE SPASMS, (Reported) Polyethylene Glycol 3350 (Miralax), 17 GM PO BID PRN for CONSTIPATION, (Reported) Discontinued Medications Apixaban (Eliquis), 5 MG PO BID Discontinued Reason: Re-entering as new Carvedilol (Carvedilol), 3.125 MG PO BID Discontinued Reason: Re-entering as new Latanoprost/Pf (Latanoprost 0.005% Eye Drop), 1 DROP OU QHS, (Reported) Discontinued Reason: Prescription changed Multivitamin (Multivitamins), 1 TAB PO DAILY, (Reported) Discontinued Reason: Prescription changed Tamsulosin Hcl (Tamsulosin HCl), 0.4 MG PO QHS, (Reported) Discontinued Reason: Pt states not taking VS, I&O, 24H, Fishbone VS, I&O, 24H, Fishbone Vital Signs/I&O Vital Signs Date Time Temp Pulse Resp B/P (MAP) Pulse Ox O2 Delivery O2 Flow Rate FiO2 10/19/19 10:07 87 100/68 10/19/19 09:30 96.6 18 94 Room Air 10/19/19 06:18 2.0 Laboratory Data 24H LABS Laboratory Tests 2 10/19/19 03:18: 10/19/19 03:19: Prothrombin Time 19.2H, Prothromb Time International Ratio 1.64, Activated Partial Thromboplast Time 42.6H, Lactic Acid Level 1.9 10/19/19 03:20: Immature Granulocyte % (Auto) 0.5, Neutrophils (%) (Auto) 69.9H, Lymphocytes (%) (Auto) 19.5L, Monocytes (%) (Auto) 9.2H, Eosinophils (%) (Auto) 0.6, Basophils (%) (Auto) 0.3, Neutrophils # (Auto) 7.3, Lymphocytes # (Auto) 2.0, Monocytes # (Auto) 1.0H, Eosinophils # (Auto) 0.1, Basophils # (Auto) 0.0, Nucleated Red Blood Cells % (auto) 0.0, Total Bilirubin 1.1H, Direct Bilirubin 0.4H, Aspartate Amino Transf (AST/SGOT) 51H, Alanine Aminotransferase (ALT/SGPT) 78, Alkaline Phosphatase 92, Total Creatine Kinase 35L, Creatine Kinase MB < 1.0, Creatine Kinase MB Relative Index 2.86, Troponin I < 0.02, Total Protein 7.2, Albumin 2 .5L, Albumin/Globulin Ratio 0.53L, Lipase 43L 10/19/19 03:34: POC Glucose (Misc Panel) 135H, POC Sodium (Misc Panel) 134L, POC Potassium (Misc Panel) 4.5, POC Chloride (Misc Panel) 100, POC Total CO2 (Misc Panel) 24.0, POC Blood Urea Nitrogen (Misc Panel 12, POC Ionized Calcium (Misc Panel) 4.2L, POC Creatinine (Misc Panel) 1.3, POC Hematocrit (Misc Panel) 28.0L 10/19/19 05:44: Urine Color YELLOW, Urine Appearance CLEAR, Urine pH 6.0, Urine Specific [place] 1.053, Urine Protein NEGATIVE, Urine Glucose (UA) NEGATIVE, Urine Ketones TRACEH, Urine Blood 3+H, Urine Nitrite NEGATIVE, Urine Bilirubin NEGATIVE, Urine Urobilinogen 0.2, Urine Leukocyte Esterase NEGATIVE, Urine WBC (Auto) 1, Urine RBC (Auto) 108H, Urine Hyaline Casts (Auto) 0, Urine Bacteria (Auto) NEGATIVE, Urine Squamous Epithelial Cells 0, Urine Sperm (Auto) CBC/BMP Laboratory Tests 10/19/19 03:20 Microbiology Microbiology 10/19/19 Blood Culture, Received Pending 10/19/19 Blood Culture, Received Pending RAUL SALMON MD Oct 19, 2019 11:57 Allergies Coded Allergies: No Known Allergies (Unverified , 02/14/19) Home Medications Scheduled Apixaban (Eliquis), 5 MG PO BID, (Reported) Aspirin (Aspirin), 325 MG PO DAILY, (Reported) Atorvastatin Calcium (Atorvastatin Calcium), 40 MG PO QHS, (Reported) Bupropion HCl (Bupropion Xl), 300 MG PO DAILY, (Reported) Carvedilol (Carvedilol), 12.5 MG PO BID, (Reported) Docusate Sodium (Docusate Sodium), 100 MG PO TID, (Reported) Gabapentin (Gabapentin), 300 MG PO TID, (Reported) Latanoprost (Xalatan), 1 DROP OU QHS, (Reported) Multivitamins (Thera M Plus Tablet), 1 TAB PO DAILY, (Reported) Thiamine Mononitrate (Vit B1) (Vitamin B-1), 100 MG PO DAILY, (Reported) Timolol Maleate (Timolol Maleate), 1 DROP OU DAILY, (Reported) Scheduled PRN Methocarbamol (Methocarbamol), 750 MG PO BID PRN for MUSCLE SPASMS, (Reported) Polyethylene Glycol 3350 (Miralax), 17 GM PO BID PRN for CONSTIPATION, (Reported) Discontinued Medications Apixaban (Eliquis), 5 MG PO BID Discontinued Reason: Re-entering as new Carvedilol (Carvedilol), 3.125 MG PO BID Discontinued Reason: Re-entering as new Latanoprost/Pf (Latanoprost 0.005% Eye Drop), 1 DROP OU QHS, (Reported) Discontinued Reason: Prescription changed Multivitamin (Multivitamins), 1 TAB PO DAILY, (Reported) Discontinued Reason: Prescription changed Tamsulosin Hcl (Tamsulosin HCl), 0.4 MG PO QHS, (Reported) Discontinued Reason: Pt states not taking VS, I&O, 24H, Fishbone Vital Signs/I&O Vital Signs Date Time Temp Pulse Resp B/P (MAP) Pulse Ox O2 Delivery O2 Flow Rate FiO2 10/19/19 10:07 87 100/68 10/19/19 09:30 96.6 18 94 Room Air 10/19/19 06:18 2.0 Laboratory Data 24H LABS Laboratory Tests 2 10/19/19 03:18: 10/19/19 03:19: Prothrombin Time 19.2H, Prothromb Time International Ratio 1.64, Activated Partial Thromboplast Time 42.6H, Lactic Acid Level 1.9 10/19/19 03:20: Immature Granulocyte % (Auto) 0.5, Neutrophils (%) (Auto) 69.9H, Lymphocytes (%) (Auto) 19.5L, Monocytes (%) (Auto) 9.2H, Eosinophils (%) (Auto) 0.6, Basophils (%) (Auto) 0.3, Neutrophils # (Auto) 7.3, Lymphocytes # (Auto) 2.0, Monocytes # (Auto) 1.0H, Eosinophils # (Auto) 0.1, Basophils # (Auto) 0.0, Nucleated Red Blood Cells % (auto) 0.0, Total Bilirubin 1.1H, Direct Bilirubin 0.4H, Aspartate Amino Transf (AST/SGOT) 51H, Alanine Aminotransferase (ALT/SGPT) 78, Alkaline Phosphatase 92, Total Creatine Kinase 35L, Creatine Kinase MB < 1.0, Creatine Kinase MB Relative Index 2.86, Troponin I < 0.02, Total Protein 7.2, Albumin 2.5L, Albumin/Globulin Ratio 0.53L, Lipase 43L 3/26/20 03:34: POC Glucose (Misc Panel) 135H, POC Sodium (Misc Panel) 134L, POC Potassium (Misc Panel) 4.5, POC Chloride (Misc Panel) 100, POC Total CO2 (Misc Panel) 24.0, POC Blood Urea Nitrogen (Misc Panel 12, POC Ionized Calcium (Misc Panel) 4.2L, POC Creatinine (Misc Panel) 1.3, POC Hematocrit (Misc Panel) 28.0L 10/19/19 05:44: Urine Color YELLOW, Urine Appearance CLEAR, Urine pH 6.0, Urine Specific [place] 1.053, Urine Protein NEGATIVE, Urine Glucose (UA) NEGATIVE, Urine Ketones TRACEH, Urine Blood 3+H, Urine Nitrite NEGATIVE, Urine Bilirubin NEGATIVE, Urine Urobilinogen 0.2, Urine Leukocyte Esterase NEGATIVE, Urine WBC (Auto) 1, Urine RBC (Auto) 108H, Urine Hyaline Casts (Auto) 0, Urine Bacteria (Auto) NEGATIVE, Urine Squamous Epithelial Cells 0, Urine Sperm (Auto) CBC/BMP Laboratory Tests 10/19/19 03:20 Microbiology Microbiology 10/19/19 Blood Culture, Received Pending 10/19/19 Blood Culture, Received Pending RAUL SALMON MD Oct 19, 2019 11:59
[2019-10-19 12:40] LABS: HEMATOCRIT 23.4 % (42.0-52.0); HEMOGLOBIN 7.8 g/dl (13.5-17.5)
[2019-10-19] MEDS: PIPERACILLIN/TAZOBACTAM SOD 3.375 GM in D5W MINI-BAG PLUS 50 ML IV SCH ×2 (12:56→19:54)
--- NOTE | 2019-10-19 14:21 | HPEPDOC ---
General Date of Admission Oct 19, 2019 at 07:59 Date of Service: Oct 19, 2019 Chief Complaint The patient is a 58-year-old male Who presented to the emergency room with complaints of abdominal discomfort History of Present Illness Patient is a 58-year-old male with a PMHx of HTN, CAD s/p stent (2011), Paroxysmal A. 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 Patient was recently hospitalist for abdominal pain and was found to have an SMA aneurysm that was coiled by interventional radiology. Patient reports that since his discharge 2 weeks ago he has been having intermittent abdominal discomfort, associated with constipation and diarrhea. Yesterday he began to notice worsening abdominal pain, reported asa 10/10, sharp like nature, radiating from LUQ to RLQ. Reported some alleviation with pain medications, reported worsening with movement. Reports that at home he has had chills, denies any fevers (reported temperatures of 95.7). Denies any N/V. Reports that his diet consists of mostly jello, soup and sandwiches. Patient denies any CP, SOB or palpitations. He notes that he has had some weight loss of approximately 15 lbs over the last 1.5 months. Home Medications Scheduled Apixaban (Eliquis) 5 Mg Tablet, 5 MG PO BID, (Reported) Aspirin (Aspirin) 325 Mg Tablet, 325 MG PO DAILY, (Reported) Atorvastatin Calcium (Atorvastatin Calcium) 40 Mg Tablet, 40 MG PO QHS, (Reported) Bupropion HCl (Bupropion Xl) 300 Mg Tab, 300 MG PO DAILY, (Reported) Carvedilol (Carvedilol) 12.5 Mg Tablet, 12.5 MG PO BID, (Reported) Docusate Sodium (Docusate Sodium) 100 Mg Capsule, 100 MG PO TID, (Reported) Gabapentin (Gabapentin) 300 Mg Cap, 300 MG PO TID, (Reported) Latanoprost (Xalatan) 0.005% 2.5ML Drops, 1 DROP OU QHS, (Reported) Multivitamins (Thera M Plus Tablet) 1 Each Tablet, 1 TAB PO DAILY, (Reported) Thiamine Mononitrate (Vit B1) (Vitamin B-1) 100 Mg Tablet, 100 MG PO DAILY, (Reported) Timolol Maleate (Timolol Maleate) 0.5% 5ML Drops, 1 DROP OU DAILY, (Reported) Scheduled PRN Methocarbamol (Methocarbamol) 750 Mg Tablet, 750 MG PO BID PRN for MUSCLE SPASMS, (Reported) Polyethylene Glycol 3350 (Miralax) 17 Gm Powd.pack, 17 GM PO BID PRN for CONSTIPATION, (Reported) Allergies Coded Allergies: No Known Allergies (Unverified , 02/14/19) Past Medical History Medical History HTN, CAD s/p stent (2011), Paroxysmal A. 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) Surgical History R shoulder repair Cardiac stent placement 2011 Carpal tunnel release SMA aneurysm coiling Family History - Father with a history of esophageal CA Social History - Seldom uses alcohol, quit smoking 07/2019, but was a smoker of 35 years at 0.5- 1ppd, Uses marijuana 2-3 times per week - Denies recent travel or sick contacts Review of Systems Other systems 10 point review of systems complete, all negative otherwise stated in HPI Vital Signs - Vitals: BP 106/58, HR 100, RR 20, Sat 94%NC2L, Temp 97.5F - General: Lying in bed, Speaking in full sentences, AAOx3 - HEENT: NC, AT, PERRLA - CVS: RRR, +S1S2 - Lungs: Fair air entry bilaterally, No appreciable wheezing / rales / rhonchi - Abdomen: Soft, Non-distended, Mild tenderness at LUQ - Rectal exam: External hemorrhoids noted, light brown stool noted, sample sent to lab - Extremities: No lower extremity edema, No calf tenderness - Neuro: No focal motor or sensory deficit - Skin: No visible rashes Laboratory Data Labs 24H Laboratory Tests 2 10/19/19 03:18: 10/19/19 03:19: Prothrombin Time 19.2H, Prothromb Time International Ratio 1.64, Activated Partial Thromboplast Time 42.6H, Lactic Acid Level 1.9 10/19/19 03:20: Immature Granulocyte % (Auto) 0.5, Neutrophils (%) (Auto) 69.9H, Lymphocytes (%) (Auto) 19.5L, Monocytes (%) (Auto) 9.2H, Eosinophils (%) (Auto) 0.6, Basophils (%) (Auto) 0.3, Neutrophils # (Auto) 7.3, Lymphocytes # (Auto) 2.0, Monocytes # (Auto) 1.0H, Eosinophils # (Auto) 0.1, Basophils # (Auto) 0.0, Nucleated Red Blood Cells % (auto) 0.0, Total Bilirubin 1.1H, Direct Bilirubin 0.4H, Aspartate Amino Transf (AST/SGOT) 51H, Alanine Aminotransferase (ALT/SGPT) 78, Alkaline Phosphatase 92, Total Creatine Kinase 35L, Creatine Kinase MB < 1.0, Creatine Kinase MB Relative Index 2.86, Troponin I < 0.02, Total Protein 7.2, Albumin 2.5L, Albumin/Globulin Ratio 0.53L, Lipase 43L 10/19/19 03:34: POC Glucose (Misc Panel) 135H, POC Sodium (Misc Panel) 134L, POC Potassium (Misc Panel) 4.5, POC Chloride (Misc Panel) 100, POC Total CO2 (Misc Panel) 24.0, POC Blood Urea Nitrogen (Misc Panel 12, POC Ionized Calcium (Misc Panel) 4.2L, POC Creatinine (Misc Panel) 1.3, POC Hematocrit (Misc Panel) 28.0L 10/19/19 05:44: Urine Color YELLOW, Urine Appearance CLEAR, Urine pH 6.0, Urine Specific [place] 1.053, Urine Protein NEGATIVE, Urine Glucose (UA) NEGATIVE, Urine Ketones TRACEH, Urine Blood 3+H, Urine Nitrite NEGATIVE, Urine Bilirubin NEGATIVE, Urine Urobilinogen 0.2, Urine Leukocyte Esterase NEGATIVE, Urine WBC (Auto) 1, Urine RBC (Auto) 108H, Urine Hyaline Casts (Auto) 0, Urine Bacteria (Auto) NEGATIVE, Urine Squamous Epithelial Cells 0, Urine Sperm (Auto) 10/19/19 13:49: CBC/BMP Laboratory Tests 10/19/19 03:20 10/19/19 12:02 Microbiology Microbiology 10/19/19 Blood Culture, Received Pending 10/19/19 Blood Culture, Received Pending Plan / VTE VTE Prophylaxis Ordered?: Yes Plan Plan Abdominal pain - possibly 2/2 inflammation around SMA aneurysm, less likely 2/2 bleeding - Presented to the ER with worsening abdominal discomfort - Hx of SMA aneurysm; s/p stenting 10/03/2019 - Currently patient appears comfortable with improvement of pain, no N/V - Physical with LUQ tenderness, rectal exams with external hemorrhoids and no dark stool - Occult blood pending - Mild leukocytosis, No lactic acidosis - CTA abdomen 10/18: 1. Interval embolization of mesenteric aneurysms. Probable small hematoma in the left lower abdominal abdominal mesentery containing several embolization coils. Nodular area of hyperattenuation adjacent to the embolization material may be continued contrast extravasation but evaluation is limited by streak artifacts from adjacent embolization material. 2. Hyperattenuating intraluminal fluid or contrast in the small bowel and cecum distal to the area of mesenteric embolization. If there has not been recent oral contrast administration, findings may indicate intraluminal contrast extravasation into the small bowel. If there is active lower GI bleeding, nuclear medicine tagged red blood cell scan may be helpful for confirmation. 3. No other arterial contrast extravasation. No aneurysm common common or flow-odonnell iting stenosis. 4. Stable appearance of other incidental findings as above. - CT abdomen / pelvis without contrast 10/18: Although the examinations are technically different, as described above, there has been no significant change as described above with some exam limitations. - Interventional radiology on consultation; appreciate their input - case has been discussed does not appear to have extravasation - Blood cultures pending - Will c/w IV fluids and start broad-spectrum antibiotics for intra-abdominal coverage Normocytic anemia / Symptomatic anemia - Clinically patient has reported fatigue more than usual over the last several weeks - Baseline Hg of approximately 12 - Will check iron panel - Stool for occult blood pending - Hg currently at 8.9; repeat is 7.8; will transfuse 2 units of PRBC Elevated Cr / SHONDA - possibly 2/2 pre-renal etiology - Baseline Cr of 0.7; Cr currently of 1.3 - Will c/w IV fluid hydration and provide 2 units of blood HTN - c/w Carvedilol with holding parameters CAD s/p stent (2011) - c/w ASA Paroxysmal A. fib - c/w rate control with carvedilol - Will hold anticoagulation with Eliquis Hx of CVA x 2 - Most recent 07/2019 - c/w ASA and Atorvastatin Hx of Splenic infarcts Lumbar radiculopathy - c/w Gabapentin Depression - c/w Bupropion DVT prophylaxis - Will start TEDs/Sequentials - Hold SUBHASH Benton MD Oct 19, 2019 14:21
[2019-10-19 14:43] LABS: PERCENT SATURATION 23.4 % (19.7-50.0)
[2019-10-19] MEDS: LATANOPROST 0.005% OPHTH SOLN 2.5 ML OU SCH (21:00)
[2019-10-19] MEDS: ATORVASTATIN 20 MG TAB PO SCH (21:36)
[2019-10-19] MEDS ORDERED: VANCOMYCIN HCL 1,000 MG, VIAL MATE ADAPTER 1 EACH in D5W 250 ML IV ONE (23:45)
[2019-10-20] VITALS (8 sets, daily range): BP systolic 101–148; BP diastolic 64–84
[2019-10-20] MEDS ORDERED: VANCOMYCIN HCL 1,000 MG in IV FLUID PLACE HOLDER 1 EA IV ONE ×2
[2019-10-20 00:53] LABS: HEMATOCRIT 25.8 % (42.0-52.0); HEMOGLOBIN 8.7 g/dl (13.5-17.5)
[2019-10-20] MEDS: PIPERACILLIN/TAZOBACTAM SOD 3.375 GM in D5W MINI-BAG PLUS 50 ML IV SCH ×3 (01:21→11:32)
[2019-10-20 06:05] LABS: BASO % 0.3 % (0.0-1.0); EOS # 0.1 10^3/uL (0.0-0.5); EOS % 1.5 % (0.0-3.0); HEMATOCRIT 26.6 % (42.0-52.0); HEMOGLOBIN 9.1 g/dl (13.5-17.5); LYMPH # 1.3 10^3/uL (1.5-5.0); LYMPH % 21.6 % (24.0-44.0); MEAN CORPUSCULAR HEMOGLOBIN 31.8 pg (27.0-33.0); MEAN CORPUSCULAR HGB CONC 34.2 g/dl (32.0-36.5); MONO # 0.5 10^3/uL (0.0-0.8); MONO % 8.8 % (0.0-5.0); NEUTROPHILS # 4.2 10^3/uL (1.5-8.5); NEUTROPHILS % 67.3 % (36.0-66.0); PLATELET COUNT, AUTOMATED 141 10^3/uL (150-450); RED BLOOD COUNT 2.86 10^6/uL (4.30-6.10); WHITE BLOOD COUNT 6.2 10^3/uL (4.0-10.0)
[2019-10-20 06:31] LABS: BLOOD UREA NITROGEN 9 MG/DL (7-18); CARBON DIOXIDE LEVEL 24 MEQ/L (21-32); CHLORIDE LEVEL 107 MEQ/L (98-107); CREATININE FOR GFR 1.14 MG/DL (0.70-1.30); GLOMERULAR FILTRATION RATE > 60.0 (>56); GLUCOSE, FASTING 85 MG/DL (70-100); MAGNESIUM LEVEL 2.3 MG/DL (1.8-2.4); POTASSIUM SERUM 3.8 MEQ/L (3.5-5.1); SODIUM LEVEL 139 MEQ/L (136-145)
[2019-10-20] MEDS ORDERED: VANCOMYCIN HCL 1,000 MG, VIAL MATE ADAPTER 1 EACH in D5W 250 ML IV SCH (07:45)
[2019-10-20 08:17] LABS: C REACTIVE PROTEIN QUANTITATIV 4.85 MG/DL (0.00-0.30)
[2019-10-20] MEDS ORDERED: VANCOMYCIN HCL 750 MG, VIAL MATE ADAPTER 1 EACH in D5W 250 ML IV ONE (09:00)
[2019-10-20] MEDS ORDERED: APIXABAN 5 MG TAB (ELIQUIS) PO SCH (09:00)
--- NOTE | 2019-10-20 09:04 | REP ---
Chest x-ray: Two views. History: Shortness of breath. Hypoxia. Comparison chest x-ray: August 10, 2019. Findings: There is a new fairly dense infiltrate in the right lower lobe, superior segment . This consistent with pneumonia. Pleural angles are sharp. Interstitial markings remain slightly prominent diffusely. Heart is not enlarged. Pleural angles are sharp. No bony abnormalities seen. Impression: New infiltrate in the superior aspect of the right lower lobe consistent with pneumonia. Electronically Signed by Bobby Strauss MD 10/20/2019 08:55 A
[2019-10-20 09:07] LABS: ERYTHROCYTE SEDIMENTATION RATE 73 mm/hr (0-20)
--- NOTE | 2019-10-20 09:16 | PHACANCOPD ---
PHARMACY VANCOMYCIN DOSING Pt Demographics Demographics Patient Age:58 , Weight:65.600 , Gender: male Adjusted Body Weight Date: 10/20/19, Adjusted Body Weight: Kg Vancomycin Vancomycin Target Ranges: 15-20 mcg/ml Vancomycin Load Y/N: Yes Load Dose Date Time Vancomycin Load Dose: 1 GM @ 0100, 1 GM @0900 Date: 10/20/19 Time: Vancomycin Dose Date: 10/20/19. Current Vancomycin Dose: [1 GM IV Q12H] Intermittent Dosing?: No Labs Micro Microbiology 10/20/19 Blood Culture, Received Pending 10/19/19 Stool Occult Blood ([facility]) - Final, Complete 10/19/19 Blood Culture - Preliminary, Resulted 10/19/19 Blood Culture - Preliminary, Resulted Creatinine Clearance Date:10/20/19. Creatinine Clearance: . Assessment and Plan Maintaining Current Dose?: Yes Reason for dose change: Other Pharmacist Note Pharmacist Note Date: 10/20/19. Pharmacist note: Pharmacy consulted for Vancomycin dosing for preliminary BC x 2 gram + cocci in pairs, chains, and clusters with a goal trough of 15-20 mcg/ml. There is no history of Vanco here at [facility]. Patients WBC is actually improved from yesterday and the patient has been afebrile, he is also receiving Zosyn 3.375 gm q6h. He was given 1 gram @ 0100, we'll give him another gram @ 0900 and follow with 1 gram q12h. Pharmacy will continue to monitor and make adjustments as needed. [facility] Oct 20, 2019 09:16
[2019-10-20] MEDS: MULTIVITAMINS/MINERALS THERAP 1 TAB PO SCH (09:33)
[2019-10-20] MEDS: buPROPion **XL** TABLET 150MG (WELLBUTRIN XL) PO SCH (09:33)
[2019-10-20] MEDS: CARVedilol 12.5 MG TAB PO SCH ×2 (09:33→20:36)
[2019-10-20] MEDS: TIMOLOL MALEATE 0.5% OPHTH SOLN 5 ML OU SCH (09:34)
[2019-10-20] MEDS: VANCOMYCIN HCL 1,000 MG, VIAL MATE ADAPTER 1 EACH in D5W 250 ML IV SCH ×2 (09:34→21:24)
[2019-10-20] MEDS: ASPIRIN 325 MG TAB PO SCH (09:34)
[2019-10-20] MEDS: GABAPENTIN 300 MG CAP PO SCH ×3 (09:34→20:36)
[2019-10-20] MEDS: THIAMINE 100 MG TAB PO SCH (09:34)
[2019-10-20] MEDS: DOCUSATE SODIUM 100 MG CAP PO SCH ×3 (09:34→20:36)
[2019-10-20] MEDS ORDERED: VANCOMYCIN HCL 500 MG in D5W MINI-BAG PLUS 100 ML IV ONE (10:00)
--- NOTE | 2019-10-20 10:29 | CR ---
INFECTIOUS DISEASE CONSULTATION DATE OF CONSULTATION: 10/20/2019 REQUESTING PHYSICIAN: Dr. Clayton REASON FOR CONSULT: bacteremia of gram positive cocci in chains, clusters, and pairs HISTORY OF PRESENT ILLNESS: Mr. Toribio is a 58-year-old gentleman with notable history of recurrent UTIs with E. 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 He presented for acute sharp left abdominal pain that woke him up from his sleep. He reports the pain is worst near where the stent is. He has been afebrile and states today that he has minimal abdominal pain and is feeling better than his normal baseline. He is tolerating clear liquids well and denies any nausea, vomiting or blood loss. He denies melena, hematochezia. He has new onset constipation for 1 month, he does report a 15 pound unintentional weight loss in the past 6 months with decreased appetite, subjective fevers, chills, night sweats also during that time frame. We have been consulted due to positive preliminary blood cultures revealing gram positive cocci in pairs, chains and clusters. He had no cough, chest pain, pleurisy, his abdominal pain comes and goes PAST MEDICAL HISTORY: 1. Osteoarthritis. 2. CAD status post one stent in 2009. 3. CVA July 2019. 4. Paroxysmal atrial fibrillation on Eliquis. 5. Depression. 6. constipation was being scheduled for EGD/ Colonoscopy with Dr Hodge 7. Grade 1 diastolic dysfunction. 8. Lumbar spondylosis with radiculopathy. 9. Anemia of chronic disease and iron deficiency. 10. Benign prostatic hypertrophy (BPH). 11. 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 History of superior mesenteric aneurysm S/P coiling. 13. Recurrent urinary tract infections with E. faecalisx2 / Stah epidermidis ALLERGIES: None per patient. FAMILY HISTORY: Mother is alive with coronary artery disease. Father is , had a history of esophageal cancer and was on hemodialysis. SOCIAL HISTORY: Smoked 1/2 pack a day for 35 years, quit in July 2019. Drinks occasional beer each night. Admits to smoking marijuana. Denies any history of illicit substance use or any IV drug use. Lives at home with his . He is self employed and works in construction. SURGICAL HISTORY: Left carpal tunnel release. Heart catheterization with stent in 05/2010. Right shoulder rotator cuff repair. Spinal laminectomy, facetectomy and foraminotomies in 2017. Left abdominal aneurysm coil in September 2019. CURRENT INPATIENT MEDICATIONS: - sodium chloride 120 mL/hr - Tylenol 650 mg by mouth every 4 hours - MiraLAX one packet by mouth twice a day p.r.n. - methocarbamol 750 mg by mouth twice a day p.r.n. - timolol eye drops daily - thiamine 100 mg by mouth daily - multivitamin one tab by mouth daily - gabapentin 300 mg by mouth three times a day - Colace 100 mg by mouth three times a day - Coreg 12.5 mg by mouth twice a day - bupropion HCl 300 mg by mouth daily - aspirin 325 mg by mouth daily - Eliquis 5 mg by mouth twice a day - Zosyn 3.375 grams IV every 6 hours, currently day two - latanoprost eye drops at bedtime - Lipitor 40 mg by mouth at bedtime - vancomycin 1 gram IV, currently day one REVIEW OF SYSTEMS: He admits to subjective fever, chills and weakness the night of his abdominal pain. Currently is resolved. Admits to 15lb unintentional weight loss and night sweats as noted in HPI. Denies any nausea, vomiting, 6 months intermittent abdominal pain,has new constipation x1 month, no diarrhea, melena, hematochezia. Denies any skin rashes or joint swelling. Denies any acute back pain. No headache, blurred vision, dysphagia, odynophagia. Admits to history of BPH, did not tolerate Flomax due to side effects, but denies any recent hematuria, dysuria, urgency or frequency, recurrent UTI. PHYSICAL EXAMINATION: Vitals: Temperature 97.1, T-max 98, pulse 92, respirations 18, blood pressure 132/68, MAP 89, pulse oximetry 97% on room air. He is sitting up comfortably in his chair in no acute distress, fully alert and oriented. Head: Normocephalic, atraumatic. Moist mucous membranes. Poor dentition. Neck supple. Heart: Normal S1-2 Regular rate and rhythm with a 3/6 systolic murmur radiating to the axilla, no rubs or gallops Lungs: Mild rhonchi at bilateral bases, no wheezing or rales. No accessory muscle use. No respiratory distress. Abdomen: Soft. Mildly tender to deep palpation periumbilically, otherwise nontender, nondistended. Normoactive bowel sounds. No rebound, guarding or rigidity. No ecchymosis. No spinal tenderness or costovertebral (CVA) tenderness to percussion. No lower extremity edema. 2+ radial and dorsalis pedis (DP) pulses bilaterally. Able to move all extremities. LABORATORY DATA: WBC 6.2 down from 10.4 on admission. Hemoglobin 9.1 and hematocrit 26.6. Status post two unit packed red blood cell (PRBC) transfused for hemoglobin of 7.8. Platelets 141. ESR 73 with a CRP of 4.85. Sodium 139, potassium 3.8. BUN and creatinine 9 and 1.14. Iron and TIBC 36 and 154. Transferrin 145. Ferritin 522. Cardiac markers negative. Procalcitonin 0.25. IMAGING: CTA of the abdomen on admission reveals interval embolization of mesenteric aneurysm and a probable small hematoma in the left lower abdominal mesentery containing several embolization coils. Nodular area of hyperattenuation adjacent to the embolization material. Possible contrast extravasation. CT of the abdomen and pelvis also on 10/19/2019 shows no significant change. No visible suspected bleeding. Chest x-ray today shows new infiltrate in the superior aspect right lower lobe consistent with pneumonia. ASSESSMENT 1-This is a 58-year-old gentleman with 6 months history of abdominal pain, recurrent UTI, CVA 07/2019, new heart murmur with constitutional symptoms of night sweats, chills anorexia and 15 lbs weight loss. Previous imaging consistent with splenic infarcts recent mesenteric ? pseudoaneurysm coils placed on 10/03/19 for bleeding He was readmitted for abdominal pain, found to have preliminary blood cultures revealing gram positive cocci in pairs, chains and clusters. 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 Other possible source of infection would be GI he has new constipation , could be colonic polyp or maligancy. 2-Imaging does note a possible pneumonia in the right lower lobe as well, but less likely given he is asymptomatic, no cough or SOB and it would not explain E. faecalis bacteremia and his prolonged illness. Right lower lobe possible pneumonia currently on zosyn and vancomycin D#2. Recommend incentive spirometry, 3. Anemia, multifactorial. It appears his baseline is 12-13 and has been wavering around 8-9 since he had his abdominal aneurysm intervention two weeks ago. Workup reveals also chronic anemia and iron deficiency. Consider supplementation. Stool for occult blood has been negative. Monitor for bleeding, transfuse as needed. He was going to be scheduled by Dr Hodge for EGD and colonoscopy for new constipation PLAN : I have called Dr Boone to read TTE Stat and if negative to have a RASHAUN done tonight If he has endocarditis from Efecalis he will need to be switched to ampicillin 2 gm IV q4 hours and Rocephin 2 gm IV Q 12hrs. Would continue IV vancomycin until final susceptibilty. Will keep him NPO until ech results available Thank you for the consult. We will continue following along. MTDD
--- NOTE | 2019-10-20 11:22 | IPNPDOC ---
Text Note Date of Service The patient was seen on 10/20/19. NOTE Subjective: Patient is a 58-year-old male with a PMHx of HTN, CAD s/p stent (2011), Paroxysmal A. 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 Patient was recently hospitalist for abdominal pain and was found to have an SMA aneurysm that was coiled by interventional radiology. Patient reports that since his discharge 2 weeks ago he has been having intermittent abdominal discomfort, associated with constipation and diarrhea. Yesterday he began to notice worsening abdominal pain, reported asa 10/10, sharp like nature, radiating from LUQ to RLQ. Reported some alleviation with pain medications, reported worsening with movement. Reports that at home he has had chills, denies any fevers (reported temperatures of 95.7). Denies any N/V. Reports that his diet consists of mostly jello, soup and sandwiches. Patient was admitted to hospitalist service for further evaluation and treatment. Vascular surgery was called on consultation Patient was seen and examined at the bedside. Patient reports that he's feeling significantly better compared to yesterday. Again, he denies any difficulty breathing, productive cough or chest pain. . He has required supplemental oxygen overnight. Patient denies nausea, vomiting, abdominal pain or diarrhea. Has not had any urinary discomfort. Objective: Vitals (See below) General: Lying in bed, no acute distress, comfortable, AAOx3 HEENT: NC, AT CVS: +S1S2 Lungs: Again air entry appears fair. No appreciable wheezing, rhonchi or crackles Abdomen: Abdomen is soft, no distention. Mild tenderness appreciated at left upper quadrant Extremities: Lower, she received her to be free of pitting edema, - Calf tenderness Imaging: - CTA abdomen 10/18: 1. Interval embolization of mesenteric aneurysms. Probable small hematoma in the left lower abdominal abdominal mesentery containing several embolization coils. Nodular area of hyperattenuation adjacent to the embolization material may be continued contrast extravasation but evaluation is limited by streak artifacts from adjacent embolization material. 2. Hyperattenuating intraluminal fluid or contrast in the small bowel and cecum distal to the area of mesenteric embolization. If there has not been recent oral contrast administration, findings may indicate intraluminal contrast extravasation into the small bowel. If there is active lower GI bleeding, nuclear medicine tagged red blood cell scan may be helpful for confirmation. 3. No other arterial contrast extravasation. No aneurysm common common or flow- limiting stenosis. 4. Stable appearance of other incidental findings as above. - CT abdomen / pelvis without contrast 10/18: Although the examinations are technically different, as described above, there has been no significant change as described above with some exam limitations. - CXR 10/19: New infiltrate in the superior aspect of the right lower lobe consistent with pneumonia. Assessment and plan: Abdominal pain - possibly 2/2 inflammation around SMA aneurysm, less likely 2/2 bleeding - Presented to the ER with worsening abdominal discomfort - Hx of SMA aneurysm; s/p stenting 10/03/2019 - Currently patient appears comfortable with improvement of pain, no N/V - Physical with LUQ tenderness, rectal exams with external hemorrhoids and no dark stool - Occult blood negative - Blood cultures 10/18: Gram positive cocci dena/chains/clusters, Repeat blood cultures pending - s/p Leukocytosis, No lactic acidosis - Will get ECHO, trend CRP - Interventional radiology on consultation; appreciate their input - case has been discussed does not appear to have extravasation - Consulted infectious disease; appreciate their input - c/w IV fluids and Zosyn (Day #2); added Vancomycin (Day #1) Hypoxia - possibly 2/2 HCAP? - Does not have SOB, productive cough or fevers - Reported chills - CXR noted above - c/w antibiotics (as listed above) Normocytic anemia - 2/2 AOCD / Iron deficiency / Symptomatic anemia - Clinically patient has reported fatigue more than usual over the last several weeks - Baseline Hg of approximately 12 - Hg improved; however disproportionately lower - possibly 2/2 dilutional etiology from fluids - s/p 2 units PRBC - Stool for occult blood negative - Hg currently at 8.9; repeat is 7.8; Elevated Cr / SHONDA - possibly 2/2 pre-renal etiology - Baseline Cr of 0.7; Cr on admission of 1.3 - Will c/w IV fluids HTN - c/w Carvedilol with holding parameters CAD s/p stent (2011) - c/w ASA Paroxysmal A. fib - c/w rate control with carvedilol - Will resume anticoagulation with Eliquis Hx of CVA x 2 - Most recent 07/2019 - c/w ASA and Atorvastatin Splenic infarcts - possibly 2/2 coagulopathy - Review of hyper coagulability workup reveals + IgM anti cardiolipin antibodies - Will repeat - Resume anticoagulation as stated above Lumbar radiculopathy - c/w Gabapentin Depression - c/w Bupropion DVT prophylaxis - Will start TEDs/Sequentials - Will resume Eliquis VS,Fishbone, I+O VS, Fishbone, I+O Laboratory Tests 10/19/19 12:02 10/20/19 00:48 10/20/19 05:45 Vital Signs Date Time Temp Pulse Resp B/P (MAP) Pulse Ox O2 Delivery O2 Flow Rate FiO2 10/20/19 04:00 97.0 86 16 108/68 (81) 96 Room Air 10/20/19 01:10 2.0 I&O- Last 24 Hours up to 6 AM 10/20/19 06:00 Intake Total 3810 ml Output Total 1100 ml Balance 2710 ml SUBHASH LOPEZ MD Oct 20, 2019 11:22
[2019-10-20] MEDS: NS 1,000 ML IV SCH (12:39)
[2019-10-20] MEDS: ONDANSETRON 4MG/2ML VIAL (J2405) IV PRN (12:44)
[2019-10-20] MEDS: MORPHINE 2 MG/ML 1ML VIAL (J2270) IV PRN (12:45)
[2019-10-20 13:25] LABS: BASO % 0.6 % (0.0-1.0); EOS # 0.1 10^3/uL (0.0-0.5); EOS % 1.5 % (0.0-3.0); HEMATOCRIT 29.3 % (42.0-52.0); HEMOGLOBIN 9.8 g/dl (13.5-17.5); LYMPH # 1.3 10^3/uL (1.5-5.0); LYMPH % 19.7 % (24.0-44.0); MEAN CORPUSCULAR HEMOGLOBIN 31.2 pg (27.0-33.0); MEAN CORPUSCULAR HGB CONC 33.4 g/dl (32.0-36.5); MEAN CORPUSCULAR VOLUME 93.3 fl (80.0-96.0); MONO # 0.6 10^3/uL (0.0-0.8); MONO % 9.1 % (0.0-5.0); NEUTROPHILS # 4.5 10^3/uL (1.5-8.5); NEUTROPHILS % 68.6 % (36.0-66.0); PLATELET COUNT, AUTOMATED 152 10^3/uL (150-450); RED BLOOD COUNT 3.14 10^6/uL (4.30-6.10); WHITE BLOOD COUNT 6.6 10^3/uL (4.0-10.0)
[2019-10-20 13:49] LABS: ALBUMIN 2.2 GM/DL (3.2-5.2); ALT/SGPT 45 U/L (12-78); BILIRUBIN,TOTAL 1.3 MG/DL (0.2-1.0); BLOOD UREA NITROGEN 9 MG/DL (7-18); CALCIUM LEVEL 7.7 MG/DL (8.5-10.1); CARBON DIOXIDE LEVEL 26 MEQ/L (21-32); CHLORIDE LEVEL 107 MEQ/L (98-107); GLOMERULAR FILTRATION RATE > 60.0 (>56); GLUCOSE, FASTING 101 MG/DL (70-100); MAGNESIUM LEVEL 2.2 MG/DL (1.8-2.4); POTASSIUM SERUM 3.8 MEQ/L (3.5-5.1); SODIUM LEVEL 137 MEQ/L (136-145); TOTAL PROTEIN 6.2 GM/DL (6.4-8.2)
--- NOTE | 2019-10-20 14:20 | ECHO ---
DATE OF PROCEDURE: 10/20/2019 INDICATION: Bacteremia REFERRING PHYSICIAN: Dr. Dumont. HEIGHT: 172 cm. WEIGHT: 66 kg. DIMENSIONS: IVS: 0.9 LV: 4.8 LVPW: 0.9 LA: 4.3 Aorta: 3.5 RV: 2.9 Left atrium volume index: 35 IVC: 2.1 Mitral E wave velocity: 162 A wave: 118 E prime septal: 12.6 E prime lateral 10.0 FINDINGS: The study is of good technical quality. The patient is in sinus rhythm. Normal LV size with hyperdynamic LV systolic function, estimated LVEF 65-70%. Right ventricle also normal size and systolic function. Left atrium is at least mildly enlarged. Right atrium is likely normal. Aortic valve is minimally sclerotic, but has three cusps and preserved mobility. Mitral valve appears grossly normal. I do not appreciate any vegetations, thickening or limitations of its mobility by 2-D imaging. Tricuspid valve also appears normal. Pulmonic valve was not well seen. No pericardial effusion is noted. Inferior vena cava is dilated and has some collapse with respiration indicative of likely at least mildly elevated central venous pressure. Aortic root and aortic arch and abdominal aorta all appeared normal. Doppler interrogation reveals competent aortic valve. There is approximately [id number] mitral insufficiency with central MR jet. There is trace tricuspid insufficiency. Calculated pulmonary artery pressure is in high 30s or low 40s, corresponding to at least mild pulmonary hypertension. Mitral inflow pattern and tissue Doppler imaging of mitral annulus revealed preserved diastolic function. CONCLUSIONS: 1. Study is of acceptable technical quality. The patient is in sinus rhythm. 2. Normal LV size and systolic function, normal diastolic function. 3. [id number] mitral insufficiency. 4. Likely elevated central venous pressure and at least mild pulmonary hypertension. COMMENTS: No visualized vegetations.
[2019-10-20] MEDS ORDERED: LIDOCAINE 2% INJ 100 MG/5 ML SDV (FOR ANES.) As Ordered ONE (16:39)
[2019-10-20] MEDS ORDERED: fentaNYL 100 MCG/2 ML INJECTION (J3010) As Ordered ONE (16:39)
[2019-10-20] MEDS ORDERED: MIDAZOLAM INJ 2 MG/2 ML VIAL (J2250) As Ordered ONE (16:39)
[2019-10-20] MEDS ORDERED: propofoL 200 MG/20 ML VIAL As Ordered ONE (16:39)
[2019-10-20] MEDS ORDERED: CETACAINE SPRAY 5GM As Ordered ONE (16:40)
[2019-10-20] MEDS ORDERED: LIDOCAINE VISCOUS 2% SOLN 15ML UDC As Ordered ONE (16:40)
[2019-10-20] MEDS ORDERED: PHENYLephrine HCL 500 MCG/5 ML (100MCG/ML) SYRINGE (J2370) As Ordered ONE (17:38)
[2019-10-20] MEDS ORDERED: ePHEDrine SULFATE 25 MG/5 ML(5MG/ML) SYRINGE As Ordered ONE (17:48)
[2019-10-20 19:02] LABS: HEMATOCRIT 28.4 % (42.0-52.0); HEMOGLOBIN 9.4 g/dl (13.5-17.5)
[2019-10-20] MEDS: ATORVASTATIN 20 MG TAB PO SCH (20:35)
[2019-10-20] MEDS: cefTRIAXone SOD 2 GM in D5W MINI-BAG PLUS 50 ML IV SCH (20:35)
[2019-10-20] MEDS: LATANOPROST 0.005% OPHTH SOLN 2.5 ML OU SCH (20:35)
--- NOTE | 2019-10-20 22:26 | T-ECHO ---
DATE OF PROCEDURE: 10/20/2019 REFERRING PHYSICIAN: Dr. Saenz, Dr. Jefferson, Dr. Clayton Anesthesiology: Neelam Beltre CRNA INDICATION: Enterococcal bacteremia, suspicion for endocarditis. BRIEF HISTORY Mr. Toribio is a 58-year-old man who has had recent events that raise suspicion for endocarditis: specifically since July he suffered a stroke, splenic infarct and also developed pseudoaneurysm in the mesenteric artery that was coiled. He came to hospital because of flank pain and blood cultures came back positive for enterococcus. Consequently Dr. Jefferson was asked to see him and raised suspicion for endocarditis. Transthoracic echocardiogram earlier today did not reveal any convincing evidence for vegetation, but with high clinical suspicion transesophageal echocardiogram was indicated. I discussed the indication, procedure, its possible risks and benefits with the patient. He signed appropriate consent. Procedure was performed in the operating room. PROCEDURE NOTE The patient presented in fasting condition. After appropriate time-out was taken and anesthesiology applied all desired monitors, the patient's posterior pharynx was anesthetized using Cetacaine spray and viscous lidocaine. He was then positioned on his left side and when appropriate level of sedation was accomplished probe was introduced into esophagus and later stomach. After appropriate images were taken it was withdrawn. There were no immediate complications and the patient tolerated the procedure well. FINDINGS The patient has normal left ventricular systolic function with estimated left ventricular ejection fraction (LVEF) around 65-70%. Right ventricle also has normal systolic function. Both atria appear normal. Aortic valve has three cusps. There is a small vegetation at the edge of cusp measuring approximately 1/2 cm. By color Doppler imaging there is no stenosis or insufficiency of the valve. Mitral valve, unfortunately exhibits severe abnormalities with at least two visualized vegetations. One is more globular in shape and measures approximately 1.5 cm; the other one a thread-like measures over 2 cm in length. There are several separate MR jets. It appears that the base of anterior mitral leaflet is perforated but overall it looks like that the mitral insufficiency is not worse than moderate. There is normal pattern of flow in both left-sided and right-sided pulmonary veins with no evidence for flow reversal. Tricuspid valve appears normal. There is no vegetation. No stenosis or insufficiency. Same applies for pulmonic valve. Atrial septum is intact by color Doppler imaging and two-dimensional imaging. Aortic arch and descending aorta appear to be free of significant atherosclerosis. CONCLUSION 1. At least two separate vegetation on mitral valve with perforation at the base of anterior mitral leaflet and approximately moderate mitral insufficiency. 2. Small vegetation at the edge of aortic cusp. The valve itself is competent without stenosis or insufficiency. 3. Normal tricuspid and pulmonic valves. 4. Normal left ventricle (LV) and right ventricle (RV) systolic function. 5. Intact atrial septum. 6. Normal flow in both left-sided and right-sided pulmonary veins. COMMENTS: The results of the study were discussed with Dr. Jefferson, Dr. Clayton and also with Dr. Mejia, cardiac surgeon in [facility] in [place]. We agreed that the patient will be tentatively transferred for potential valve replacement. Preliminary transfer will be planned for Wednesday, but it can be sped up should there be any evidence for hemodynamic or other instability. MTDD
[2019-10-20] MEDS: AMPICILLIN SOD 2 GM in D5W MINI-BAG PLUS 100 ML IV SCH (22:59)
[2019-10-21] VITALS: BP 110/69
[2019-10-21 00:31] LABS: HEMATOCRIT 27.1 % (42.0-52.0); HEMOGLOBIN 9.1 g/dl (13.5-17.5)
[2019-10-21] MEDS: AMPICILLIN SOD 2 GM in D5W MINI-BAG PLUS 100 ML IV SCH ×6 (01:50→21:00)
[2019-10-21 04:00] VITALS: BP 104/70
[2019-10-21 04:46] LABS: BASO # 0.1 10^3/uL (0.0-0.2); BASO % 0.8 % (0.0-1.0); EOS # 0.1 10^3/uL (0.0-0.5); EOS % 1.9 % (0.0-3.0); HEMATOCRIT 28.2 % (42.0-52.0); HEMOGLOBIN 9.2 g/dl (13.5-17.5); LYMPH # 1.3 10^3/uL (1.5-5.0); LYMPH % 20.5 % (24.0-44.0); MEAN CORPUSCULAR HEMOGLOBIN 30.6 pg (27.0-33.0); MEAN CORPUSCULAR HGB CONC 32.6 g/dl (32.0-36.5); MEAN CORPUSCULAR VOLUME 93.7 fl (80.0-96.0); MONO # 0.6 10^3/uL (0.0-0.8); MONO % 10.1 % (0.0-5.0); NEUTROPHILS # 4.1 10^3/uL (1.5-8.5); NEUTROPHILS % 66.2 % (36.0-66.0); PLATELET COUNT, AUTOMATED 162 10^3/uL (150-450); RED BLOOD COUNT 3.01 10^6/uL (4.30-6.10); WHITE BLOOD COUNT 6.2 10^3/uL (4.0-10.0)
[2019-10-21 05:01] LABS: BLOOD UREA NITROGEN 11 MG/DL (7-18); C REACTIVE PROTEIN QUANTITATIV 4.72 MG/DL (0.00-0.30); CALCIUM LEVEL 7.3 MG/DL (8.5-10.1); CARBON DIOXIDE LEVEL 25 MEQ/L (21-32); CHLORIDE LEVEL 109 MEQ/L (98-107); GLOMERULAR FILTRATION RATE > 60.0 (>56); GLUCOSE, FASTING 90 MG/DL (70-100); MAGNESIUM LEVEL 2.3 MG/DL (1.8-2.4); POTASSIUM SERUM 3.7 MEQ/L (3.5-5.1); SODIUM LEVEL 140 MEQ/L (136-145)
[2019-10-21] MEDS ORDERED: NS 1,000 ML IV SCH (07:30)
[2019-10-21 08:00] VITALS: BP 132/81
[2019-10-21] MEDS: buPROPion **XL** TABLET 150MG (WELLBUTRIN XL) PO SCH (08:22)
[2019-10-21] MEDS: ASPIRIN 325 MG TAB PO SCH (08:22)
[2019-10-21] MEDS: THIAMINE 100 MG TAB PO SCH (08:22)
[2019-10-21] MEDS: GABAPENTIN 300 MG CAP PO SCH ×3 (08:22→20:17)
[2019-10-21] MEDS: DOCUSATE SODIUM 100 MG CAP PO SCH ×3 (08:23→20:18)
[2019-10-21] MEDS: cefTRIAXone SOD 2 GM in D5W MINI-BAG PLUS 50 ML IV SCH ×2 (08:23→20:17)
[2019-10-21] MEDS: MULTIVITAMINS/MINERALS THERAP 1 TAB PO SCH (08:23)
[2019-10-21] MEDS: CARVedilol 12.5 MG TAB PO SCH ×2 (08:25→20:18)
[2019-10-21] MEDS: TIMOLOL MALEATE 0.5% OPHTH SOLN 5 ML OU SCH (08:28)
[2019-10-21] MEDS: VANCOMYCIN HCL 1,000 MG, VIAL MATE ADAPTER 1 EACH in D5W 250 ML IV SCH ×2 (09:26→21:00)
--- NOTE | 2019-10-21 11:05 | IPNPDOC ---
Text Note Date of Service The patient was seen on 10/21/19. NOTE Subjective: Patient is a 58-year-old male with a PMHx of HTN, CAD s/p stent (2011), Paroxysmal A. 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 Patient was recently hospitalist for abdominal pain and was found to have an SMA aneurysm that was coiled by interventional radiology. Patient reports that since his discharge 2 weeks ago he has been having intermittent abdominal discomfort, associated with constipation and diarrhea. Yesterday he began to notice worsening abdominal pain, reported asa 10/10, sharp like nature, radiating from LUQ to RLQ. Reported some alleviation with pain medications, reported worsening with movement. Reports that at home he has had chills, denies any fevers (reported temperatures of 95.7). Denies any N/V. Reports that his diet consists of mostly jello, soup and sandwiches. Patient was admitted to hospitalist service for further evaluation and treatment. Vascular surgery was called on consultation Patient was seen and examined at the bedside. , Currently patient has been ambulating throughout the halls without any difficulty. Has not required subling ual oxygen. Denies any chest pain, cough or shortness of breath has not expense any nausea, vomiting, abdominal pain. Denies any recent bowel movements. Denies any urinary discomfort. Objective: Vitals (See below) General: Lying in bed, appears comfortable, AAOx3 HEENT: NC, AT CVS: +S1S2 Lungs: Air entry fair bilaterally. No rhonchi, crackles, wheezing Abdomen: Soft without distention or tenderness Extremities: Edema is not appreciated at lower extremities, - Calf tenderness Imaging: - CTA abdomen 10/18: 1. Interval embolization of mesenteric aneurysms. Probable small hematoma in the left lower abdominal abdominal mesentery containing adrian ral embolization coils. Nodular area of hyperattenuation adjacent to the embolization material may be continued contrast extravasation but evaluation is limited by streak artifacts from adjacent embolization material. 2. Hyperattenuating intraluminal fluid or contrast in the small bowel and cecum distal to the area of mesenteric embolization. If there has not been recent oral contrast administration, findings may indicate intraluminal contrast extravasation into the small bowel. If there is active lower GI bleeding, nuclear medicine tagged red blood cell scan may be helpful for confirmation. 3. No other arterial contrast extravasation. No aneurysm common common or flow- limiting stenosis. 4. Stable appearance of other incidental findings as above. - CT abdomen / pelvis without contrast 10/18: Although the examinations are technically different, as described above, there has been no significant change as described above with some exam limitations. - CXR 10/19: New infiltrate in the superior aspect of the right lower lobe consistent with pneumonia. 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 At least two separate vegetation on mitral valve with perforation at the base of anterior mitral leaflet and approximately moderate mitral insufficiency. 2. Small vegetation at the age of aortic valve. The valve itself is competent without stenosis or insufficiency. 3. Normal mitral and pulmonic valves. 4. Normal left ventricle (LV) and right ventricle (RV) systolic function. 5. Intact atrial septum. 6. Normal flow in both left-sided and right-sided pulmonary veins. - Case discussed with Dr. Boone; patient will continue with antibiotics as per ID and will be transferred to [facility] on Wednesday for likely surgery - Infectious disease on consult; appreciate their input - c/w Ampicillin and Vancomycin (Antibiotic day #3) s/p Abdominal pain - possibly 2/2 inflammation around SMA aneurysm / mycotic aneurysm, less likely 2/2 bleeding - Presented with worsening abdominal discomfort / Currently has had resolution of pain - Hx of SMA aneurysm; s/p stenting 10/03/2019 - Currently patient appears comfortable with improvement of pain, no N/V - Physical with LUQ tenderness, rectal exams with external hemorrhoids and no dark stool - Occult blood negative - Interventional radiology on consultation; appreciate their input - case has been discussed does not appear to have extravasation Compensated Diastolic CHF - No evidence of fluid overload - ECHO 10/02: Diastolic dysfunction, EF 65-70 % - No currently on diuretics s/p Hypoxia - possibly 2/2 HCAP? - Does not have SOB, productive cough or fevers - Reported chills - CXR noted above - c/w antibiotics (as listed above) - c/w Incentive spirometry Normocytic anemia - 2/2 AOCD / Iron deficiency / Symptomatic anemia - Clinically patient has reported fatigue more than usual over the last several weeks - Baseline Hg of approximately 12 - s/p 2 units PRBC - Stool for occult blood negative - Hg has remained stable Elevated Cr - possibly 2/2 intra-renal etiology - possibly 2/2 septic emboli - Baseline Cr of 0.7; Cr on admission of 1.3 - Currently has not had and significant changes while on IV fluid hydration - c/w Oral hydration at this time HTN - BP is currently well controlled - c/w Carvedilol with holding parameters CAD s/p stent (2011) - c/w ASA Suspected suspicion of paroxysmal A. fib based on splenic infarctions, however no objective evidence noted - It is unclear where the diagnosis of paroxysmal atrial fibrillation was made - On admission 09/09 patient had no history of A. fib, however on admission 10/02 patient was noted to have paroxysmal atrial fibrillation, but not on full anticoagulation - Patient was advised to start Eliquis on 10/05 - EKGs and Telemetry strips have not revealed any evidence of atrial fibrillation from 09/09 to current day; all have indicated sinus rhythm - c/w rate control with carvedilol - Discussed the findings of telemetry stirps / EKGs with patient; verbalized understanding of risks / benefits - Will discontinue Eliquis CVA x 2 - Most recent 07/2019 - c/w ASA and Atorvastatin Splenic infarcts - likely 2/2 septic emboli, less likely 2/2 coagulopathy - Review of hyper coagulability workup reveals + IgM anti cardiolipin antibodies - Hypercoagulability workup with cardiolipin antibody repeated - s/p Eliquis Lumbar radiculopathy - c/w Gabapentin Depression - c/w Bupropion DVT prophylaxis - c/w TEDs/Sequentials - s/p Eliquis - Will start Heparin SQ Disposition: - Anticipate transfer to [facility] on Wednesday under the care of Dr. Willoughby, Cardiothoracic surgery VS,Joalnta, I+O VS, Jolanta, I+O Laboratory Tests 10/20/19 13:09 10/20/19 13:10 10/20/19 18:49 10/20/19 23:54 10/21/19 04:11 Vital Signs Date Time Temp Pulse Resp B/P (MAP) Pulse Ox O2 Delivery O2 Flow Rate FiO2 10/21/19 08:25 104 132/84 10/21/19 08:00 97.3 18 96 Room Air 10/20/19 18:20 2 I&O- Last 24 Hours up to 6 AM 10/21/19 05:59 Intake Total 3550 ml Output Total 4250 ml Balance -700 ml SUBHASH LOPEZ MD Oct 21, 2019 11:05
[2019-10-21 12:00] VITALS: BP 114/72
[2019-10-21] MEDS: HEPARIN SOD (PORCINE) 5000 UNITS/ML VIAL (J1644 PER 1000UNITS) SQ SCH ×3 (13:49→22:00)
[2019-10-21 14:07] LABS: CARDIOLIPIN IGA ANTIBODY <9 APL U/mL (0-11); CARDIOLIPIN IGG ANTIBODY 11 GPL U/mL (0-14); CARDIOLIPIN IGM ANTIBODY 42 MPL U/mL (0-12)
[2019-10-21 16:00] VITALS: BP 122/84
[2019-10-21 20:00] VITALS: BP 125/76
[2019-10-21] MEDS: ATORVASTATIN 20 MG TAB PO SCH (20:17)
[2019-10-21] MEDS: LATANOPROST 0.005% OPHTH SOLN 2.5 ML OU SCH ×2 (20:19→20:22)
--- NOTE | 2019-10-21 20:21 | PHACANCOPD ---
PHARMACY VANCOMYCIN DOSING Pt Demographics Demographics Patient Age:58 , Weight:66.100 , Gender: male Adjusted Body Weight Date: 10/20/19, Adjusted Body Weight: Kg Events Past 24 Hours Events Past 24 Hours: NO: Dialysis, Diuretic Therapy, Change in CrCl, Fever, Elevation in WBC, Pending Diagnostics, Pending Procedures, Other Vancomycin Vancomycin Target Ranges: 15-20 mcg/ml Vancomycin Load Y/N: Yes Load Dose Date Time Vancomycin Load Dose: 1 GM @ 0100, 1 GM @0900 Date: 10/20/19 Time: Vancomycin Dose Date: 10/20/19. Current Vancomycin Dose: [1 GM IV Q12H] Intermittent Dosing?: No Labs Labs Item Value Date Time White Blood Count 6.2 10^3/uL 10/21/19410 Glomerular Filtration Rate > 60.0 10/21/19410 Creatinine 1.20 MG/DL 10/21/19410 Blood Urea Nitrogen 11 MG/DL 10/21/19410 Vancomycin Level Trough 15.4 UG/ML 10/21/191944 Vital Signs Label Value Date Time Patient Temperature 98.7 degrees F 10/21/191999 Temperature Source Temporal 10/21/191999 Micro Microbiology 10/20/19 Blood Culture - Preliminary, Resulted No growth after 24 hours . All specim... 10/20/19 Blood Culture - Preliminary, Resulted No growth after 24 hours . All specim... 10/19/19 Stool Occult Blood ([facility]) - Final, Complete 10/19/19 Blood Culture - Final, Complete Enterococcus Faecalis 10/19/19 Blood Culture - Final, Complete Enterococcus Faecalis Creatinine Clearance Date:10/21/19. Creatinine Clearance: [~65]. Assessment and Plan Maintaining Current Dose?: Yes Reason for dose change: No Dose Change Pharmacist Note Pharmacist Note Date: 10/21/19. Pharmacist note: Trough of 15.4 is within target range. Will continue current dosing. Will monitor and make adjustments as needed. ELOY [facility] Oct 21, 2019 20:21
[2019-10-22] VITALS: BP 108/65
[2019-10-22] MEDS: AMPICILLIN SOD 2 GM in D5W MINI-BAG PLUS 100 ML IV SCH ×6 (00:28→22:47)
[2019-10-22 04:00] VITALS: BP 113/72
[2019-10-22 05:25] LABS: BASO % 0.4 % (0.0-1.0); EOS # 0.2 10^3/uL (0.0-0.5); EOS % 2.2 % (0.0-3.0); HEMATOCRIT 28.9 % (42.0-52.0); HEMOGLOBIN 9.5 g/dl (13.5-17.5); LYMPH # 1.6 10^3/uL (1.5-5.0); LYMPH % 23.3 % (24.0-44.0); MEAN CORPUSCULAR HEMOGLOBIN 30.9 pg (27.0-33.0); MEAN CORPUSCULAR HGB CONC 32.9 g/dl (32.0-36.5); MEAN CORPUSCULAR VOLUME 94.1 fl (80.0-96.0); MONO # 0.5 10^3/uL (0.0-0.8); MONO % 7.4 % (0.0-5.0); NEUTROPHILS # 4.5 10^3/uL (1.5-8.5); NEUTROPHILS % 66.3 % (36.0-66.0); PLATELET COUNT, AUTOMATED 188 10^3/uL (150-450); RED BLOOD COUNT 3.07 10^6/uL (4.30-6.10); WHITE BLOOD COUNT 6.9 10^3/uL (4.0-10.0)
[2019-10-22 05:43] LABS: C REACTIVE PROTEIN QUANTITATIV 3.83 MG/DL (0.00-0.30); CALCIUM LEVEL 7.7 MG/DL (8.5-10.1); CREATININE FOR GFR 1.31 MG/DL (0.70-1.30); GLOMERULAR FILTRATION RATE 59.8 (>56); MAGNESIUM LEVEL 2.3 MG/DL (1.8-2.4); POTASSIUM SERUM 3.6 MEQ/L (3.5-5.1)
[2019-10-22] MEDS: HEPARIN SOD (PORCINE) 5000 UNITS/ML VIAL (J1644 PER 1000UNITS) SQ SCH ×3 (06:39→21:05)
[2019-10-22 08:00] VITALS: BP 137/86
--- NOTE | 2019-10-22 08:00 | REPVR ---
PROCEDURE INFORMATION: Exam: US Retroperitoneal Limited, Kidneys Exam date and time: 10/22/2019 7:49 AM Age: 58 years old Clinical indication: Abnormal findings; Abnormal lab test; Other: [place]ador TECHNIQUE: Imaging protocol: Real-time ultrasound of the retroperitoneum with image documentation. Examination was focused on the kidneys. COMPARISON: 1. RENAL US 08/29/2019 11:[address] ABD PELVIS W/O CONTRAST 10/19/2019 11:04:56 AM FINDINGS: Right kidney: The right kidney measures 10.2 x 6.3 x 5.9 cm. The echogenicity appears mildly increased. No hydronephrosis or stones are identified. Left kidney: The left kidney measures 11.6 x 5.4 x 6.0 cm. The echogenicity appears mildly increased. No hydronephrosis or stones are identified.. There is an exophytic anechoic simple cyst laterally at the midpole measuring 2.2 x 1.4 x 1.9 cm, without significant change. Bladder: The bladder wall appears trabeculated with several small focal outpouchings consistent with diverticula, as seen on the prior CT scan. Ureteral jets were seen. IMPRESSION: 1. Normal size of the kidneys but mildly increased echogenicity of both kidneys, consistent with medical renal disease. 2. No hydronephrosis or stones identified. 3. Mildly trabeculated bladder wall and multiple bladder diverticula, as seen on the prior CT scan. Electronically signed by: Yumiko Shin On 10/22/2019 08:00:16 AM
[2019-10-22] MEDS: ASPIRIN 325 MG TAB PO SCH (08:16)
[2019-10-22] MEDS: CARVedilol 12.5 MG TAB PO SCH ×2 (08:17→21:04)
[2019-10-22] MEDS: MULTIVITAMINS/MINERALS THERAP 1 TAB PO SCH (08:18)
[2019-10-22] MEDS: buPROPion **XL** TABLET 150MG (WELLBUTRIN XL) PO SCH (08:18)
[2019-10-22] MEDS: THIAMINE 100 MG TAB PO SCH (08:18)
[2019-10-22] MEDS: cefTRIAXone SOD 2 GM in D5W MINI-BAG PLUS 50 ML IV SCH ×2 (08:19→19:49)
[2019-10-22] MEDS: DOCUSATE SODIUM 100 MG CAP PO SCH (08:19)
[2019-10-22] MEDS: GABAPENTIN 300 MG CAP PO SCH ×3 (08:19→21:05)
[2019-10-22] MEDS: TIMOLOL MALEATE 0.5% OPHTH SOLN 5 ML OU SCH (08:20)
[2019-10-22] MEDS ORDERED: DOCUSATE SODIUM 100 MG CAP PO PRN (09:00)
--- NOTE | 2019-10-22 09:12 | IPNPDOC ---
Text Note Date of Service The patient was seen on 10/22/19. NOTE Subjective: Patient is a 58-year-old male with a PMHx of HTN, CAD s/p stent (2011), Paroxysmal A. 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 Patient was recently hospitalist for abdominal pain and was found to have an SMA aneurysm that was coiled by interventional radiology. Patient reports that since his discharge 2 weeks ago he has been having intermittent abdominal discomfort, associated with constipation and diarrhea. Yesterday he began to notice worsening abdominal pain, reported asa 10/10, sharp like nature, radiating from LUQ to RLQ. Reported some alleviation with pain medications, reported worsening with movement. Reports that at home he has had chills, denies any fevers (reported temperatures of 95.7). Denies any N/V. Reports that his diet consists of mostly jello, soup and sandwiches. Patient was admitted to hospitalist service for further evaluation and treatment. Vascular surgery was called on consultation Patient was seen and examined at the bedside. Currently, patient was seen walking around his room. He denied any problems overnight. Has not expense any chest pain, shortness breath or palpitations. Denies nausea, vomiting, abdominal pain, does report that his bowel movements are loose while taking stool softeners. Will adjust the dose of his stool regimen. Patient denies any urinary discomfort and reports that his urine is a very clear. Objective: Vitals (See below) General: Lying in bed, appears comfortable, AAOx3 HEENT: NC, AT CVS: +S1S2, + systolic murmur Lungs: Air entry appears to be fair bilaterally, without any auscultated rhonchi, wheezing or crackles Abdomen: Soft, ND, non-tender Extremities: No edema, - Calf tenderness Imaging: - CTA abdomen 10/18: 1. Interval embolization of mesenteric aneurysms. Probable small hematoma in the left lower abdominal abdominal mesentery containing several embolization coils. Nodular area of hyperattenuation adjacent to the embolization material may be continued contrast extravasation but evaluation is limited by streak artifacts from adjacent embolization material. 2. Hyperattenuating intraluminal fluid or contrast in the small bowel and cecum distal to the area of mesenteric embolization. If there has not been recent oral contrast administration, findings may indicate intraluminal contrast extravasation into the small bowel. If there is active lower GI bleeding, nuclear medicine tagged red blood cell scan may be helpful for confirmation. 3. No other arterial contrast extravasation. No aneurysm common common or flow- limiting stenosis. 4. Stable appearance of other incidental findings as above. - CT abdomen / pelvis without contrast 10/18: Although the examinations are technically different, as described above, there has been no significant change as described above with some exam limitations. - CXR 10/19: New infiltrate in the superior aspect of the right lower lobe consistent with pneumonia. Assessment and plan: Acute bacterial endocarditis - 2/2 enterococcus faecalis bacteremia - possibly 2/2 recurrent UTIs - Initially had presented with chills and fatigue / history of splenic infarcts / mycotic aneurysms - Currently is hemodynamically stable / afebrile - s/p Leukocytosis, No lactic acidosis - Blood cultures 10/18: Gram positive cocci dena/chains/clusters / Blood cultures 10/19: No growth at 24 hours - RASHAUN 10/19: 1. At least two separate vegetation on mitral valve with perforation at the base of anterior mitral leaflet and approximately moderate mitral insufficiency. 2. Small vegetation at the age of aortic valve. The valve itself is competent without stenosis or insufficiency. 3. Normal mitral and pulmonic valves. 4. Normal left ventricle (LV) and right ventricle (RV) systolic function. 5. Intact atrial septum. 6. Normal flow in both left-sided and right-sided pulmonary veins. - Discussed with Dr. Boone; will still anticipate transfer to [facility] on 10/22, tomorrow - Infectious disease on consult; appreciate their input - c/w Ampicillin and Vancomycin (Antibiotic day #4) s/p Abdominal pain - possibly 2/2 inflammation around SMA aneurysm / mycotic an eurysm, less likely 2/2 bleeding - Does not have any abdominal discomfort today - Hx of SMA aneurysm; s/p stenting 10/03/2019 - Currently patient appears comfortable with improvement of pain, no N/V - Physical with LUQ tenderness, rectal exams with external hemorrhoids and no dark stool - Occult blood negative - Interventional radiology on consultation; appreciate their input - case has been discussed does not appear to have extravasation Compensated Chronic Diastolic CHF - No evidence of fluid overload - ECHO 10/02: Diastolic dysfunction, EF 65-70 % - No currently on diuretics s/p Hypoxia - possibly 2/2 HCAP? - Does not have SOB, productive cough or fevers - Reported chills - CXR noted above - c/w antibiotics (as listed above) - c/w Incentive spirometry Normocytic anemia - 2/2 AOCD / Iron deficiency / Symptomatic anemia - s/p Fatigue - Baseline Hg of approximately 12 - s/p 2 units PRBC - Stool for occult blood negative - Hg has remained unchanged Elevated Cr - possibly 2/2 intra-renal etiology - possibly 2/2 septic emboli - Baseline Cr of 0.7; Cr on admission of 1.3 - Will check Renal US - Will check urine electrolytes / UA - Will start IV fluid hydration - c/w Oral hydration at this time HTN - BP is currently well controlled - c/w Carvedilol with holding parameters CAD s/p stent (2011) - c/w ASA Suspected suspicion of paroxysmal A. fib based on splenic infarctions, however no objective evidence noted - It is unclear where the diagnosis of paroxysmal atrial fibrillation was made - On admission 09/09 patient had no history of A. fib, however on admission 10/02 patient was noted to have paroxysmal atrial fibrillation, but not on full anticoagulation - Patient was advised to start Eliquis on 10/05 - EKGs and Telemetry strips have not revealed any evidence of atrial fibrillation from 09/09 to current day; all have indicated sinus rhythm - c/w rate control with carvedilol - Discussed the findings of telemetry stirps / EKGs with patient; verbalized understanding of risks / benefits - s/p Eliquis CVA x 2 - Most recent 07/2019 - c/w ASA and Atorvastatin Splenic infarcts - likely 2/2 septic emboli, less likely 2/2 coagulopathy - Review of hyper coagulability workup reveals + IgM anti cardiolipin antibodies - Hypercoagulability workup with cardiolipin antibody repeated - s/p Eliquis Lumbar radiculopathy - c/w Gabapentin Depression - c/w Bupropion DVT prophylaxis - c/w TEDs/Sequentials - s/p Eliquis - c/w Heparin SQ Disposition: - Anticipate transfer to [facility] on Wednesday under the care of Dr. Willoughby, [facility] othoracic surgery VS,Fishbone, I+O VS, Fishbone, I+O Laboratory Tests 10/22/19 04:50 Vital Signs Date Time Temp Pulse Resp B/P (MAP) Pulse Ox O2 Delivery O2 Flow Rate FiO2 10/22/19 08:17 102 113/72 10/22/19 08:00 98.1 18 95 Room Air 10/20/19 18:20 2 I&O- Last 24 Hours up to 6 AM 10/22/19 06:00 Intake Total 2280 ml Output Total 4350 ml Balance -2070 ml SUBHASH LOPEZ MD Oct 22, 2019 09:12
[2019-10-22] MEDS: VANCOMYCIN HCL 1,000 MG, VIAL MATE ADAPTER 1 EACH in D5W 250 ML IV SCH ×2 (10:35→20:46)
[2019-10-22 12:00] VITALS: BP 133/87
[2019-10-22 14:01] LABS: APPEARANCE, URINE HAZY (CLEAR); BACTERIA, URINE AUTO NEGATIVE (NEGATIVE); BILIRUBIN, URINE AUTO NEGATIVE (NEGATIVE); BLOOD, URINE BLOOD 2+ (NEGATIVE); COLOR, URINE YELLOW (YELLOW); GLUCOSE, URINE (UA) AUTO NEGATIVE (NEGATIVE); KETONE, URINE AUTO NEGATIVE (NEGATIVE); LEUKOCYTE ESTERASE, URINE AUTO NEGATIVE (NEGATIVE); NITRITE, URINE AUTO NEGATIVE (NEGATIVE); PROTEIN, URINE AUTO NEGATIVE (NEGATIVE); RBC, URINE AUTO 25 /HPF (0-3); SQUAMOUS EPITHELIAL CELL UR AU 0 /HPF (0-6); UROBILINOGEN, URINE AUTO 0.2 mg/dL (0.0-2.0); WBC, URINE AUTO 6 /HPF (0-3)
[2019-10-22 14:05] LABS: OSMOLALITY URINE 280 MOSM/KG (500-800)
[2019-10-22 14:20] LABS: CREATININE,RANDOM URINE 48.1 MG/DL; SODIUM,RANDOM URINE 87 MEQ/L; UREA NITROGEN RANDOM URINE 201 MG/DL
[2019-10-22 16:00] VITALS: BP 137/80
[2019-10-22 20:00] VITALS: BP 139/84
[2019-10-22] MEDS: ONDANSETRON 4MG/2ML VIAL (J2405) IV PRN (20:34)
[2019-10-22] MEDS: LATANOPROST 0.005% OPHTH SOLN 2.5 ML OU SCH (21:00)
[2019-10-22] MEDS: DICYCLOMINE 10 MG CAP PO PRN (21:03)
[2019-10-22] MEDS: ATORVASTATIN 20 MG TAB PO SCH (21:04)
[2019-10-22] MEDS: MORPHINE 2 MG/ML 1ML VIAL (J2270) IV PRN (23:43)
[2019-10-23] VITALS: BP 140/86
[2019-10-23] MEDS: AMPICILLIN SOD 2 GM in D5W MINI-BAG PLUS 100 ML IV SCH ×3 (02:01→09:37)
--- NOTE | 2019-10-23 03:42 | IPNPDOC ---
Text Note Date of Service The patient was seen on 10/23/19. NOTE MINOR PROGRESS NOTE: RN alerted me that patient was having intractable abd pain after multiple rounds of pain meds were given. Pt was assessed at bedside. He states that the pain is in the epigastric area, sharp. He was noted to be on his hands and knees on the bed and appeared uncomfortable. Abd was soft, distended, tender to palpation diffusely with some voluntary guarding noted. Bowel sounds were present. Given presentation, will obtain XR abd for now and try GI cocktail. Pain may be 2/2 gas pains as he has been belching all night as well. Plan: - GI cocktail - f/u XR abd - reassess and serial abd exams VS,Rodrickbone, I+O VS, Rodrickbone, I+O Laboratory Tests 10/22/19 04:50 Vital Signs Date Time Temp Pulse Resp B/P (MAP) Pulse Ox O2 Delivery O2 Flow Rate FiO2 10/23/19 00:00 98.2 110 20 140/86 (104) 92 Room Air 10/20/19 18:20 2 I&O- Last 24 Hours up to 6 AM 10/23/19 06:00 Intake Total 3180 ml Output Total 1475 ml Balance 1705 ml GREGORY ONEAL MD Oct 23, 2019 03:42
[2019-10-23] MEDS ORDERED: GI COCKTAIL 50ML BTL(HYOSCYAMINE/MAALOX/LIDOCAINE VISCOUS)(1:3:1) PO ONE (03:45)
[2019-10-23 04:00] VITALS: BP 158/92
[2019-10-23] MEDS: HEPARIN SOD (PORCINE) 5000 UNITS/ML VIAL (J1644 PER 1000UNITS) SQ SCH (05:52)
[2019-10-23] MEDS: MORPHINE 2 MG/ML 1ML VIAL (J2270) IV PRN (05:57)
[2019-10-23] MEDS ORDERED: SLF 3 ML SYR IV PRN (06:45)
[2019-10-23] MEDS ORDERED: HEPA500011 SQ (08:21)
[2019-10-23] MEDS ORDERED: ONDA4INJ4 IV (08:21)
[2019-10-23] MEDS ORDERED: DOCU100C16 PO (08:21)
[2019-10-23] MEDS ORDERED: [UNRECOGNIZED DRUG - CODE] IM (08:21)
[2019-10-23] MEDS ORDERED: CEFT2INJ4 IV (08:21)
[2019-10-23] MEDS ORDERED: MORP2INJ4 IV (08:21)
[2019-10-23] MEDS ORDERED: DICY1CAP8 PO (08:21)
[2019-10-23 08:24] LABS: BASO % 0.3 % (0.0-1.0); EOS % 0.4 % (0.0-3.0); HEMATOCRIT 29.5 % (42.0-52.0); HEMOGLOBIN 9.9 g/dl (13.5-17.5); LYMPH # 1.6 10^3/uL (1.5-5.0); LYMPH % 14.8 % (24.0-44.0); MEAN CORPUSCULAR HEMOGLOBIN 31.4 pg (27.0-33.0); MEAN CORPUSCULAR HGB CONC 33.6 g/dl (32.0-36.5); MEAN CORPUSCULAR VOLUME 93.7 fl (80.0-96.0); MONO # 0.7 10^3/uL (0.0-0.8); MONO % 5.9 % (0.0-5.0); NEUTROPHILS # 8.7 10^3/uL (1.5-8.5); NEUTROPHILS % 78.1 % (36.0-66.0); PLATELET COUNT, AUTOMATED 202 10^3/uL (150-450); RED BLOOD COUNT 3.15 10^6/uL (4.30-6.10); WHITE BLOOD COUNT 11.1 10^3/uL (4.0-10.0)
[2019-10-23] MEDS: cefTRIAXone SOD 2 GM in D5W MINI-BAG PLUS 50 ML IV SCH (08:24)
[2019-10-23] MEDS: buPROPion **XL** TABLET 150MG (WELLBUTRIN XL) PO SCH (08:24)
[2019-10-23] MEDS: ASPIRIN 325 MG TAB PO SCH (08:24)
[2019-10-23 08:25] VITALS: BP 138/66
[2019-10-23] MEDS: CARVedilol 12.5 MG TAB PO SCH (08:25)
[2019-10-23] MEDS: MULTIVITAMINS/MINERALS THERAP 1 TAB PO SCH (08:25)
[2019-10-23] MEDS: THIAMINE 100 MG TAB PO SCH (08:25)
[2019-10-23] MEDS: GABAPENTIN 300 MG CAP PO SCH (08:25)
[2019-10-23] MEDS: TIMOLOL MALEATE 0.5% OPHTH SOLN 5 ML OU SCH (08:26)
[2019-10-23 08:45] VITALS: BP 138/66
[2019-10-23 08:45] LABS: CALCIUM LEVEL 7.9 MG/DL (8.5-10.1); CREATININE FOR GFR 1.32 MG/DL (0.70-1.30); GLOMERULAR FILTRATION RATE 59.3 (>56); POTASSIUM SERUM 3.7 MEQ/L (3.5-5.1)
[2019-10-23 08:46] LABS: ALBUMIN 2.3 GM/DL (3.2-5.2); BILIRUBIN,TOTAL 0.8 MG/DL (0.2-1.0); C REACTIVE PROTEIN QUANTITATIV 3.9 MG/DL (0.00-0.30); MAGNESIUM LEVEL 2.5 MG/DL (1.8-2.4); TOTAL PROTEIN 6.9 GM/DL (6.4-8.2); VANCOMYCIN LEVEL TROUGH 16.2 UG/ML (10.0-20.0)
--- NOTE | 2019-10-23 09:10 | REP ---
KUB: SINGLE VIEW. HISTORY: Abdomen pain. Comparison is made with tomographic images from CT study October 19, 2019. FINDINGS: Embolic coil material is visible to the right of midline in the mid abdomen. There one or two loops of air-filled small bowel in the left upper quadrant. No evidence of obstruction. Flank stripes are intact. Psoas margins are symmetric. Vascular calcifications noted. There are degenerative changes of the lumbar spine. IMPRESSION: Nonspecific small bowel loops in the central abdomen. Embolic coil material projecting in the right mid abdomen. Electronically Signed by Bobby Strauss MD 10/23/2019 03:33 P
[2019-10-23] MEDS: DICYCLOMINE 10 MG CAP PO PRN (09:37)
--- NOTE | 2019-10-23 09:51 | DS.PDOC ---
Discharge Summary General Date of Admission Oct 19, 2019 at 07:59 Date of Discharge 10/23/2019 Discharge Summary PROCEDURES PERFORMED DURING STAY: Transesophageal ECHO 10/20/[address] 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 Normocytic anemia - 2/2 AOCD / Iron deficiency / Symptomatic anemia Elevated Cr - possibly 2/2 intra-renal etiology - possibly 2/2 septic emboli HTN CAD s/p stent (2011) Suspected suspicion of paroxysmal A. fib based on splenic infarctions, however no objective evidence noted CVA x 2 Splenic infarcts - likely 2/2 septic emboli, less likely 2/2 coagulopathy Lumbar radiculopathy Depression DVT prophylaxis COMPLICATIONS/CHIEF COMPLAINT: Abdominal pain HISTORY OF PRESENT ILLNESS: Patient is a 58-year-old male with a PMHx of HTN, CAD s/p stent (2011), Paroxysmal A. 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 Patient was recently hospitalist for abdominal pain and was found to have an SMA aneurysm that was coiled by interventional radiology. Patient reports that since his discharge 2 weeks ago he has been having intermittent abdominal discomfort, associated with constipation and diarrhea. Yesterday he began to notice worsening abdominal pain, reported asa 10/10, sharp like nature, radiating from LUQ to RLQ. Reported some alleviation with pain medications, reported worsening with movement. Reports that at home he has had chills, denies any fevers (reported temperatures of 95.7). Denies any N/V. Repo rts that his diet consists of mostly jello, soup and sandwiches. Patient was admitted to hospitalist service for further evaluation and treatment. Vascular surgery was called on consultation. 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 At least two separate vegetation on mitral valve with perforation at the base of anterior mitral leaflet and approximately moderate mitral insufficiency. 2. Small vegetation at the age of aortic valve. The valve itself is competent without stenosis or insufficiency. 3. Normal mitral and pulmonic valves. 4. Normal left ventricle (LV) and right ventricle (RV) systolic function. 5. Intact atrial septum. 6. Normal flow in both left-sided and right-sided pulmonary veins. - Plan for transfer to [facility] for evaluation by cardiothoracic surgery - Dr. Larios - Infectious disease on consult; appreciate their input - c/w Ampicillin and Ceftriaxone (Antibiotic day #5) s/p Abdominal pain - possibly 2/2 inflammation around SMA aneurysm / mycotic aneurysm, less likely 2/2 bleeding - Does not have any abdominal discomfort today - Hx of SMA aneurysm; s/p stenting 10/03/2019 - Currently patient appears comfortable with improvement of pain, no N/V - Physical with LUQ tenderness, rectal exams with external hemorrhoids and no dark stool - Occult blood negative - Interventional radiology on consultation; appreciate their input - case has been discussed does not appear to have extravasation Compensated Chronic Diastolic CHF - No evidence of fluid overload - ECHO 10/02: Diastolic dysfunction, EF 65-70 % - No currently on diuretics s/p Hypoxia - possibly 2/2 HCAP? - Does not have SOB, productive cough or fevers - Reported chills - CXR noted above - c/w antibiotics (as listed above) - c/w Incentive spirometry Normocytic anemia - 2/2 AOCD / Iron deficiency / Symptomatic anemia - s/p Fatigue - Baseline Hg of approximately 12 - s/p 2 units PRBC - Stool for occult blood negative - Hg has remained unchanged Elevated Cr - possibly 2/2 intra-renal etiology - possibly 2/2 septic emboli - Baseline Cr of 0.7; Cr on admission of 1.3 - remains unchanged - Renal US noted; consistency with medical renal disease. - FENa: 1.7% - Patient had difficulty with urination overnight was straight cateterized for removal of 350 cc of urine - c/w IV fluid hydration HTN - BP is currently well controlled - c/w Carvedilol with holding parameters CAD s/p stent (2011) - c/w ASA Suspected suspicion of paroxysmal A. fib based on splenic infarctions, however no objective evidence noted - It is unclear where the diagnosis of paroxysmal atrial fibrillation was made - On admission 09/09 patient had no history of A. fib and was discharged without anticoagulation, however on admission 10/02 patient was noted to have paroxysmal atrial fibrillation on admission - EKG was NSR, but not on full anticoagulation; he advised to start Eliquis on 10/05 (discharge) - EKGs and Telemetry strips have not revealed any evidence of atrial fibri llation from 09/09 to current day; all have indicated sinus rhythm - c/w rate control with carvedilol - Discussed the findings of telemetry stirps / EKGs with patient; verbalized understanding of risks / benefits of discontinuing anticoagulation - s/p Eliquis CVA x 2 - Most recent 07/2019 - c/w ASA and Atorvastatin Splenic infarcts - likely 2/2 septic emboli, less likely 2/2 coagulopathy - Review of hypercoagulability workup reveals + IgM anti cardiolipin antibodies - Hypercoagulability workup with cardiolipin antibody repeated; Low-Med Positive Anti-Cardiolipin IgM Antibodies - s/p Eliquis Lumbar radiculopathy - c/w Gabapentin Depression - c/w Bupropion DVT prophylaxis - c/w TEDs/Sequentials - s/p Eliquis - c/w Heparin SQ DISCHARGE MEDICATIONS: Please see below. ALLERGIES: Please see below. PHYSICAL EXAMINATION ON DISCHARGE: Vitals (See below) General: Lying in bed, appears comfortable, AAOx3 HEENT: NC, AT CVS: +S1S2, + systolic murmur Lungs: Fair air entry b/l, no evidence of rhonchi / rales or wheezing on auscultation Abdomen: Soft,non-distended, mild tenderness at LUQ Extremities: No evidence of LE pitting edema, - Calf tenderness LABORATORY DATA: Please see below. IMAGING: - CTA abdomen 10/18: 1. Interval embolization of mesenteric aneurysms. Probable small hematoma in the left lower abdominal abdominal mesentery containing several embolization coils. Nodular area of hyperattenuation adjacent to the embolization material may be continued contrast extravasation but evaluation is limited by streak artifacts from adjacent embolization material. 2. Hyperattenuating intraluminal fluid or contrast in the small bowel and cecum distal to the area of mesenteric embolization. If there has not been recent oral contrast administration, findings may indicate intraluminal contrast extravasation into the small bowel. If there is active lower GI bleeding, nuclear medicine tagged red blood cell scan may be helpful for confirmation. 3. No other arterial contrast extravasation. No aneurysm common common or flow- limiting stenosis. 4. Stable appearance of other incidental findings as above. - CT abdomen / pelvis without contrast 10/18: Although the examinations are technically different, as described above, there has been no significant change as described above with some exam limitations. - CXR 10/19: New infiltrate in the superior aspect of the right lower lobe consistent with pneumonia. - Renal US 10/21: 1. Normal size of the kidneys but mildly increased echogenicity of both kidneys, consistent with medical renal disease. 2. No hydronephrosis or stones identified. 3. Mildly trabeculated bladder wall and multiple bladder diverticula, as seen on the prior CT scan. - XR abdomen 10/22: Nonspecific small bowel loops in the central abdomen. Embolic coil material projecting in the right mid abdomen. - CT abdomen / pelvis 10/22: Mesenteric hematoma surrounding the site of the original hemorrhage in the small bowel mesentery and the metallic endovascular coil material; essentially unchanged from October 19, 2019 CT study. No new acute intra-abdominal abnormality seen. ACTIVITY: [As tolerated]. DISCHARGE PLAN: Follow up with Dr. Kvng Ricardo, Dr. Aliyah Wright and Dr. Jefferson within 7 days Follow up with Dr. Larios on transfer to [facility] Remain compliant with treatment plan and medications Return to the ER if you experience any problems DISPOSITION: Transfer to [facility] DISCHARGE CONDITION: [Stable]. TIME SPENT ON DISCHARGE: 35 minutes Vital Signs/I&Os Vital Signs Date Time Temp Pulse Resp B/P (MAP) Pulse Ox O2 Delivery O2 Flow Rate FiO2 10/23/19 08:45 97.8 95 18 138/66 (90) 96 Room Air 10/20/19 18:20 2 I&O- Last 24 Hours up to 6 AM 10/23/19 06:00 Intake Total 3180 ml Output Total 2325 ml Balance 855 ml Laboratory Data Labs 24H Laboratory Tests 2 10/22/19 13:39: Urine Color YELLOW, Urine Appearance HAZY, Urine pH 7.0, Urine Specific Mobile 1.010, Urine Protein NEGATIVE, Urine Glucose (Auto)(UA) NEGATIVE, Urine Ketones (Auto) NEGATIVE, Urine Blood 2+H, Urine Nitrite NEGATIVE, Urine Bilirubin NEGATIVE, Urine Urobilinogen 0.2, Urine Leukocyte Esterase (Auto) NEGATIVE, Urine WBC (Auto) 6H, Urine RBC (Auto) 25H, Urine Hyaline Casts (Auto) 0, Urine Bacteria (Auto) NEGATIVE, Urine Squamous Epithelial Cells 0, Urine Sperm (Auto) , Urine Random Osmolality 280L, Urine Random Creatinine 48.1, Urine Random Sodium 87, Urine Random Urea Nitrogen 201 10/23/19 07:56: Immature Granulocyte % (Auto) 0.5, Neutrophils (%) (Auto) 78.1H, Lymphocytes (%) (Auto) 14.8L, Monocytes (%) (Auto) 5.9H, Eosinophils (%) (Auto) 0.4, Basophils (%) (Auto) 0.3, Neutrophils # (Auto) 8.7H, Lymphocytes # (Auto) 1.6, Monocytes # (Auto) 0.7, Eosinophils # (Auto) 0.0, Basophils # (Auto) 0.0, Nucleated Red Blood Cells % (auto) 0.0, Anion Gap 9, Glomerular Filtration Rate 59.3, Calcium Level 7.9L, Magnesium Level 2.5H, Total Bilirubin 0.8, Aspartate Amino Transf (AST/SGOT) 37, Alanine Aminotransferase (ALT/SGPT) 54, Alkaline Phosphatase 94, C-Reactive Protein, Quantitative 3.90H, Total Protein 6.9, Albumin 2.3L, Albumin/Globulin Ratio 0.50L, Vancomycin Level Trough 16.2 CBC/BMP Laboratory Tests 10/23/19 07:56 Microbiology Microbiology 10/20/19 Blood Culture - Preliminary, Resulted No Growth after 48 hours. All Specime... 10/20/19 Blood Culture - Preliminary, Resulted No Growth after 72 hours. All specime... 10/19/19 Stool Occult Blood ([facility]DEN) - Final, Complete 10/19/19 Blood Culture - Final, Complete Enterococcus Faecalis 10/19/19 Blood Culture - Final, Complete Enterococcus Faecalis Discharge Medications Scheduled Ampicillin Sod (Ampicillin Sodium) 2 Gm Vial, 2 GM IM Q4H Aspirin (Aspirin) 325 Mg Tablet, 325 MG PO DAILY, (Reported) Atorvastatin Calcium (Atorvastatin Calcium) 40 Mg Tablet, 40 MG PO QHS, (Reported) Bupropion HCl (Bupropion Xl) 300 Mg Tab, 300 MG PO DAILY, (Reported) Carvedilol (Carvedilol) 12.5 Mg Tablet, 12.5 MG PO BID, (Reported) Ceftriaxone in Is-Osm Dextrose (Ceftriaxone 2 gm-D5w Bag) 2 Gm/50 Ml Piggyback, 1 INJ IV BID Docusate Sodium (Docusate Sodium) 100 Mg Capsule, 100 MG PO TID, (Reported) Gabapentin (Gabapentin) 300 Mg Cap, 300 MG PO TID, (Reported) Heparin Sodium,Porcine (Heparin Sodium) 5,000 Unit/1 Ml Vial, 5,000 UNITS SQ Q8H Latanoprost (Xalatan) 0.005% 2.5ML Drops, 1 DROP OU QHS, (Reported) Multivitamins (Thera M Plus Tablet) 1 Each Tablet, 1 TAB PO DAILY, (Reported) Thiamine Mononitrate (Vit B1) (Vitamin B-1) 100 Mg Tablet, 100 MG PO DAILY, (Reported) Timolol Maleate (Timolol Maleate) 0.5% 5ML Drops, 1 DROP OU DAILY, (Reported) Scheduled PRN Dicyclomine HCl (Dicyclomine HCl) 10 Mg Capsule, 10 MG PO Q8HP PRN for abdominal spasms Docusate Sodium (Docusate Sodium) 100 Mg Capsule, 100 MG PO BID PRN for consitpation Methocarbamol (Methocarbamol) 750 Mg Tablet, 750 MG PO BID PRN for MUSCLE SPASMS, (Reported) Morphine Sulfate (Morphine Sulfate) 2 Mg/1 Ml Vial, 2 MG IV Q4H PRN for MODERATE PAIN (PS 5-7) Ondansetron HCl/Pf (Ondansetron HCl 4 mg/2 ml Vial) 4 Mg/2 Ml Vial, 4 MG IV Q6HP PRN for NAUSEA OR VOMITING Polyethylene Glycol 3350 (Miralax) 17 Gm Powd.pack, 17 GM PO BID PRN for CONSTIPATION, (Reported) Allergies Coded Allergies: No Known Allergies (Unverified , 02/14/19) SUBHASH LOPEZ MD Oct 23, 2019 09:51
--- NOTE | 2019-10-23 10:15 | REP ---
CT ABDOMEN AND PELVIS WITHOUT IV OR ORAL CONTRAST: HISTORY: Abdomen pain. Comparison CT study is from October 19, 2019. 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 There is no evidence of pleural effusion. The lung bases are essentially clear. There is no evidence of free intraperitoneal air. Liver and the spleen remain intact and unremarkable. No abnormalities noted in the gallbladder or the pancreas. The kidneys are unchanged. There is a peripheral cyst on the left. No hydronephrosis. There is evidence of a mesenteric hematoma surrounding the embolic metallic coil material in the small bowel mesentery. This is to the left of midline as was the case on October 19, 2019. The hematoma measures 4.0 cm in anterior to posterior by 4.7 cm medial to lateral by 6.3 cm cranial caudal. On October 18, these measurements were similar (3.5 x 4.9 x 5.9 cm). It does not appear to have changed since October 18 in size. No new hematoma is seen. No evidence of hemoperitoneum. Small and large bowel loops are unremarkable. There are bladder diverticula associated the posterior bladder wall. The urinary bladder remains somewhat distended. IMPRESSION: Mesenteric hematoma surrounding the site of the original hemorrhage in the small bowel mesentery and the metallic endovascular coil material; essentially unchanged from October 19, 2019 CT study. No new acute intra-abdominal abnormality seen. Electronically Signed by Bobby Strauss MD 10/23/2019 03:36 P
[2019-10-23] MEDS ORDERED: SLF 3 ML SYR IV SCH (14:00)
== END 2019-10-23 10:22 | disposition short-term general hospital (02) | DRG 346 ==
LOC: M ED 02:33 → M ED INP 07:59 → ENRESERVDT 08:28 → ENRESERVTM 08:28 → M PCU 09:34
PROVIDERS: ADMIT Internal Medicine; ATTEND Internal Medicine
PROC: 30233N1 Transfusion of Nonautologous Red Blood Cells into Peripheral Vein, Percutaneous Approach (ICD-10-PCS; 2019-10-19)
PROC: B246ZZ4 Ultrasonography of Right and Left Heart, Transesophageal (ICD-10-PCS; principal; 2019-10-20 13:38)
DX: I77.6 Arteritis, unspecified (principal); I33.0 Acute and subacute infective endocarditis; N17.9 Acute kidney failure, unspecified; J18.9 Pneumonia, unspecified organism; I11.0 Hypertensive heart disease with heart failure; I50.32 Chronic diastolic (congestive) heart failure; R78.81 Bacteremia; I72.8 Aneurysm of other specified arteries; I48.0 Paroxysmal atrial fibrillation; R10.12 Left upper quadrant pain; I25.10 Atherosclerotic heart disease of native coronary artery without angina pectoris; M54.16 Radiculopathy, lumbar region; D50.9 Iron deficiency anemia, unspecified; D63.8 Anemia in other chronic diseases classified elsewhere; B95.2 Enterococcus as the cause of diseases classified elsewhere; R63.4 Abnormal weight loss; N40.0 Benign prostatic hyperplasia without lower urinary tract symptoms; K59.00 Constipation, unspecified; Z95.5 Presence of coronary angioplasty implant and graft; Z86.73 Personal history of transient ischemic attack (TIA), and cerebral infarction without residual deficits; Z79.01 Long term (current) use of anticoagulants; Z95.828 Presence of other vascular implants and grafts; Z87.891 Personal history of nicotine dependence; Z79.82 Long term (current) use of aspirin; Z79.899 Other long term (current) drug therapy; Z87.440 Personal history of urinary (tract) infections

== ENCOUNTER → 2019-11-09 | Outpatient (REF) | payer OTHER ==
[~2019-11-09] MED LIST changes: +CEFT2INJ4 IV; +DICY1CAP8 PO; +DOCU100C16 PO; +DOCU100C17 PO; +HEPA500011 SQ; +MORP2INJ4 IV; +ONDA4INJ4 IV; +VITMTA PO; +XALA0.007 OU; +[UNRECOGNIZED DRUG - CODE] IM
[2019-11-09 18:24] LABS: BASO % 0.5 % (0.0-1.0); EOS # 0.2 10^3/uL (0.0-0.5); EOS % 2.9 % (0.0-3.0); HEMATOCRIT 27.6 % (42.0-52.0); HEMOGLOBIN 8.9 g/dl (13.5-17.5); LYMPH # 1.3 10^3/uL (1.5-5.0); LYMPH % 22.1 % (24.0-44.0); MEAN CORPUSCULAR HEMOGLOBIN 30.7 pg (27.0-33.0); MEAN CORPUSCULAR HGB CONC 32.2 g/dl (32.0-36.5); MEAN CORPUSCULAR VOLUME 95.2 fl (80.0-96.0); MONO # 0.6 10^3/uL (0.0-0.8); MONO % 9.6 % (0.0-5.0); NEUTROPHILS # 3.8 10^3/uL (1.5-8.5); NEUTROPHILS % 64.4 % (36.0-66.0); PLATELET COUNT, AUTOMATED 272 10^3/uL (150-450); WHITE BLOOD COUNT 5.9 10^3/uL (4.0-10.0)
[2019-11-09 18:54] LABS: ALBUMIN 2.8 GM/DL (3.2-5.2); BILIRUBIN,TOTAL 0.4 MG/DL (0.2-1.0); C REACTIVE PROTEIN QUANTITATIV 3.63 MG/DL (0.00-0.30); CALCIUM LEVEL 8.6 MG/DL (8.5-10.1); CREATININE FOR GFR 1.45 MG/DL (0.70-1.30); GLOMERULAR FILTRATION RATE 53.2 (>56); POTASSIUM SERUM 4.2 MEQ/L (3.5-5.1); TOTAL PROTEIN 6.9 GM/DL (6.4-8.2)
[2019-11-09 19:41] LABS: ERYTHROCYTE SEDIMENTATION RATE 83 mm/hr (0-20)
== END ==
LOC: M SHH 18:08
PROVIDERS: ATTEND Nurse Practitioner
DX: B95.2 Enterococcus as the cause of diseases classified elsewhere (principal); I38 Endocarditis, valve unspecified; I25.119 Atherosclerotic heart disease of native coronary artery with unspecified angina pectoris; Z95.0 Presence of cardiac pacemaker

== ENCOUNTER → 2019-11-13 | Outpatient (REF) | payer OTHER ==
[2019-11-13 20:19] LABS: BASO # 0.1 10^3/uL (0.0-0.2); BASO % 0.8 % (0.0-1.0); BILIRUBIN,TOTAL 0.3 MG/DL (0.2-1.0); C REACTIVE PROTEIN QUANTITATIV 1.92 MG/DL (0.00-0.30); CALCIUM LEVEL 8.5 MG/DL (8.5-10.1); CREATININE FOR GFR 1.41 MG/DL (0.70-1.30); EOS # 0.2 10^3/uL (0.0-0.5); EOS % 2.8 % (0.0-3.0); GLOMERULAR FILTRATION RATE 54.8 (>56); HEMATOCRIT 30.2 % (42.0-52.0); HEMOGLOBIN 9.6 g/dl (13.5-17.5); LYMPH % 24.4 % (24.0-44.0); MEAN CORPUSCULAR HEMOGLOBIN 30.5 pg (27.0-33.0); MEAN CORPUSCULAR HGB CONC 31.8 g/dl (32.0-36.5); MEAN CORPUSCULAR VOLUME 95.9 fl (80.0-96.0); MONO # 0.8 10^3/uL (0.0-0.8); MONO % 9.5 % (0.0-5.0); NEUTROPHILS % 62.2 % (36.0-66.0); PLATELET COUNT, AUTOMATED 365 10^3/uL (150-450); RED BLOOD COUNT 3.15 10^6/uL (4.30-6.10); TOTAL PROTEIN 7.3 GM/DL (6.4-8.2)
[2019-11-13 20:37] LABS: ERYTHROCYTE SEDIMENTATION RATE 65 mm/hr (0-20)
== END ==
LOC: M LAB REF 19:40
PROVIDERS: ATTEND Nurse Practitioner
DX: B95.2 Enterococcus as the cause of diseases classified elsewhere (principal); I38 Endocarditis, valve unspecified

== ENCOUNTER → 2019-11-20 | Outpatient (REF) | payer OTHER ==
[2019-11-20 21:21] LABS: BASO # 0.1 10^3/uL (0.0-0.2); EOS # 0.3 10^3/uL (0.0-0.5); EOS % 3.2 % (0.0-3.0); HEMOGLOBIN 10.8 g/dl (13.5-17.5); LYMPH # 1.5 10^3/uL (1.5-5.0); LYMPH % 18.5 % (24.0-44.0); MEAN CORPUSCULAR HEMOGLOBIN 31.4 pg (27.0-33.0); MEAN CORPUSCULAR HGB CONC 32.7 g/dl (32.0-36.5); MEAN CORPUSCULAR VOLUME 95.9 fl (80.0-96.0); MONO # 0.6 10^3/uL (0.0-0.8); NEUTROPHILS # 5.7 10^3/uL (1.5-8.5); NEUTROPHILS % 70.1 % (36.0-66.0); PLATELET COUNT, AUTOMATED 272 10^3/uL (150-450); RED BLOOD COUNT 3.44 10^6/uL (4.30-6.10); WHITE BLOOD COUNT 8.1 10^3/uL (4.0-10.0)
[2019-11-20 21:40] LABS: ERYTHROCYTE SEDIMENTATION RATE 60 mm/hr (0-20)
[2019-11-20 21:47] LABS: ALBUMIN 3.2 GM/DL (3.2-5.2); BILIRUBIN,TOTAL 0.3 MG/DL (0.2-1.0); C REACTIVE PROTEIN QUANTITATIV 0.71 MG/DL (0.00-0.30); CALCIUM LEVEL 8.7 MG/DL (8.5-10.1); CREATININE FOR GFR 1.54 MG/DL (0.70-1.30); GLOMERULAR FILTRATION RATE 49.5 (>56); POTASSIUM SERUM 4.1 MEQ/L (3.5-5.1); TOTAL PROTEIN 7.5 GM/DL (6.4-8.2)
== END ==
LOC: M SHH 21:09
PROVIDERS: ATTEND Nurse Practitioner
DX: I38 Endocarditis, valve unspecified (principal); B95.2 Enterococcus as the cause of diseases classified elsewhere

== ENCOUNTER → 2019-11-27 | Outpatient (REF) | payer OTHER ==
[2019-11-27 19:10] LABS: BASO # 0.1 10^3/uL (0.0-0.2); BASO % 0.9 % (0.0-1.0); EOS # 0.3 10^3/uL (0.0-0.5); EOS % 4.2 % (0.0-3.0); HEMATOCRIT 34.8 % (42.0-52.0); HEMOGLOBIN 11.3 g/dl (13.5-17.5); LYMPH # 1.8 10^3/uL (1.5-5.0); LYMPH % 27.2 % (24.0-44.0); MEAN CORPUSCULAR HEMOGLOBIN 31.2 pg (27.0-33.0); MEAN CORPUSCULAR HGB CONC 32.5 g/dl (32.0-36.5); MEAN CORPUSCULAR VOLUME 96.1 fl (80.0-96.0); MONO # 0.9 10^3/uL (0.0-0.8); MONO % 13.6 % (0.0-5.0); NEUTROPHILS # 3.6 10^3/uL (1.5-8.5); PLATELET COUNT, AUTOMATED 231 10^3/uL (150-450); RED BLOOD COUNT 3.62 10^6/uL (4.30-6.10); WHITE BLOOD COUNT 6.7 10^3/uL (4.0-10.0)
[2019-11-27 19:38] LABS: ALBUMIN 3.3 GM/DL (3.2-5.2); BILIRUBIN,TOTAL 0.3 MG/DL (0.2-1.0); CALCIUM LEVEL 9.1 MG/DL (8.5-10.1); CREATININE FOR GFR 1.54 MG/DL (0.70-1.30); GLOMERULAR FILTRATION RATE 49.5 (>56); TOTAL PROTEIN 7.6 GM/DL (6.4-8.2)
[2019-11-27 19:57] LABS: ERYTHROCYTE SEDIMENTATION RATE 56 mm/hr (0-20)
== END ==
LOC: M SHH 18:32
PROVIDERS: ATTEND Nurse Practitioner
DX: B95.2 Enterococcus as the cause of diseases classified elsewhere (principal); I38 Endocarditis, valve unspecified; I25.119 Atherosclerotic heart disease of native coronary artery with unspecified angina pectoris; Z95.0 Presence of cardiac pacemaker

== ENCOUNTER → 2019-12-04 | Outpatient (REF) | payer OTHER ==
[2019-12-04 18:28] LABS: BASO % 0.8 % (0.0-1.0); EOS # 0.3 10^3/uL (0.0-0.5); EOS % 4.8 % (0.0-3.0); HEMATOCRIT 37.4 % (42.0-52.0); HEMOGLOBIN 12.3 g/dl (13.5-17.5); LYMPH # 1.5 10^3/uL (1.5-5.0); LYMPH % 29.2 % (24.0-44.0); MEAN CORPUSCULAR HEMOGLOBIN 31.7 pg (27.0-33.0); MEAN CORPUSCULAR HGB CONC 32.9 g/dl (32.0-36.5); MEAN CORPUSCULAR VOLUME 96.4 fl (80.0-96.0); MONO # 0.8 10^3/uL (0.0-0.8); NEUTROPHILS # 2.6 10^3/uL (1.5-8.5); PLATELET COUNT, AUTOMATED 192 10^3/uL (150-450); RED BLOOD COUNT 3.88 10^6/uL (4.30-6.10); WHITE BLOOD COUNT 5.2 10^3/uL (4.0-10.0)
[2019-12-04 18:58] LABS: ALBUMIN 3.3 GM/DL (3.2-5.2); BILIRUBIN,TOTAL 0.3 MG/DL (0.2-1.0); C REACTIVE PROTEIN QUANTITATIV 0.35 MG/DL (0.00-0.30); CALCIUM LEVEL 8.8 MG/DL (8.5-10.1); CREATININE FOR GFR 1.56 MG/DL (0.70-1.30); GLOMERULAR FILTRATION RATE 48.7 (>56); TOTAL PROTEIN 7.4 GM/DL (6.4-8.2)
[2019-12-04 19:16] LABS: ERYTHROCYTE SEDIMENTATION RATE 47 mm/hr (0-20)
== END ==
LOC: M SHH 18:13
PROVIDERS: ATTEND Internal Medicine
DX: I33.0 Acute and subacute infective endocarditis (principal); B95.2 Enterococcus as the cause of diseases classified elsewhere; Z79.2 Long term (current) use of antibiotics

== ENCOUNTER → 2020-01-18 | Outpatient (CLI) | payer OTHER ==
[~2020-01-18] MED LIST changes: +ISOVUE-370 76% 100ML VIAL As Ordered ONE
--- NOTE | 2020-01-18 11:36 | REP ---
CT ANGIOGRAPHY OF THE ABDOMEN AND PELVIS WITH IV CONTRAST: HISTORY: Arterial and delayed phase. 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 Comparison CT study October 03, 2019. CT CONTRAST DOSE: 100 mL of intravenous Isovue [address] FINDINGS: Digital preliminary sawmill moulder operator radiograph demonstrates median sternotomy wires, a cardiac pacemaker, and embolization coils in the right mid abdomen. The bowel gas pattern is normal. On axial CT images, the lung bases are clear. No hepatic or splenic lesion is seen. No proximal visceral artery aneurysm is appreciated. There is some vascular calcification at the origin of the renal arteries bilaterally. Normal caliber aorta. There is left colonic diverticulosis. Normal appendix. There are small bladder diverticula. There is spray artifact emanating from the embolic coil material in the right lower quadrant small bowel mesentery. There is no evidence of arterial pseudoaneurysm, residual hematoma, or arteriovenous malformation or fistula. Delayed images show no additional finding. IMPRESSION: The previously noted hematoma has resolved. Embolic coil material is seen in the right lower quadrant mesentery. There is no evidence of mesenteric aneurysm or pseudoaneurysm today. Electronically Signed by Bobby Strauss MD 01/18/2020 11:49 A
== END ==
LOC: M RAD 09:55
PROVIDERS: ATTEND Radiology Diagnostic Radiology
DX: K57.92 Diverticulitis of intestine, part unspecified, without perforation or abscess without bleeding (principal); Z86.79 Personal history of other diseases of the circulatory system; Z95.0 Presence of cardiac pacemaker
CPT/HCPCS: 74174; Q9967

== ENCOUNTER → 2020-12-02 | Outpatient (CLI) | payer OTHER ==
[~2020-12-02] MED LIST changes: +ATOR80TA59 PO; +CALC1TAB26 PO; +ECOT81TA5 PO; +GABA-282 PO; -GABA-843 PO; -ISOVUE-370 76% 100ML VIAL As Ordered ONE; -LISI-542 PO; +LISI-898 PO; +METH-1165 PO; -METH750T2 PO; +NITR0.4S14 SL
== END ==
LOC: M LABSMTC 11:11
PROVIDERS: ATTEND Anesthesiology
DX: Z01.818 Encounter for other preprocedural examination (principal); Z11.52 Encounter for screening for COVID-19

== ENCOUNTER 2020-12-04 07:59 | Day surgery (SDC) | payer OTHER ==
[~2020-12-04] VITALS: Ht 172.7 cm; Wt 78.9 kg
[~2020-12-04 07:59] MED LIST changes: +NS 1,000 ML IV ONE
[2020-12-04] MEDS ORDERED: propofoL 200 MG/20 ML VIAL As Ordered ONE (09:25)
[2020-12-04] MEDS ORDERED: LIDOCAINE 2% 100MG/5ML SDV (FOR ANES.) As Ordered ONE (09:25)
--- NOTE | 2020-12-04 09:52 | ROOR ---
Patient Name: Leoncio Toribio Procedure Date: 12/04/2020 9:26 AM Date of : 1960 Age: 60 Room: [facility] Gender: Male Note Status: Finalized Procedure: Upper GI endoscopy Indications: Suspected esophageal reflux, Follow-up of gastro-esophageal reflux disease Providers: DO Eva Jewell MD: Jennifer Patton MD Requesting Provider: Medicines: Propofol per Anesthesia Complications: No immediate complications. Procedure: Pre-Anesthesia Assessment: - Prior to the procedure, a History and Physical was performed, and patient medications and allergies were reviewed. The patient is competent. The risks and benefits of the procedure and the sedation options and risks were discussed with the patient. All questions were answered and informed consent was obtained. Patient identification and proposed procedure were verified by the physician, the nurse, the observation nurse and the flight technician in the endoscopy suite. Mental Status Examination: alert and oriented. Airway Examination: normal oropharyngeal airway and neck mobility. Respiratory Examination: clear to auscultation. CV Examination: normal. Prophylactic Antibiotics: The patient does not require prophylactic antibiotics. Prior Anticoagulants: The patient has taken Eliquis (apixaban), last dose was 6 days prior to procedure. ASA Grade Assessment: II - A patient with mild systemic disease. After reviewing the risks and benefits, the patient was deemed in satisfactory condition to undergo the procedure. The anesthesia plan was to use monitored anesthesia care (MAC). Immediately prior to administration of medications, the patient was re-assessed for adequacy to receive sedatives. The heart rate, respiratory rate, oxygen saturations, blood pressure, adequacy of pulmonary ventilation, and response to care were monitored throughout the procedure. The physical status of the patient was re-assessed after the procedure. The Endoscope was introduced through the mouth, and advanced to the second part of duodenum. The upper GI endoscopy was accomplished without difficulty. The patient tolerated the procedure well. Findings: The exam was otherwise without abnormality. Biopsies were taken with a cold forceps in the prepyloric region of the stomach for Helicobacter pylori testing. Estimated blood loss was minimal. Impression: - The examination was otherwise normal. - Biopsies were taken with a cold forceps for Helicobacter pylori testing. Recommendation: - Patient has a contact number available for emergencies. The signs and symptoms of potential delayed complications were discussed with the patient. Return to normal activities tomorrow. Written discharge instructions were provided to the patient. - Await pathology results. - Return to my office at appointment to be scheduled. Procedure Code(s): --- Professional --- 86887, Esophagogastroduodenoscopy, flexible, transoral; with biopsy, single or multiple Diagnosis Code(s): --- Professional --- K21.9, Gastro-esophageal reflux disease without esophagitis CPT copyright 2019 [employer] [place] [employer]. All rights reserved. The codes documented in this report are preliminary and upon gill box tender review may be revised to meet current compliance requirements. Akira Frausto DO 12/04/2020 9:52:16 AM Electronically signed by Akira Frausto DO Number of Addenda: 0 Note Initiated On: 12/04/2020 9:26 AM Estimated Blood Loss: Estimated blood loss was minimal.
--- NOTE | 2020-12-04 09:55 | ROOR ---
Patient Name: Leoncio Toribio Procedure Date: 12/04/2020 9:26 AM Date of : 1960 Age: 60 Room: [facility] Gender: Male Note Status: Finalized Procedure: Colonoscopy Indications: Screening for colorectal malignant neoplasm Providers: DO Eva Jewell MD: Jennifer Patton MD Requesting Provider: Medicines: Propofol per Anesthesia Complications: No immediate complications. Procedure: Pre-Anesthesia Assessment: - Prior to the procedure, a History and Physical was performed, and patient medications and allergies were reviewed. The patient is competent. The risks and benefits of the procedure and the sedation options and risks were discussed with the patient. All questions were answered and informed consent was obtained. Patient identification and proposed procedure were verified by the physician, the nurse, the specialty finishing utility person and the logistics technician in the endoscopy suite. Mental Status Examination: alert and oriented. Airway Examination: normal oropharyngeal airway and neck mobility. Respiratory Examination: clear to auscultation. CV Examination: normal. Prophylactic Antibiotics: The patient does not require prophylactic antibiotics. Prior Anticoagulants: The patient has taken Eliquis (apixaban), last dose was 6 days prior to procedure. ASA Grade Assessment: II - A patient with mild systemic disease. After reviewing the risks and benefits, the patient was deemed in satisfactory condition to undergo the procedure. The anesthesia plan was to use monitored anesthesia care (MAC). Immediately prior to administration of medications, the patient was re-assessed for adequacy to receive sedatives. The heart rate, respiratory rate, oxygen saturations, blood pressure, adequacy of pulmonary ventilation, and response to care were monitored throughout the procedure. The physical status of the patient was re-assessed after the procedure. The Colonoscope was introduced through the anus and advanced to the cecum, identified by appendiceal orifice and ileocecal valve. The colonoscopy was performed without difficulty. The patient tolerated the procedure well. Findings: A few small-mouthed diverticula were found in the sigmoid colon. Non-bleeding internal hemorrhoids were found during retroflexion. The hemorrhoids were Grade I (internal hemorrhoids that do not prolapse). Impression: - Diverticulosis in the sigmoid colon. - Non-bleeding internal hemorrhoids. - No specimens collected. Recommendation: - Patient has a contact number available for emergencies. The signs and symptoms of potential delayed complications were discussed with the patient. Return to normal activities tomorrow. Written discharge instructions were provided to the patient. - Repeat colonoscopy in 5-10 years for screening purposes. - Return to my office PRN. - Resume Eliquis (apixaban) at prior dose today. Procedure Code(s): --- Professional --- G0121, Colorectal cancer screening; colonoscopy on individual not meeting criteria for high risk Diagnosis Code(s): --- Professional --- Z12.11, Encounter for screening for malignant neoplasm of colon K64.0, First degree hemorrhoids K57.30, Diverticulosis of large intestine without perforation or abscess without bleeding CPT copyright 2019 [employer]. All rights reserved. The codes documented in this report are preliminary and upon touch up painter review may be revised to meet current compliance requirements. Akira Frausto DO 12/04/2020 9:55:30 AM Electronically signed by Akira Frausto DO Number of Addenda: 0 Note Initiated On: 12/04/2020 9:26 AM Estimated Blood Loss: Estimated blood loss: none.
[2020-12-04 10:15] VITALS: BP 161/95
== END 2020-12-04 10:22 | disposition home or self-care (01) ==
LOC: M OPP 07:59
PROVIDERS: ATTEND Surgery
DX: Z12.11 Encounter for screening for malignant neoplasm of colon (principal); K57.30 Diverticulosis of large intestine without perforation or abscess without bleeding; K64.0 First degree hemorrhoids; K21.9 Gastro-esophageal reflux disease without esophagitis; I25.2 Old myocardial infarction; Z95.5 Presence of coronary angioplasty implant and graft; F17.210 Nicotine dependence, cigarettes, uncomplicated; Z79.899 Other long term (current) drug therapy; Z86.73 Personal history of transient ischemic attack (TIA), and cerebral infarction without residual deficits

== ENCOUNTER 2020-12-05 22:38 | Day surgery (SDC) | payer OTHER ==
[~2020-12-05] VITALS: Ht 172.7 cm; Wt 79.2 kg
[~2020-12-05 22:38] MED LIST changes: -NS 1,000 ML IV ONE
[2020-12-06] VITALS (7 sets, daily range): BP systolic 104–119; BP diastolic 62–72
[2020-12-06] MEDS ORDERED: ONDANSETRON 4MG/2ML VIAL IV ONE (01:45)
[2020-12-06 02:28] LABS: INR 1.39; PARTIAL THROMBOPLASTIN TIME 37.3 SECONDS (24.2-38.5); PROTHROMBIN TIME 17.4 SECONDS (12.5-14.3)
[2020-12-06 02:31] LABS: BASO % 0.2 % (0.0-1.0); EOS % 0.1 % (0.0-3.0); HEMATOCRIT 41.8 % (42.0-52.0); HEMOGLOBIN 14.4 g/dl (13.5-17.5); LYMPH # 1.3 10^3/uL (1.5-5.0); LYMPH % 8.1 % (24.0-44.0); MEAN CORPUSCULAR HEMOGLOBIN 33.6 pg (27.0-33.0); MEAN CORPUSCULAR HGB CONC 34.4 g/dl (32.0-36.5); MEAN CORPUSCULAR VOLUME 97.4 fl (80.0-96.0); MONO # 0.8 10^3/uL (0.0-0.8); MONO % 5.3 % (2.0-8.0); NEUTROPHILS # 13.3 10^3/uL (1.5-8.5); NEUTROPHILS % 85.7 % (36.0-66.0); PLATELET COUNT, AUTOMATED 169 10^3/uL (150-450); RED BLOOD COUNT 4.29 10^6/uL (4.30-6.10); WHITE BLOOD COUNT 15.5 10^3/uL (4.0-10.0)
[2020-12-06] MEDS: NS 1,000 ML IV SCH ×2 (02:58→07:01)
[2020-12-06] MEDS: fentaNYL 100 MCG/2 ML INJECTION (J3010) IV PRN ×4 (03:01→09:27)
[2020-12-06] MEDS: GASTROGRAFIN SOLUTION 30ML PO SCH ×2 (03:06→03:36)
--- NOTE | 2020-12-06 03:32 | REPVR ---
PROCEDURE INFORMATION: Exam: XR Complete Acute Abdomen Series Exam date and time: 12/06/2020 2:40 AM Age: 60 years old Clinical indication: Other: Abdominal pain TECHNIQUE: Imaging protocol: XR complete acute abdomen series, including 2 or more views of the abdomen and a single view chest. COMPARISON: CT ABD PELVIS W/O CONTRAST 10/23/2019 8:04 AM FINDINGS: Lungs: Normal. No consolidation. Left approach dual lead pacemaker. Pleural spaces: Normal. No pleural effusions. No pneumothorax. Heart/Mediastinum: Normal. No cardiomegaly. Gastrointestinal tract: Nonspecific single loop of dilated air-filled small bowel loop in the left abdomen. Intraperitoneal space: Coiling material in the right abdomen. Bones/joints: Degenerative changes of the lumbar spine. Soft tissues: Normal. IMPRESSION: Nonspecific single loop of air-filled dilated small bowel loop in the left abdomen. Electronically signed by: Bebo Chang On 12/06/2020 03:32:13 AM
--- NOTE | 2020-12-06 05:18 | REPVR ---
PROCEDURE INFORMATION: Exam: CT Abdomen And Pelvis Without Contrast Exam date and time: 12/06/2020 2:37 AM Age: 60 years old Clinical indication: Abdominal pain; Generalized; Additional info: Diffuse abd pain S/P colonoscopy TECHNIQUE: Imaging protocol: Computed tomography of the abdomen and pelvis without contrast. Radiation optimization: All CT scans at this facility use at least one of these dose optimization techniques: automated exposure control; mA and/or kV adjustment per patient size (includes targeted exams where dose is matched to clinical indication); or iterative reconstruction. COMPARISON: CT ABD PELVIS W/O CONTRAST 10/23/2019 8:04 AM FINDINGS: Tubes, catheters and devices: Pacemaker in position. Lungs: Minimal bibasilar bullous changes with mild fibro-atelectatic change, greatest in the right lower lobe. Calcified granuloma in the left lower lobe. Liver: Normal. No mass. Gallbladder and bile ducts: Normal. No calcified stones. No ductal dilation. Pancreas: Normal. No ductal dilation. Spleen: Normal. No splenomegaly. Adrenal glands: Normal. No mass. Kidneys and ureters: There is a left renal cyst measuring up to 2.2 cm which is redemonstrated since the prior study with question of slight increase. Stomach and bowel: There is minimal colonic diverticulosis without evidence of diverticulitis. Appendix: The appendix is enlarged measuring 9 mm with surrounding induration which is new since the prior study. Intraperitoneal space: Unremarkable. No free air. No significant fluid collection. Vasculature: There is mild calcification of the abdominal aorta with extension into the iliac arteries. Metallic densities are noted in the right lower quadrant consistent with embolization coils and appear to have shifted from the left since the prior study. Lymph nodes: Unremarkable. No enlarged lymph nodes. Urinary bladder: Unremarkable as visualized. Reproductive: Unremarkable as visualized. Bones/joints: Status post sternotomy. Soft tissues: Unremarkable. IMPRESSION: 1. Mild appendicitis, new since 10/23/2019. 2. Minimal bibasilar bullous changes with mild fibro-atelectatic change, greatest in the right lower lobe. 3. Minimal colonic diverticulosis without diverticulitis. Electronically signed by: Teddy Mcclelland On 12/06/2020 05:17:06 AM
[2020-12-06] MEDS ORDERED: PIPERACILLIN/TAZOBACTAM SOD 3.375 GM in D5W MINI-BAG PLUS 50 ML IV ONE (05:25)
[2020-12-06] MEDS ORDERED: BUPR-368 PO (05:40)
[2020-12-06] MEDS ORDERED: C-251TAB PO (05:40)
[2020-12-06] MEDS ORDERED: ASPI81CH33 PO (05:40)
[2020-12-06] MEDS ORDERED: MORPHINE 2 MG/ML 1ML VIAL (J2270) IV PRN ×2 (07:30→18:00)
[2020-12-06] MEDS ORDERED: ACETAMINOPHEN TAB 650MG DOSE (2X325MG) PO PRN ×2 (07:30→17:55)
--- NOTE | 2020-12-06 07:43 | ECGEPIP ---
[facility] - ED Test Date: 2020-12-06 Pat Name: LIS MARC Department: Room: - Gender: Male [employer] Administrator: hc : 1960 Requested By: Pepe Garcia Order Number: [id number] Reading MD: Pepe Ma Measurements Intervals [place] Rate: 102 P: 65 AL: 164 QRS: -66 QRSD: 140 T: 92 QT: 396 QTc: 516 Interpretive Statements Atrial-sensed ventricular-paced rhythm RHYTHM/RATE CHANGE COMPARED TO 10/19/19 Electronically Signed on 12-06-2020 7:43:20 EDT by Pepe Ma
[2020-12-06] MEDS ORDERED: KETOROLAC 30 MG/ML 1ML VIAL IV PRN ×2 (08:00→17:55)
[2020-12-06] MEDS ORDERED: LR 1,000 ML IV SCH ×2 (08:00→18:00)
[2020-12-06] MEDS ORDERED: CARVedilol 6.25 MG TAB PO SCH (09:00)
[2020-12-06] MEDS ORDERED: TIMOLOL MALEATE 0.5% OPHTH SOLN 5 ML OU SCH (09:00)
[2020-12-06] MEDS ORDERED: PANTOPRAZOLE 40MG VIAL (C9113 PER 1) IV SCH (09:00)
[2020-12-06] MEDS ORDERED: ONDANSETRON 4MG/2ML VIAL IV PRN ×2 (09:00→18:00)
[2020-12-06] MEDS ORDERED: AMPICILLIN SOD/SULBACTAM SOD 3 GM in D5W MINI-BAG PLUS 100 ML IV SCH (12:00)
[2020-12-06] MEDS ORDERED: LIDOCAINE 1% SDV 30ML VIAL As Ordered ONE (15:50)
[2020-12-06] MEDS ORDERED: BUPIVACAINE HCL 0.25% 30ML VIAL As Ordered ONE (15:50)
[2020-12-06] MEDS ORDERED: ROCURONIUM BROMIDE 50 MG/5 ML VIAL As Ordered ONE (15:58)
[2020-12-06] MEDS ORDERED: LIDOCAINE 2% 100MG/5ML SDV (FOR ANES.) As Ordered ONE (15:58)
[2020-12-06] MEDS ORDERED: propofoL 200 MG/20 ML VIAL As Ordered ONE (15:58)
[2020-12-06] MEDS ORDERED: fentaNYL 250 MCG/5 ML INJECTION (J3010) As Ordered ONE (15:58)
[2020-12-06] MEDS ORDERED: MIDAZOLAM INJ 2MG/2ML VIAL (J2250 PER 1MG) As Ordered ONE (15:59)
--- NOTE | 2020-12-06 16:10 | HPEPDOC ---
General Surgery H&P Date of Admission December 06, 2020 Attending Physician: ANALI RAY MD History and Physical CHIEF COMPLAINT:bloating, abdominal pain HISTORY OF PRESENT ILLNESS: 60 M with extensive comorbidities who just had colonoscopy two days ago, and since then has been feeling bloated. Initially was having some crampy abdominal pain. Yesterday started having lower abdominal pain which is sharp and constant. He only had dolores kwan and crackers due to lack of appetite. He felt bloated the whole day. He is passing some flatus, has not had any BM since colonscopy, denies fevers or chills. ALLERGIES: Please see below. HOME MEDICATIONS: Please see below. 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 REVIEW OF SYSTEMS: GENERAL: baseline reports he is able to do light activities for a few hours before he gets tired, denies chest pains, shortness of breath. He has retired early by still remains active. HEENT: Denies vision or hearing problems. NECK: [Denies any neck pain]. CARDIOVASCULAR: [Denies chest pain and palpitations]. MUSCULOSKELETAL: [Denies arthralgias, back pain and thrombophlebitis]. SKIN: [Denies rash]. NEUROLOGIC: [Denies headache, stroke and transient ischemic attack]. PSYCHIATRIC: [Denies anxiety and depression]. ENDOCRINE: [Denies thyroid disease]. HEMATOLOGY/ONCOLOGY: [Denies any bleeding or clotting disorder]. HEART: [Denies any chest pains, palpitations, paroxysmal dyspnea, orthopnea]. PULMONARY: [Denies chronic cough, dyspnea and wheezing]. GASTROINTESTINAL: [Denies rectal bleeding, family history of colon cancer, constipation, diarrhea, dysphagia, heartburn and jaundice]. GENITOURINARY: [Denies dysuria, frequency, hematuria and nocturia]. ENDOCRINE: [Denies polydipsia, polyphagia, polyuria, heat or cold intolerance]. INFECTIOUS: [Denies any recent upper respiratory tract infection, UTI, need for use of antibiotics]. NUTRITION: [Reports good appetite]. PHYSICAL EXAMINATION: VITAL SIGNS: Please see below. GENERAL APPEARANCE: [Patient seen at bedside, appears comfortable]. [Awake, alert, oriented]. HEENT: [Normocephalic, atraumatic. [place] palpebral conjunctivae. Anicteric sclerae. Lips moist]. CHEST: [No chest wall abnormalities. Normal respiratory motion/effort]. NECK: [Supple. No thyromegaly. No lymphadenopathies]. LUNGS: [Lung sounds are clear to auscultation bilaterally. No wheezing appreciated]. HEART: [No chest wall abnormalities. Heart rate and rhythm are regular with no murmurs]. ABDOMEN: [Abdomen is obese, soft, slightly rounded. No hepatosplenomegaly. No umbilical or groin herniations, nondistended. No noticeable rebound or guarding. No grimacing with palpation. No rebound tenderness. No masses appreciated]. SKIN: [Warm, moist]. EXTREMITIES: [Extremities have no deformities. No edema identified]. NEUROLOGICAL: . ANCILLARIES: . LABORATORY DATA: Please see below. MICROBIOLOGY: Please see below. IMAGING: . IMPRESSION AND PLAN: . Vital Signs Vital Signs Date Time Temp Pulse Resp B/P (MAP) Pulse Ox O2 Delivery O2 Flow Rate FiO2 12/06/20 14:00 98.7 97 18 104/72 (83) 92 Room Air Home Medications Scheduled Apixaban (Eliquis) 5 Mg Tablet, 5 MG PO BID, (Reported) Ascorbic Acid (Vitamin C) 250 Mg Tablet, 250 MG PO DAILY, (Reported) Aspirin (Aspirin) 81 Mg Tab.chew, 81 MG PO DAILY, (Reported) Atorvastatin Calcium (Atorvastatin Calcium) 80 Mg Tablet, 80 MG PO QHS, (Reported) Bupropion HCl (Bupropion Xl) 300 Mg Tab.er.24h, 300 MG PO DAILY, (Reported) Calcium Carbonate/Vitamin D3 (Calcium 600-Vit D3 800 Tablet) 1 Each Tablet, 1 TAB PO DAILY, (Reported) Carvedilol (Carvedilol) 6.25 Mg Tablet, 6.25 MG PO BID, (Reported) Gabapentin (Gabapentin) 300 Mg Cap, 300 MG PO TID, (Reported) Latanoprost (Xalatan) 0.005% 2.5ML Drops, 1 DROP OU QHS, (Reported) Multivitamins (Thera M Plus Tablet) 1 Each Tablet, 1 TAB PO DAILY, (Reported) Thiamine Mononitrate (Vit B1) (Vitamin B-1) 100 Mg Tablet, 100 MG PO DAILY, (Reported) Timolol Maleate (Timolol Maleate) 0.5% 5ML Drops, 1 DROP OU DAILY, (Reported) Scheduled PRN Nitroglycerin (Nitroglycerin) 0.4 Mg Tab.subl, 0.4 MG SL PRN PRN for CHEST PAIN, (Reported) Allergies Coded Allergies: No Known Allergies (Unverified , 12/02/20) A-FIB/CHADSVASC A-FIB History Current/History of A-Fib/PAF?: No Current PO Anticoag Therapy: Yes ANALI RAY MD December 06, 2020 16:10
[2020-12-06] MEDS ORDERED: PHENYLephrine 500MCG 5ML (100MCG/ML) SYRINGE As Ordered ONE ×2 (16:24→16:26)
[2020-12-06] MEDS ORDERED: dexameTHASONE 4 MG/ML 1ML VIAL (J1100 PER 1MG) As Ordered ONE (16:24)
[2020-12-06] MEDS ORDERED: ZOSYN 3.375GM VIAL (J2543) As Ordered ONE (16:25)
[2020-12-06] MEDS ORDERED: METOCLOPRAMIDE INJ 10MG/2ML VIAL (J2765 PER 1) As Ordered ONE (16:37)
[2020-12-06] MEDS ORDERED: ONDANSETRON 4MG/2ML VIAL As Ordered ONE (16:37)
[2020-12-06] MEDS ORDERED: KETOROLAC 60MG 2ML VIAL As Ordered ONE (16:37)
[2020-12-06] MEDS ORDERED: ACETAMINOPHEN 1000MG 100ML IV BTL (OFIRMEV) (J0131 PER 10MG) As Ordered ONE (16:37)
[2020-12-06] MEDS ORDERED: SUGAMMADEX SODIUM 500 MG/5 ML VIAL (BRIDION) As Ordered ONE (16:38)
[2020-12-06] MEDS ORDERED: METOPROLOL 5 MG/5 ML VIAL As Ordered ONE (17:11)
[2020-12-06] MEDS ORDERED: PERCOCET 5MG/325MG TAB PO PRN (17:55)
[2020-12-06] MEDS ORDERED: oxyCODONE 5MG TAB PO PRN (18:00)
[2020-12-06] MEDS ORDERED: fentaNYL 100 MCG/2 ML INJECTION (J3010) IV PRN (18:00)
[2020-12-06] MEDS: LR 1,000 ML IV SCH (18:46)
[2020-12-06] MEDS ORDERED: LATANOPROST 0.005% OPHTH SOLN 2.5 ML OU SCH (21:00)
[2020-12-06] MEDS ORDERED: ATORVASTATIN 20 MG TAB PO SCH (21:00)
[2020-12-06] MEDS: GABAPENTIN 300 MG CAP PO SCH (21:17)
[2020-12-06] MEDS: PIPERACILLIN/TAZOBACTAM SOD 3.375 GM in D5W MINI-BAG PLUS 50 ML IV SCH (21:18)
[2020-12-07] VITALS (7 sets, daily range): BP systolic 101–138; BP diastolic 64–72; O2SAT 92–95
[2020-12-07] MEDS: PIPERACILLIN/TAZOBACTAM SOD 3.375 GM in D5W MINI-BAG PLUS 50 ML IV SCH ×3 (03:25→17:31)
[2020-12-07 06:31] LABS: BASO % 0.1 % (0.0-1.0); LYMPH # 0.7 10^3/uL (1.5-5.0); LYMPH % 5.7 % (24.0-44.0); MEAN CORPUSCULAR HEMOGLOBIN 34.4 pg (27.0-33.0); MEAN CORPUSCULAR HGB CONC 34.4 g/dl (32.0-36.5); MONO # 0.4 10^3/uL (0.0-0.8); MONO % 2.9 % (2.0-8.0); NEUTROPHILS # 10.8 10^3/uL (1.5-8.5); NEUTROPHILS % 90.7 % (36.0-66.0); PLATELET COUNT, AUTOMATED 139 10^3/uL (150-450); WHITE BLOOD COUNT 11.9 10^3/uL (4.0-10.0)
[2020-12-07 06:32] LABS: HEMOGLOBIN 12.4 g/dl (13.5-17.5)
[2020-12-07 06:39] LABS: CALCIUM LEVEL 8.2 MG/DL (8.8-10.2); CREATININE FOR GFR 1.3 MG/DL (0.70-1.30); GLOMERULAR FILTRATION RATE 59.9 (>49)
--- NOTE | 2020-12-07 08:44 | ROOPDOC ---
[facility] Report Of Operation Report of Operation DATE OF PROCEDURE: 12/06/20 PREPROCEDURE DIAGNOSES: acute appendicitis. POSTPROCEDURE DIAGNOSES: Perforated appendicitis. PROCEDURE: Laparoscopic Appendectomy. SURGEON: Jose Valdez MD SENIOR WINDOWS SYSTEMS ADMINISTRATOR: ANESTHESIA: General Endotracheal Anesthesia ESTIMATED BLOOD LOSS: Approximately 20 mL. COMPLICATIONS: none. REMARKS: 60 M with extensive cardiac comorbidities, on Eliquis., presented to ED one day after colonoscopy was performed. He complains of lower abdominal pain. He was ruled out for perforation but was found to have acute appendicitis on CT consistent with physical examination findings of mainly right lower quadrant tenderness with guarding and leukocytosis PROCEDURE NOTE: perforated, gangrenous gallbladder at the base of the appendix, retrocecal course of the appendix, inflamed mesoappendix and surrounding soft tissue around appendix, terminal ileum and cecum, small amount of scattered purulent appearing fluid in the right gutter and b/w small bowel loops in the pelvis. No organized abscess. DESCRIPTION OF PROCEDURE: . JOSE VALDEZ MD December 07, 2020 08:44
[2020-12-07] MEDS ORDERED: THIAMINE 100 MG TAB PO SCH (09:00)
[2020-12-07] MEDS ORDERED: buPROPion **XL** TABLET 150MG (WELLBUTRIN XL) PO SCH (09:00)
[2020-12-07] MEDS: GABAPENTIN 300 MG CAP PO SCH ×2 (09:20→17:33)
[2020-12-07] MEDS: LR 1,000 ML IV SCH (09:21)
--- NOTE | 2020-12-07 14:36 | IPN ---
PROGRESS NOTE DATE: 12/07/2020 SUBJECTIVE: Patient is status post perforated appendicitis, although has been doing relatively well overnight. His white count has come down to 11.9 this morning and his temperature has been afebrile. His Amandeep-Irving drain is draining some serosanguinous, but otherwise, no other significant vital sign abnormalities. PHYSICAL EXAMINATION: He is relatively distended, tympanitic, and he just had breakfast, ate the entire try. His incisions are clean, dry, healing without any erythema, drainage or discharge. IMPRESSION/PLAN: Patient is doing well this morning; however, I am a little concerned that he has slow progression of his bowel functions associated with his perforated appendicitis. I have asked him to go a little bit slower with his diet and we will see how he is doing this afternoon. If he has bowel movements and he is feeling better, there is potential that we may be able to discharge him home on oral antibiotics later on today, but I anticipate may need to stay until tomorrow for continued antibiotics and then discharge home on some oral antibiotics for 5-7 days.
[2020-12-07] MEDS ORDERED: AMOX500T2 PO (17:15)
[2020-12-07] MEDS ORDERED: AUGMENTIN 500 MG TAB PO SCH (21:00)
== END 2020-12-07 17:51 | disposition home or self-care (01) ==
LOC: M ED 22:38 → M SDC 12-06 07:29 → M MSPAV 12-06 07:29 → ENRESERV 12-06 08:27 → M ED 12-06 10:07 → M SDC 12-06 14:55
PROVIDERS: ATTEND Surgery
DX: K35.33 Acute appendicitis with perforation, localized peritonitis, and gangrene, with abscess (principal); I10 Essential (primary) hypertension; I25.10 Atherosclerotic heart disease of native coronary artery without angina pectoris; Z86.73 Personal history of transient ischemic attack (TIA), and cerebral infarction without residual deficits; Z98.61 Coronary angioplasty status; Z95.0 Presence of cardiac pacemaker; Z79.01 Long term (current) use of anticoagulants; Z79.82 Long term (current) use of aspirin; Z79.899 Other long term (current) drug therapy
CPT/HCPCS: 36415; 44970; 74021; 80047; 80048; 83605; 85025; 85610; 85730; 86850; 86900; 86901; 87070; 87075; 87076; 87077; 87186; 87205; 87798; 88304; 93005; 93041; 94760; 96361; 96365; 96375; 96376; 99285; J0131; J1100; J1885; J2250; J2370; J2405; J2543; J2765; J3010; Q9963

== ENCOUNTER → 2021-05-12 | Outpatient (CLI) | payer OTHER ==
[~2021-05-12] MED LIST changes: +AMOX500T2 PO; +BUPR-368 PO; +C-251TAB PO
[2021-05-12 17:31] LABS: ALBUMIN 3.6 GM/DL (3.2-5.2); BILIRUBIN,TOTAL 0.5 MG/DL (0.2-1.0); CALCIUM LEVEL 8.9 MG/DL (8.8-10.2); CHOLESTEROL RISK RATIO 2.727 (<5); CREATININE FOR GFR 1.39 MG/DL (0.70-1.30); GLOMERULAR FILTRATION RATE 55.5 (>49); POTASSIUM SERUM 4.3 MEQ/L (3.5-5.1); TOTAL PROTEIN 7.2 GM/DL (6.4-8.2)
--- NOTE | 2021-05-12 19:24 | REP ---
INDICATION: PAIN IN RIGHT HAND - LABS FIRST COMPARISON: 08/14/2017 TECHNIQUE: AP, lateral, bilateral oblique views right. FINDINGS: Osseous structures demonstrate generalized age-related changes. No overt osteoarthritic degenerative changes are appreciated. There is evidence for old healed 5th metacarpal bone fracture (boxer's fracture) . No acute fracture or dislocation. IMPRESSION: Generalized age-related changes.. Old 5th metacarpal bone fracture. <Electronically signed by Felix Gaines > 05/12/21 [id number]
== END ==
LOC: M LAB 16:17
PROVIDERS: ATTEND Nurse Practitioner Family
DX: I10 Essential (primary) hypertension (principal); I25.10 Atherosclerotic heart disease of native coronary artery without angina pectoris; Z87.81 Personal history of (healed) traumatic fracture; M79.641 Pain in right hand

== ENCOUNTER → 2021-10-07 | Outpatient (CLI) | payer OTHER ==
[~2021-10-07] MED LIST changes: -LEVO500T3; +LEVO500T4; -LISI-898 PO; +LISI5TAB11 PO
== END ==
LOC: M RAD 09:16
PROVIDERS: ATTEND Nurse Practitioner Family
DX: Z87.891 Personal history of nicotine dependence (principal)

== ENCOUNTER → 2021-11-06 | Outpatient (CLI) | payer OTHER ==
[2021-11-06 15:18] LABS: BASO % 0.6 % (0.0-1.0); EOS # 0.1 10^3/uL (0.0-0.5); EOS % 2.1 % (0.0-3.0); HEMATOCRIT 39.9 % (42.0-52.0); HEMOGLOBIN 13.9 g/dl (13.5-17.5); LYMPH # 1.6 10^3/uL (1.5-5.0); LYMPH % 23.9 % (24.0-44.0); MEAN CORPUSCULAR HEMOGLOBIN 34.4 pg (27.0-33.0); MEAN CORPUSCULAR HGB CONC 34.8 g/dl (32.0-36.5); MEAN CORPUSCULAR VOLUME 98.8 fl (80.0-96.0); MONO # 0.9 10^3/uL (0.0-0.8); MONO % 13.5 % (2.0-8.0); NEUTROPHILS # 4.1 10^3/uL (1.5-8.5); NEUTROPHILS % 59.8 % (36.0-66.0); PLATELET COUNT, AUTOMATED 166 10^3/uL (150-450); RED BLOOD COUNT 4.04 10^6/uL (4.30-6.10); WHITE BLOOD COUNT 6.8 10^3/uL (4.0-10.0)
[2021-11-06 15:24] LABS: ALBUMIN 3.5 GM/DL (3.2-5.2); BILIRUBIN,TOTAL 0.5 MG/DL (0.2-1.0); CREATININE FOR GFR 1.38 MG/DL (0.70-1.30); POTASSIUM SERUM 4.1 MEQ/L (3.5-5.1); TOTAL PROTEIN 6.5 GM/DL (6.4-8.2)
== END ==
LOC: M PLALAB 13:37
PROVIDERS: ATTEND Nurse Practitioner Family
DX: R39.15 Urgency of urination (principal); R53.83 Other fatigue

== ENCOUNTER → 2021-11-20 | Outpatient (CLI) | payer OTHER ==
[2021-11-20 16:25] LABS: FERRITIN 66 NG/ML (26-388); IRON (FE) 58 UG/DL (65-175); TOTAL IRON BINDING CAPACITY 322 UG/DL (250-450)
[2021-11-20 16:38] LABS: FOLATE > 24.0 NG/ML; VITAMIN B12 LEVEL 641 PG/ML
== END ==
LOC: M WUC 11:07
PROVIDERS: ATTEND Nurse Practitioner Family
DX: D64.9 Anemia, unspecified (principal)

== ENCOUNTER → 2022-01-03 | Outpatient (CLI) | payer OTHER ==
[2022-01-03 10:07] LABS: BASO % 0.5 % (0.0-1.0); EOS # 0.2 10^3/uL (0.0-0.5); EOS % 2.2 % (0.0-3.0); HEMATOCRIT 44.2 % (42.0-52.0); HEMOGLOBIN 15.2 g/dl (13.5-17.5); LYMPH # 1.8 10^3/uL (1.5-5.0); LYMPH % 23.1 % (24.0-44.0); MEAN CORPUSCULAR HEMOGLOBIN 33.9 pg (27.0-33.0); MEAN CORPUSCULAR HGB CONC 34.4 g/dl (32.0-36.5); MEAN CORPUSCULAR VOLUME 98.4 fl (80.0-96.0); MONO # 0.8 10^3/uL (0.0-0.8); MONO % 10.7 % (2.0-8.0); NEUTROPHILS % 63.2 % (36.0-66.0); PLATELET COUNT, AUTOMATED 197 10^3/uL (150-450); RED BLOOD COUNT 4.49 10^6/uL (4.30-6.10); WHITE BLOOD COUNT 7.8 10^3/uL (4.0-10.0)
[2022-01-03 10:28] LABS: PERCENT SATURATION 19.6 % (19.7-50.0)
== END ==
LOC: M LAB 08:43
PROVIDERS: ATTEND Nurse Practitioner Family
DX: D50.9 Iron deficiency anemia, unspecified (principal)

== ENCOUNTER → 2022-07-05 | Outpatient (CLI) | payer OTHER ==
[~2022-07-05] MED LIST changes: +ANOR1AER; +CARV12.5; +INCR1INH; +LEVO1TAB39; -LEVO500T4; +OMEP40CA5 PO
== END ==
LOC: M LABSMTC 10:36
PROVIDERS: ATTEND Anesthesiology
DX: Z01.812 Encounter for preprocedural laboratory examination (principal)

== ENCOUNTER 2022-07-10 08:41 | Day surgery (SDC) | payer OTHER ==
[~2022-07-10] VITALS: Ht 172.7 cm; Wt 75.3 kg
[~2022-07-10 08:41] MED LIST changes: +LIDOCAINE 2% 100MG/5ML SDV (FOR ANES.) As Ordered ONE; +NS 1,000 ML IV ONE; +propofoL 200 MG/20 ML VIAL As Ordered ONE
[2022-07-10] MEDS ORDERED: fentaNYL 100 MCG/2 ML INJECTION As Ordered ONE (09:14)
[2022-07-10 09:40] VITALS: BP 128/85
== END 2022-07-10 09:55 | disposition home or self-care (01) ==
LOC: M OPP 08:41
PROVIDERS: ATTEND Surgery
DX: K29.70 Gastritis, unspecified, without bleeding (principal); K29.80 Duodenitis without bleeding; Z80.0 Family history of malignant neoplasm of digestive organs; Z79.01 Long term (current) use of anticoagulants; Z79.02 Long term (current) use of antithrombotics/antiplatelets; Z79.51 Long term (current) use of inhaled steroids; Z79.82 Long term (current) use of aspirin; Z79.899 Other long term (current) drug therapy; M19.90 Unspecified osteoarthritis, unspecified site; Z95.828 Presence of other vascular implants and grafts
CPT/HCPCS: 43239; 88305; J3010

== ENCOUNTER → 2022-08-13 | Outpatient (CLI) | payer OTHER ==
[~2022-08-13] MED LIST changes: -LIDOCAINE 2% 100MG/5ML SDV (FOR ANES.) As Ordered ONE; -NS 1,000 ML IV ONE; -propofoL 200 MG/20 ML VIAL As Ordered ONE
== END ==
LOC: M WUC 14:56
PROVIDERS: ATTEND Nurse Practitioner Family
DX: M79.642 Pain in left hand (principal)

== ENCOUNTER 2022-09-25 21:15 | Emergency (ER) | payer OTHER ==
[~2022-09-25] VITALS: Ht 172.7 cm; Wt 74.1 kg
[2022-09-25 22:28] LABS: BASO % 0.4 % (0.0-1.0); EOS # 0.1 10^3/uL (0.0-0.5); EOS % 0.8 % (0.0-3.0); HEMATOCRIT 46.6 % (42.0-52.0); HEMOGLOBIN 16.2 g/dl (13.5-17.5); LYMPH # 0.4 10^3/uL (1.5-5.0); LYMPH % 3.6 % (24.0-44.0); MEAN CORPUSCULAR HGB CONC 34.8 g/dl (32.0-36.5); MEAN CORPUSCULAR VOLUME 97.7 fl (80.0-96.0); MONO # 0.5 10^3/uL (0.0-0.8); MONO % 4.7 % (2.0-8.0); NEUTROPHILS # 8.8 10^3/uL (1.5-8.5); PLATELET COUNT, AUTOMATED 152 10^3/uL (150-450); RED BLOOD COUNT 4.77 10^6/uL (4.30-6.10); WHITE BLOOD COUNT 9.7 10^3/uL (4.0-10.0)
[2022-09-25 22:56] LABS: BILIRUBIN,DIRECT 0.3 MG/DL (<0.4); BILIRUBIN,TOTAL 0.8 MG/DL (0.3-1.2); TOTAL PROTEIN 7.2 G/DL (5.7-8.2)
[2022-09-25] MEDS ORDERED: ONDANSETRON 4MG 2ML VIAL IV ONE (23:25)
[2022-09-25] MEDS ORDERED: NS 1,000 ML IV ONE (23:25)
[2022-09-25] MEDS ORDERED: KETOROLAC 30 MG/ML 1ML VIAL IV ONE (23:25)
[2022-09-25] MEDS ORDERED: ISOVUE-370 76% 100ML VIAL As Ordered ONE (23:26)
[2022-09-26 00:47] LABS: RSV AMPLIFICATION NEGATIVE (NEGATIVE)
[2022-09-26] MEDS ORDERED: ONDA4TAB6 PO (00:58)
[2022-09-26 01:00] VITALS: BP 104/57
== END 2022-09-26 01:20 | disposition home or self-care (01) ==
LOC: M ED 21:15
DX: A08.4 Viral intestinal infection, unspecified (principal); I25.2 Old myocardial infarction; I10 Essential (primary) hypertension; E78.5 Hyperlipidemia, unspecified; J44.9 Chronic obstructive pulmonary disease, unspecified; Z95.0 Presence of cardiac pacemaker; Z95.1 Presence of aortocoronary bypass graft; J43.9 Emphysema, unspecified; K57.32 Diverticulitis of large intestine without perforation or abscess without bleeding; Z95.5 Presence of coronary angioplasty implant and graft; Z86.73 Personal history of transient ischemic attack (TIA), and cerebral infarction without residual deficits; F17.200 Nicotine dependence, unspecified, uncomplicated; F12.10 Cannabis abuse, uncomplicated; Z79.01 Long term (current) use of anticoagulants; Z79.82 Long term (current) use of aspirin; Z79.899 Other long term (current) drug therapy
CPT/HCPCS: 74177; 80047; 80076; 83605; 83690; 85025; 87631; 96361; 96374; 96375; 99284; J1885; J2405

== ENCOUNTER → 2022-10-08 | Outpatient (REF) | payer OTHER ==
[~2022-10-08] MED LIST changes: +ONDA4TAB6 PO
== END ==
LOC: M LAB REF 17:20
PROVIDERS: ATTEND Nurse Practitioner Family
DX: R30.0 Dysuria (principal)

== ENCOUNTER → 2022-11-09 | Outpatient (CLI) | payer OTHER ==
[~2022-11-09] MED LIST changes: +TIMO0.5S20 OU; -TIMO0.5S29 OU
[2022-11-09 18:01] LABS: APPEARANCE, URINE CLEAR (CLEAR); BACTERIA, URINE AUTO NEGATIVE (NEGATIVE); BILIRUBIN, URINE AUTO NEGATIVE (NEGATIVE); BLOOD, URINE BLOOD NEGATIVE (NEGATIVE); COLOR, URINE YELLOW (YELLOW); GLUCOSE, URINE (UA) AUTO NEGATIVE (NEGATIVE); KETONE, URINE AUTO NEGATIVE (NEGATIVE); LEUKOCYTE ESTERASE, URINE AUTO NEGATIVE (NEGATIVE); NITRITE, URINE AUTO NEGATIVE (NEGATIVE); PROTEIN, URINE AUTO NEGATIVE (NEGATIVE); RBC, URINE AUTO 0 /HPF (0-3); SQUAMOUS EPITHELIAL CELL UR AU 0 /HPF (0-6); UROBILINOGEN, URINE AUTO 0.2 mg/dL (0.0-2.0); WBC, URINE AUTO 1 /HPF (0-3)
== END ==
LOC: M WUC 13:01
PROVIDERS: ATTEND Nurse Practitioner Family
DX: R30.0 Dysuria (principal)

== ENCOUNTER → 2022-11-10 | Outpatient (CLI) | payer OTHER | LOC: M RAD 09:34 | PROVIDERS: ATTEND Nurse Practitioner Family | DX: Z87.891 Personal history of nicotine dependence (principal) ==

== ENCOUNTER → 2023-08-06 | Outpatient (CLI) | payer OTHER ==
[2023-08-06 13:18] LABS: HEMATOCRIT 45.8 % (42.0-52.0); HEMOGLOBIN 15.5 g/dl (13.5-17.5); MEAN CORPUSCULAR HEMOGLOBIN 33.9 pg (27.0-33.0); MEAN CORPUSCULAR HGB CONC 33.8 g/dl (32.0-36.5); MEAN CORPUSCULAR VOLUME 100.2 fl (80.0-96.0); PLATELET COUNT, AUTOMATED 154 10^3/uL (150-450); RED BLOOD COUNT 4.57 10^6/uL (4.30-6.10); WHITE BLOOD COUNT 5.1 10^3/uL (4.0-10.0)
[2023-08-06 13:21] LABS: ALBUMIN 3.9 G/DL (3.2-5.2); ALKALINE PHOSPHATASE 85 U/L (46-116); ALT/SGPT 32 U/L (7.0-40); AST/SGOT 24 U/L (<34); BILIRUBIN,TOTAL 0.7 MG/DL (0.3-1.2); BLOOD UREA NITROGEN 16 MG/DL (9-23); CALCIUM LEVEL 9.3 MG/DL (8.3-10.6); CARBON DIOXIDE LEVEL 30 MMOL/L (20-31); CHLORIDE LEVEL 105 MMOL/L (98-107); CHOLESTEROL LEVEL 129 MG/DL (<200); CHOLESTEROL RISK RATIO 2.78 (<5); CREATININE FOR GFR 1.23 MG/DL (0.70-1.30); GLOMERULAR FILTRATION RATE > 60.0 (>49); GLUCOSE, FASTING 98 MG/DL (74-106); HDL CHOLESTEROL 46.4 MG/DL (>40); NON-HDL-C 82.6 MG/DL; POTASSIUM SERUM 4.3 MMOL/L (3.5-5.1); SODIUM LEVEL 138 MMOL/L (136-145); TRIGLYCERIDES LEVEL 88 MG/DL (<150)
== END ==
LOC: M WUC 08:43
PROVIDERS: ATTEND Physician Assistant
DX: I48.0 Paroxysmal atrial fibrillation (principal); E78.2 Mixed hyperlipidemia

== ENCOUNTER → 2023-09-20 | Outpatient (CLI) | payer OTHER ==
[~2023-09-20] MED LIST changes: -MIRA1POW3 PO; +MIRA33506 PO
== END ==
LOC: M SOG 13:57
PROVIDERS: ATTEND Orthopaedic Surgery Hand Surgery
DX: M19.90 Unspecified osteoarthritis, unspecified site (principal)

== ENCOUNTER → 2023-11-02 | Outpatient (CLI) | payer OTHER ==
[~2023-11-02] MED LIST changes: -ANOR1AER; +ANOR1AER INH; +THERTAB52 PO; +VENTAER INH; +VITA400C53 PO
[2023-11-02 11:32] LABS: BASO # 0.1 10^3/uL (0.0-0.2); BASO % 0.8 % (0.0-1.0); EOS # 0.2 10^3/uL (0.0-0.5); EOS % 2.9 % (0.0-3.0); HEMATOCRIT 44.4 % (42.0-52.0); HEMOGLOBIN 15.1 g/dl (13.5-17.5); LYMPH # 2.2 10^3/uL (1.5-5.0); LYMPH % 35.8 % (24.0-44.0); MEAN CORPUSCULAR HEMOGLOBIN 34.8 pg (27.0-33.0); MEAN CORPUSCULAR VOLUME 102.3 fl (80.0-96.0); MONO # 0.8 10^3/uL (0.0-0.8); MONO % 12.7 % (2.0-8.0); NEUTROPHILS # 2.9 10^3/uL (1.5-8.5); NEUTROPHILS % 47.6 % (36.0-66.0); PLATELET COUNT, AUTOMATED 173 10^3/uL (150-450); RED BLOOD COUNT 4.34 10^6/uL (4.30-6.10); WHITE BLOOD COUNT 6.1 10^3/uL (4.0-10.0)
[2023-11-02 11:58] LABS: ALBUMIN 3.8 G/DL (3.2-5.2); ALKALINE PHOSPHATASE 88 U/L (46-116); ALT/SGPT 29 U/L (7.0-40); AST/SGOT 23 U/L (<34); BILIRUBIN,TOTAL 0.6 MG/DL (0.3-1.2); BLOOD UREA NITROGEN 17 MG/DL (9-23); CALCIUM LEVEL 8.6 MG/DL (8.3-10.6); CARBON DIOXIDE LEVEL 29 MMOL/L (20-31); CHLORIDE LEVEL 106 MMOL/L (98-107); CREATININE FOR GFR 1.24 MG/DL (0.70-1.30); GLOMERULAR FILTRATION RATE > 60.0 (>49); GLUCOSE, FASTING 91 MG/DL (74-106); POTASSIUM SERUM 4.2 MMOL/L (3.5-5.1); SODIUM LEVEL 141 MMOL/L (136-145); TOTAL PROTEIN 6.7 G/DL (5.7-8.2)
[2023-11-02 12:32] LABS: HEPATITIS C VIRUS ABY INDEX < 0.02 INDEX (<0.8)
== END ==
LOC: M WUC 09:00
PROVIDERS: ATTEND Nurse Practitioner Family
DX: Z01.818 Encounter for other preprocedural examination (principal); I10 Essential (primary) hypertension; J43.9 Emphysema, unspecified

== ENCOUNTER 2023-11-08 05:57 | Day surgery (SDC) | payer OTHER ==
[~2023-11-08] VITALS: Ht 172.7 cm; Wt 78.3 kg
[2023-11-08] MEDS ORDERED: KETOROLAC 60MG 2ML VIAL As Ordered ONE (06:51)
[2023-11-08] MEDS ORDERED: LIDOCAINE 2% 100MG/5ML SDV (FOR ANES.) As Ordered ONE (06:51)
[2023-11-08] MEDS ORDERED: ONDANSETRON 4MG 2ML VIAL As Ordered ONE (06:51)
[2023-11-08] MEDS ORDERED: propofoL 200 MG/20 ML VIAL As Ordered ONE (06:51)
[2023-11-08] MEDS ORDERED: fentaNYL 100 MCG/2 ML INJECTION As Ordered ONE (06:56)
[2023-11-08] MEDS: LR 1,000 ML IV SCH (07:09)
[2023-11-08] MEDS ORDERED: POLYSPORIN TOPICAL OINTMENT 15GM As Ordered ONE (07:14)
[2023-11-08] MEDS: LIDOCAINE 1% SDV 5ML VIAL PN ONE (07:20)
[2023-11-08] MEDS: ROPIvacaine 0.5% 30ML VIAL PN ONE (07:21)
[2023-11-08] MEDS: dexAMETHasone 10MG/1ML VIAL PRES.FREE PN ONE (07:21)
[2023-11-08] MEDS: fentaNYL 100 MCG/2 ML INJECTION IV PRN (07:26)
[2023-11-08] MEDS: MIDAZOLAM INJ 2MG/2ML VIAL IV PRN (07:27)
[2023-11-08] MEDS ORDERED: ceFAZolin 2 GM/D5W 50 ML IV BAG As Ordered ONE (07:44)
[2023-11-08] MEDS: ceFAZolin SOD 2 GM in IV 1 EA IV ONE (07:49)
[2023-11-08] MEDS ORDERED: ACETAMINOPHEN 1000MG 100ML IV BAG As Ordered ONE (07:58)
[2023-11-08] MEDS ORDERED: ePHEDrine SULFATE 25 MG/5 ML(5MG/ML) SYRINGE As Ordered ONE (08:00)
[2023-11-08] MEDS: BACITRACIN OINTMENT 30GM TUBE As Ordered ONE (09:00)
[2023-11-08] MEDS ORDERED: LR 1,000 ML IV SCH (09:10)
[2023-11-08] MEDS ORDERED: HYDROMORPHONE HCL 0.5 MG/ 0.5 ML SYRINGE IV PRN (09:10)
[2023-11-08] MEDS ORDERED: fentaNYL 100 MCG/2 ML INJECTION IV PRN (09:10)
[2023-11-08] MEDS ORDERED: oxyCODONE 5MG TAB PO PRN (09:10)
[2023-11-08] MEDS ORDERED: PERC5TAB12 PO (09:28)
[2023-11-08] MEDS: ONDANSETRON 4MG 2ML VIAL IV PRN (10:10)
[2023-11-08 11:35] VITALS: BP 124/87; TEMP 97; O2SAT 100
== END 2023-11-08 12:00 | disposition home or self-care (01) ==
LOC: M SDC 05:57
PROVIDERS: ATTEND Orthopaedic Surgery Hand Surgery
DX: M18.12 Unilateral primary osteoarthritis of first carpometacarpal joint, left hand (principal); I10 Essential (primary) hypertension; Z86.73 Personal history of transient ischemic attack (TIA), and cerebral infarction without residual deficits; J44.9 Chronic obstructive pulmonary disease, unspecified; I25.10 Atherosclerotic heart disease of native coronary artery without angina pectoris; E78.5 Hyperlipidemia, unspecified; F17.210 Nicotine dependence, cigarettes, uncomplicated; F12.10 Cannabis abuse, uncomplicated; Z95.5 Presence of coronary angioplasty implant and graft; Z95.0 Presence of cardiac pacemaker; Z79.01 Long term (current) use of anticoagulants; Z79.82 Long term (current) use of aspirin; Z79.899 Other long term (current) drug therapy; Z79.51 Long term (current) use of inhaled steroids
CPT/HCPCS: 25447; 64415; 76000; C1713; J0131; J0665; J0690; J1100; J1885; J2250; J2405; J2795; J3010

== ENCOUNTER → 2023-11-15 | Outpatient (CLI) | payer OTHER ==
[~2023-11-15] MED LIST changes: +PERC5TAB12 PO
== END ==
LOC: M SOG 08:25
PROVIDERS: ATTEND Physician Assistant
DX: M79.645 Pain in left finger(s) (principal)

== ENCOUNTER 2023-11-23 21:00 | Emergency (ER) | payer OTHER ==
[~2023-11-23] VITALS: Ht 172.7 cm; Wt 76.5 kg
[~2023-11-23 21:00] MED LIST changes: +BUPR-597 PO; -BUPR300T92 PO
[2023-11-23 22:03] LABS: BASO # 0.1 10^3/uL (0.0-0.2); BASO % 0.8 % (0.0-1.0); EOS # 0.2 10^3/uL (0.0-0.5); EOS % 1.6 % (0.0-3.0); HEMATOCRIT 32.5 % (42.0-52.0); HEMOGLOBIN 11.2 g/dl (13.5-17.5); LYMPH # 2.2 10^3/uL (1.5-5.0); LYMPH % 23.5 % (24.0-44.0); MEAN CORPUSCULAR HGB CONC 34.5 g/dl (32.0-36.5); MEAN CORPUSCULAR VOLUME 98.8 fl (80.0-96.0); MONO # 0.9 10^3/uL (0.0-0.8); MONO % 10.1 % (2.0-8.0); NEUTROPHILS # 5.9 10^3/uL (1.5-8.5); NEUTROPHILS % 63.7 % (36.0-66.0); PLATELET COUNT, AUTOMATED 165 10^3/uL (150-450); RED BLOOD COUNT 3.29 10^6/uL (4.30-6.10); WHITE BLOOD COUNT 9.3 10^3/uL (4.0-10.0)
[2023-11-23] MEDS: NS 1,000 ML IV ONE (22:10)
[2023-11-23] MEDS: PANTOPRAZOLE SODIUM 40 MG in D5W 50 ML IV SCH (22:24)
[2023-11-23 22:34] LABS: LIPASE 47 U/L (12-53)
[2023-11-23 22:37] LABS: ALBUMIN 2.8 G/DL (3.2-5.2); ALKALINE PHOSPHATASE 70 U/L (46-116); ALT/SGPT 19 U/L (7.0-40); AST/SGOT 18 U/L (<34); BILIRUBIN,DIRECT 0.1 MG/DL (<0.4); BILIRUBIN,TOTAL 0.5 MG/DL (0.3-1.2); BLOOD UREA NITROGEN 36 MG/DL (9-23); CALCIUM LEVEL 8.2 MG/DL (8.3-10.6); CARBON DIOXIDE LEVEL 24 MMOL/L (20-31); CHLORIDE LEVEL 108 MMOL/L (98-107); CREATININE FOR GFR 1.23 MG/DL (0.70-1.30); GLOMERULAR FILTRATION RATE > 60.0 (>49); GLUCOSE, FASTING 119 MG/DL (74-106); POTASSIUM SERUM 4.7 MMOL/L (3.5-5.1); SODIUM LEVEL 139 MMOL/L (136-145); TOTAL PROTEIN 5.7 G/DL (5.7-8.2)
[2023-11-23] MEDS ORDERED: ISOVUE-370 76% 100ML VIAL As Ordered ONE (23:23)
[2023-11-24 00:53] VITALS: TEMP 98.8
[2023-11-24 01:54] LABS: HEMATOCRIT 27.9 % (42.0-52.0); HEMOGLOBIN 9.7 g/dl (13.5-17.5); MEAN CORPUSCULAR HGB CONC 34.8 g/dl (32.0-36.5); MEAN CORPUSCULAR VOLUME 100.7 fl (80.0-96.0); PLATELET COUNT, AUTOMATED 156 10^3/uL (150-450); RED BLOOD COUNT 2.77 10^6/uL (4.30-6.10); WHITE BLOOD COUNT 8.5 10^3/uL (4.0-10.0)
[2023-11-24 02:52] LABS: INR 1.2; PARTIAL THROMBOPLASTIN TIME 25.2 SECONDS (24.8-34.2); PROTHROMBIN TIME 14.9 SECONDS (12.5-14.5)
[2023-11-24 04:01] VITALS: BP 108/69; O2SAT 97
== END 2023-11-24 04:37 | disposition short-term general hospital (02) ==
LOC: M ED 21:00 → UNDOADMIN 11-24 00:52 → M ED INP 11-24 00:52 → M ED 11-24 04:37
DX: K92.2 Gastrointestinal hemorrhage, unspecified (principal); I44.0 Atrioventricular block, first degree; I10 Essential (primary) hypertension; K21.9 Gastro-esophageal reflux disease without esophagitis; E78.5 Hyperlipidemia, unspecified; J44.9 Chronic obstructive pulmonary disease, unspecified; F17.210 Nicotine dependence, cigarettes, uncomplicated; F12.10 Cannabis abuse, uncomplicated; F10.10 Alcohol abuse, uncomplicated; Z79.51 Long term (current) use of inhaled steroids; Z79.1 Long term (current) use of non-steroidal anti-inflammatories (NSAID); Z79.810 Long term (current) use of selective estrogen receptor modulators (SERMs); Z79.899 Other long term (current) drug therapy
CPT/HCPCS: 71260; 74177; 80048; 80076; 83605; 83690; 85025; 85027; 85610; 85730; 86850; 86900; 86901; 87040; 87507; 87635; 93005; 99291; 99292; C9113; Q9967

== ENCOUNTER → 2023-12-01 | Outpatient (CLI) | payer OTHER | LOC: M RAD 08:50 | PROVIDERS: ATTEND Nurse Practitioner Family | DX: Z87.891 Personal history of nicotine dependence (principal) ==

== ENCOUNTER → 2023-12-01 | Outpatient (CLI) | payer OTHER ==
[2023-12-01 12:18] LABS: BASO % 0.6 % (0.0-1.0); EOS # 0.2 10^3/uL (0.0-0.5); EOS % 3.3 % (0.0-3.0); HEMATOCRIT 23.7 % (42.0-52.0); HEMOGLOBIN 7.9 g/dl (13.5-17.5); LYMPH # 1.4 10^3/uL (1.5-5.0); LYMPH % 29.3 % (24.0-44.0); MEAN CORPUSCULAR HEMOGLOBIN 33.5 pg (27.0-33.0); MEAN CORPUSCULAR HGB CONC 33.3 g/dl (32.0-36.5); MEAN CORPUSCULAR VOLUME 100.4 fl (80.0-96.0); MONO # 0.7 10^3/uL (0.0-0.8); MONO % 14.6 % (2.0-8.0); NEUTROPHILS # 2.6 10^3/uL (1.5-8.5); NEUTROPHILS % 51.8 % (36.0-66.0); PLATELET COUNT, AUTOMATED 228 10^3/uL (150-450); RED BLOOD COUNT 2.36 10^6/uL (4.30-6.10); WHITE BLOOD COUNT 4.9 10^3/uL (4.0-10.0)
[2023-12-01 12:23] LABS: ALBUMIN 2.8 G/DL (3.2-5.2); ALKALINE PHOSPHATASE 64 U/L (46-116); ALT/SGPT 40 U/L (7.0-40); AST/SGOT 47 U/L (<34); BILIRUBIN,TOTAL 0.3 MG/DL (0.3-1.2); BLOOD UREA NITROGEN 11 MG/DL (9-23); CALCIUM LEVEL 8.5 MG/DL (8.3-10.6); CARBON DIOXIDE LEVEL 25 MMOL/L (20-31); CHLORIDE LEVEL 109 MMOL/L (98-107); CREATININE FOR GFR 1.21 MG/DL (0.70-1.30); GLOMERULAR FILTRATION RATE > 60.0 (>49); GLUCOSE, FASTING 97 MG/DL (74-106); POTASSIUM SERUM 3.9 MMOL/L (3.5-5.1); SODIUM LEVEL 141 MMOL/L (136-145); TOTAL PROTEIN 5.4 G/DL (5.7-8.2)
== END ==
LOC: M WUC 08:16
PROVIDERS: ATTEND Nurse Practitioner Family
DX: K29.61 Other gastritis with bleeding (principal)

== ENCOUNTER → 2023-12-14 | Outpatient (CLI) | payer OTHER | LOC: M SOG 08:11 | PROVIDERS: ATTEND Physician Assistant | DX: M79.645 Pain in left finger(s) (principal) ==

== ENCOUNTER → 2024-01-04 | Outpatient (REF) | payer OTHER ==
[~2024-01-04] MED LIST changes: +ONDA-282 PO; -ONDA4TAB6 PO
[2024-01-04 17:37] LABS: BASO # 0.1 10^3/uL (0.0-0.2); BASO % 1.2 % (0.0-1.0); EOS # 0.2 10^3/uL (0.0-0.5); EOS % 3.1 % (0.0-3.0); HEMATOCRIT 30.2 % (42.0-52.0); HEMOGLOBIN 9.6 g/dl (13.5-17.5); LYMPH # 2.2 10^3/uL (1.5-5.0); LYMPH % 38.2 % (24.0-44.0); MEAN CORPUSCULAR HEMOGLOBIN 28.7 pg (27.0-33.0); MEAN CORPUSCULAR HGB CONC 31.8 g/dl (32.0-36.5); MEAN CORPUSCULAR VOLUME 90.4 fl (80.0-96.0); MONO # 0.8 10^3/uL (0.0-0.8); MONO % 14.2 % (2.0-8.0); NEUTROPHILS # 2.5 10^3/uL (1.5-8.5); NEUTROPHILS % 43.3 % (36.0-66.0); PLATELET COUNT, AUTOMATED 229 10^3/uL (150-450); RED BLOOD COUNT 3.34 10^6/uL (4.30-6.10); WHITE BLOOD COUNT 5.8 10^3/uL (4.0-10.0)
== END ==
LOC: M LABWUC 16:31
PROVIDERS: ATTEND Nurse Practitioner Family
DX: K29.61 Other gastritis with bleeding (principal)

== ENCOUNTER → 2024-01-31 | Outpatient (CLI) | payer OTHER | LOC: M SOG 07:54 | PROVIDERS: ATTEND Physician Assistant | DX: M79.645 Pain in left finger(s) (principal) ==

== ENCOUNTER → 2024-08-29 | Outpatient (CLI) | payer OTHER ==
[~2024-08-29] MED LIST changes: -BAYE325T12 PO; +BAYE325T2 PO; +GABA-1172 PO; -GABA-282 PO
[2024-08-29 10:44] LABS: BASO % 0.7 % (0.0-1.0); EOS # 0.2 10^3/uL (0.0-0.5); EOS % 3.9 % (0.0-3.0); HEMATOCRIT 45.1 % (42.0-52.0); HEMOGLOBIN 15.3 g/dl (13.5-17.5); LYMPH # 1.9 10^3/uL (1.5-5.0); LYMPH % 30.5 % (24.0-44.0); MEAN CORPUSCULAR HEMOGLOBIN 33.1 pg (27.0-33.0); MEAN CORPUSCULAR HGB CONC 33.9 g/dl (32.0-36.5); MEAN CORPUSCULAR VOLUME 97.6 fl (80.0-96.0); MONO # 0.9 10^3/uL (0.0-0.8); MONO % 14.7 % (2.0-8.0); NEUTROPHILS # 3.1 10^3/uL (1.5-8.5); PLATELET COUNT, AUTOMATED 151 10^3/uL (150-450); RED BLOOD COUNT 4.62 10^6/uL (4.30-6.10); WHITE BLOOD COUNT 6.1 10^3/uL (4.0-10.0)
[2024-08-29 11:07] LABS: ALBUMIN 3.9 G/DL (3.2-5.2); BILIRUBIN,TOTAL 0.8 MG/DL (0.3-1.2); CALCIUM LEVEL 9.3 MG/DL (8.3-10.6); CHOLESTEROL RISK RATIO 2.98 (<5); CREATININE FOR GFR 1.29 MG/DL (0.70-1.30); GLOMERULAR FILTRATION RATE 59.9 (>49); HDL CHOLESTEROL 39.2 MG/DL (>40); NON-HDL-C 77.8 MG/DL; POTASSIUM SERUM 4.4 MMOL/L (3.5-5.1); TOTAL PROTEIN 7.4 G/DL (5.7-8.2)
== END ==
LOC: M WUC 08:25
PROVIDERS: ATTEND Nurse Practitioner Family
DX: I10 Essential (primary) hypertension (principal); I25.10 Atherosclerotic heart disease of native coronary artery without angina pectoris

== ENCOUNTER → 2024-11-15 | Outpatient (CLI) | payer OTHER ==
[2024-11-15 17:33] LABS: BASO % 0.6 % (0.0-1.0); EOS # 0.2 10^3/uL (0.0-0.5); EOS % 2.5 % (0.0-3.0); HEMATOCRIT 43.8 % (42.0-52.0); HEMOGLOBIN 15.3 g/dl (13.5-17.5); LYMPH # 2.2 10^3/uL (1.5-5.0); LYMPH % 33.1 % (24.0-44.0); MEAN CORPUSCULAR HEMOGLOBIN 34.3 pg (27.0-33.0); MEAN CORPUSCULAR HGB CONC 34.9 g/dl (32.0-36.5); MEAN CORPUSCULAR VOLUME 98.2 fl (80.0-96.0); MONO # 0.8 10^3/uL (0.0-0.8); MONO % 11.4 % (2.0-8.0); NEUTROPHILS # 3.5 10^3/uL (1.5-8.5); NEUTROPHILS % 52.1 % (36.0-66.0); PLATELET COUNT, AUTOMATED 171 10^3/uL (150-450); RED BLOOD COUNT 4.46 10^6/uL (4.30-6.10); WHITE BLOOD COUNT 6.8 10^3/uL (4.0-10.0)
[2024-11-15 18:03] LABS: ALBUMIN 3.9 G/DL (3.2-5.2); BILIRUBIN,TOTAL 0.6 MG/DL (0.3-1.2); CALCIUM LEVEL 9.1 MG/DL (8.3-10.6); CREATININE FOR GFR 1.19 MG/DL (0.70-1.30); GLOMERULAR FILTRATION RATE 68.2 (>49); POTASSIUM SERUM 4.2 MMOL/L (3.5-5.1); TOTAL PROTEIN 7.2 G/DL (5.7-8.2)
== END ==
LOC: M WUC 13:56
PROVIDERS: ATTEND Nurse Practitioner Family
DX: R19.7 Diarrhea, unspecified (principal)

== ENCOUNTER → 2024-11-16 | Outpatient (REF) | payer OTHER ==
[~2024-11-16] MED LIST changes: -BUPR-597 PO; +BUPR-766 PO
== END ==
LOC: M LAB REF 10:12
PROVIDERS: ATTEND Nurse Practitioner Family
DX: R19.7 Diarrhea, unspecified (principal)

== ENCOUNTER → 2024-12-12 | Outpatient (CLI) | payer OTHER | LOC: M RAD 09:00 | PROVIDERS: ATTEND Nurse Practitioner Family | DX: Z87.891 Personal history of nicotine dependence (principal) ==